=== PATIENT | female | born 1955 | race Caucasian/White ===

== ENCOUNTER → 2019-08-02 | Outpatient (CLI) | payer MEDICARE, OTHER, SELFPAY ==
[2019-08-02 10:13] LABS: Erythrocyte Sedimentation Rate 5 mm/hr (0-30)
[2019-08-02 10:16] LABS: Hematocrit 42.3 % (37-47); Hemoglobin 13.5 g/dL (12.0-15.0); Mean Corp Hgb Conc 31.9 g/dL (32-36); Mean Corpuscular Hgb 30.1 pg (27.0-32.0); Mean Corpuscular Volume 94.2 fL (81-99); Mean Platelet Vol. 11.2 fl (6.2-12.0); Platelet Count 217 K/mm3 (150-450); RBC Distribution Width CV 13.3 % (11.6-14.6); RBC Distribution Width SD 46.5 fl (35.1-43.9); Red Blood Count 4.49 M/mm3 (4.2-5.4); White Blood Count 5.9 K/mm3 (4.4-11.0)
[2019-08-02 10:47] LABS: Thyroid Stim Hormone (TSH) 1.23 uIU/mL (0.358-3.74)
== END | disposition home or self-care (01) ==
LOC: MFPLAB 08:20
PROVIDERS: Family Provider Family Medicine; PCP Family Medicine; Referring Provider Family Medicine; Visit Provider Family Medicine
DX: M79.7 Fibromyalgia (principal)
CPT/HCPCS: 36415; 82306; 84443; 85027; 85652

== ENCOUNTER → 2019-10-11 06:16 | Outpatient (CLI) | payer MEDICARE, OTHER, SELFPAY ==
[2019-08-18 13:36] VITALS: BMI 22.8
--- NOTE | 2019-10-11 15:14 | STRESSREP ---
Stress Test Report Date: 10-11-2019 Procedure: Exercise tolerance test/imaging study Indications: Chest pain Consent: Per the patient Procedure: The patient exercised on a Zeeshan protocol for 9 minutes completing Stage III achieving a peak heart rate of 148 bpm (95 % predicted maximal heart rate) with a peak blood pressure 160/50 mmHg and a peak MET capacity of 10 METs. The baseline ECG demonstrated sinus bradycardia. The peak exercise ECG demonstrated findings compatible with an acceleration-dependent left bundle branch block pattern with the recovery ECG demonstrating return to the QRS duration towards baseline with residual ST and T wave abnormality in leads II, III, aVF, and V4 through V6. There was an occasional PVC pretest. The functional capacity was considered good. There was no complaint of chest discomfort during exercise or recovery. The examination was discontinued secondary to dyspnea. Impression: 1. Technically adequate (percent predicted maximal heart rate greater than 85%) exercise tolerance test 2. Peak exercise ECG with an acceleration-dependent left bundle branch block pattern with the recovery ECG demonstrating return to the QRS duration towards baseline with residual ST/T wave abnormality in leads II, III, aVF, and V4 through V6 3. There was an occasional PVC pretest 4. Nuclear images pending Myocardial perfusion imaging study: Technique: The patient was injected with 11.5 mCi of technetium 99m Cardiolite and subsequently rest SPECT Cardiolite nuclear imaging was obtained in the horizontal long, vertical long, and short axis views. The patient exercised on a Zeeshan protocol for 9 minutes completing Stage III achieving a peak heart rate of 148 bpm (95 % predicted maximal heart rate) with a peak blood pressure 160/50 mmHg and a peak MET capacity of 10 METs. The patient was injected with 31.6 mCi of technetium 99m Cardiolite and subsequently stress SPECT Cardiolite nuclear imaging was obtained in the horizontal long, vertical long, and short axis views. A gated Cardiolite study at peak stress was obtained. Interpretation: Rest and stress SPECT Cardiolite nuclear imaging status post realignment, normalization, and attenuation correction, demonstrates the appearance of relative uniform tracer uptake and myocardial perfusion appearing within normal limits. There is end systolic thickening and brightening. The gated Cardiolite study demonstrates myocardial thickening and inward wall motion. The reported LVEF is 68 %. Impression: 1. Rest and stress SPECT Cardiolite nuclear imaging demonstrate relative uniform tracer uptake and myocardial perfusion appearing within normal limits. 2. The gated Cardiolite study reports an LVEF of 68 %. This note was generated with [employer] software. It may contain incorrect words, spelling, and punctuation that were not noted in checking the note before signing.
== END ==
PROVIDERS: Family Provider Family Medicine; PCP Family Medicine; Referring Provider Internal Medicine Cardiovascular Disease; Visit Provider Internal Medicine Cardiovascular Disease
DX: R07.89 Other chest pain (principal); I25.10 Atherosclerotic heart disease of native coronary artery without angina pectoris; Q24.5 Malformation of coronary vessels; I10 Essential (primary) hypertension
CPT/HCPCS: 78452; 93017; A9500; A4216

== ENCOUNTER 2019-12-06 12:30 | Outpatient (RCR) | payer MEDICARE, OTHER, SELFPAY ==
[2019-08-18 13:36] VITALS: BMI 22.8
--- NOTE | 2019-11-08 13:29 | HP.PTEVAL_ITS ---
Patient's Visit Information SHYANNE ZEPEDA is a 64 year old F referred to Physical Therapy by Ian Benito MD with a diagnosis of LUMBAR DDD,LEFT PIRIFORMIS. Date of Evaluation: 11/08/19 Physical Therapist: Abdi Mccrary PT, Cert MDT, OCS - Visit Plan Frequency: 2x /Week Duration: 4 Weeks Plan: H/O LUMBAR FUSION 2 YEARS AGO SYMPTOMS NEVER WENT AWAY TOTALLY. PT INTERVENTIONS DLS ,POSTURAL EX'S ,LE STRENGTHENING ,MODALITIES NEEDED - Subjective Findings: This 64 y/o female presents to physical therapy with low bacK and with radicular symptoms left leg. Patient has h/o Lumbar fusion L3-5 2 years.Patient noticed symptoms after surgery left leg only thigt and planter heel. Occassional parathesia in toes. Aggraveting walking extended 2 miles ,standing,bending,lifting. Symptoms better sitting ,rest. Patient taking celebrex. Patient return to [facility] ,recommended celebrex and pain management.X-rays in [facility] showed stenosis.Patient bowel/bladder-.Coughing/sneezing-.Patient had PT in past. Patient symptoms affects ADl's,housework tasks . Patient symptoms affects QOL. SOCAIL: . VOCATION: retired - Objective POSTURE: mild foward posture. GAIT: reciprocal pattern. NEURO:c/o parathesia foot ,reflexes L3-4,L4-5,L5-S1 1/3. FLEXABLITY: hams /pririformis WFL. MMT: quads/hams 4/5,hip 4-/5,ankle 4/5. LUMBAR ROM: flexion min/mod loss,extension min/mod loss,side glides min loss - Special Tests L/S Slump test left side: Negative L/S Slump test right side: Negative L/S Left Straight Leg Raise: Negative L/S Right Straight Leg Raise: Negative Lumbar Standing: Flexion - Mechanical Response: No effect Lumbar Standing: Flexion - Symptoms During Testing: Produces Lumbar Standing: Flexion - Symptoms After Testing: No effect Lumbar Standing: Extension - Mechanical Response: No effect Lumbar Standing: Extension - Symptoms During Testing: No effect Lumbar Standing: Extension - Symptoms After Testing: No effect Lumbar Standing: Right Side Glides - Mechanical Response: No effect Lumbar Standing: Right Side [place] - Symptoms During Testing: No effect Lumbar Standing: Right Side [place] - Symptoms After Testing: No effect Lumbar Standing: Left Side [place] - Mechanical Response: No effect Lumbar Standing: Left Side [place] - Symptoms During Testing: No effect Lumbar Standing: Left Side [place] - Symptoms After Testing: No effect - Goals Goal 1:: Patient to be I with HEP Goal Time Frame: 4-6 Weeks Goal 2:: Patient to improve posture for ADLS'S Goal Time Frame: 4-6 Weeks Goal 3:: Patient to decrease low back pain and radicular symptoms left leg by 50% or> to improve function. Goal Time Frame: 4-6 Weeks Goal 4:: Patient to improve lumbar ROM for function of recovery Goal Time Frame: 4-6 Weeks Goal 5:: Patient to improve back owestry score by 5 points or> to improve QOL. Goal Time Frame: 4-6 Weeks - Rehabilitation Potential Physical Therapy Diagnosis: Patient has left lumbar pain with radicular left leg with h/o lumbar fusion L3-5 2 years ago . Patient has deficits with pain worse with walking/standing impairs funtion with ADL'S Rehabilitation Potential: Good - Anticipated Interventions Patient/Client Instruction: Educate patient on: Condition, Plan of Care For the Purpose of:: To decrease pain, To increase ROM, To improve muscle performance and motor function, To improve ability to perform ADL's, To increase tolerance to activity/condition/position, To improve ability of physical actions for home/community/work/leisure, To improve health of tissue, To decrease soft tissue restriction, To increase flexibility/ROM, To improve ability to perform tasks related to life management Therapeutic Exercise to Include: Strength training, Body mechanics, Postural training, Flexibilty training, Dynamic Lumbar Stabilization For the Purpose of:: To decrease pain, To increase ROM, To improve muscle performance and motor function, To improve ability to perform ADL's, To increase tolerance to activity/condition/position, To improve performance and independence with ADL's, To improve gait and locomotor functions, To reduce risk of recurrence, To improve ability to perform tasks related to life management TENS: Yes IF ES: Yes Cryotherapy (ice pack, ice massage): Yes Thermo therapy (hot pack): Yes Ultrasound (thermal/non thermal): Yes For the Purpose of:: To decrease pain, To increase ROM, To improve nutrient delivery to tissue, To increase oxygenation perfusion, To improve health of tissue, To decrease soft tissue restriction Thank you for the opportunity to evaluate your patient. For Medicare and Medicare HMO plans, please review the plan of care and approve it. It will need to be FAXED BACK to us at [phone] for Medicare purposes. For Medicare only, by signing this I certify the plan of care. Please let me know if there are questions or concerns regarding this plan of care. Physician Signature: Date:
--- NOTE | 2019-12-06 13:14 | HP.PTDCSUM ---
HP - PT D/C Summary It has been my pleasure to treat SHYANNE ZEPEDA referred by Ian Benito MD, with the diagnosis of LUMBAR DDD,LEFT PIRIFORMIS for a total of 9 visit(s). Discharge Date: 12/06/19 Please see the following information for a summary of their discharge status. - Subjective Subjective: Symptoms about same with intermitaant parathesia/tingling. Occassional back pain, But enjoyed ex's - Pain Back Pain Intensity (Out of 10): 3 - Overall Improvement % Improvement: 40 - Objective Objective/Function: POSTURE: mild foward posture. GAIT: RECEPROCAL PATTERN. NEURO: c/o parathesia/tingling intermittant,reflexes L3-4,L4-5,L5-S1 2/3. MMT: quads/hams 4/5,hip 4/5 ankle 4/5 - Goals Goal 1:: Patient to be I with HEP Goal Progress: Goal Met Goal 2:: Patient to improve posture for ADLS'S Goal Progress: Goal Met Goal 3:: Patient to decrease low back pain and radicular symptoms left leg by 50% or> to improve function. Goal Progress: Progressing Goal 4:: Patient to improve lumbar ROM for function of recovery Goal Progress: Progressing Goal 5:: Patient to improve back owestry score by 5 points or> to improve QOL. Goal Progress: Goal Met - Plan Plan: D/C TO HEP ..RECOMMEND MRI - D/C Information Discharge Comments: HEP RECOMMEND MRI If there are questions or concerns regarding this patient's physical therapy, please feel free to call me at [phone]. Thank you for the referral of this patient. Sincerely, Abdi Mccrary, PT, Cert MDT, OCS
== END 2019-12-06 19:00 | disposition home or self-care (01) ==
LOC: PT 12:30
PROVIDERS: PCP Family Medicine; Referring Provider Family Medicine; Visit Provider Family Medicine
DX: G57.02 Lesion of sciatic nerve, left lower limb (principal); M51.36 Other intervertebral disc degeneration, lumbar region; Z98.1 Arthrodesis status
CPT/HCPCS: 97110; 97162; 97530

== ENCOUNTER 2020-03-07 08:30 | Outpatient (RCR) | payer MEDICARE, OTHER, SELFPAY ==
[2019-08-18 13:36] VITALS: BMI 22.8
--- NOTE | 2020-02-08 10:36 | HP.PTEVAL_ITS ---
Patient's Visit Information SHYANNE ZEPEDA is a 64 year old F referred to Physical Therapy by Dr. Ian Benito MD with a diagnosis of LUMBAR DISC AND PRESISTENT BACK PAIN AFTER SUGERY. Date of Evaluation: 02/08/20 Physical Therapist: Abdi Mccrary, PT, Cert MDT, OCS - Visit Plan Frequency: 2x /Week Duration: 4 Weeks Plan: PT INTERVENTIONS POSTURE EX'S ,DLS ,LE FLEXABLITY ,GRADED DEB EX'S AND MODALTIES - Subjective This 64 y/o female presents to physical therapy with Lumbar DDD and peristant back pain after surgery.Patient has h/o lumbar fusion L3-5 2 years ago. Patient had prior PT in November 2018 . Then had MRI showed mild buldging discs/stenosis. Patient has noticed symptoms since surgery which never went away.Patient left thigh at night but during day parathesia/tingling foot toes left side. Paient symptom better during day. Seen [facility] recommended PT. Patient conts with celeebrex and muscle relaxer. Patient last seen 12months after surgery and followed up [facility] did recommend nerve coduction.Patient affects sleeping. Aggraveting worse with walking 2miles,bending.lifting. Coughing/sneezing-. Bowel/bladder -. Patient symptoms affects ADL'S ,housework tasks and function. Patient condition affects QOL. SOCIAL; . VOCATION: retired - Pain Left Pain Intensity (Out of 10): 2 Pain Intensity Range: 10 - Objective POSTURE: mild foward posture. GAIT: reciprocal pattern. NEURO: c/o parathesia/tingling right foot.,reflexes L3-4,L4-5,L5-S1 2/3. MMT: quads/hams 4/5,hip flexion 4-/5,ankle 4/5. SYMMTRIES: align. PALAPTION: tender L-S. LUMBAR ROM: flexion min loss,extension min loss,side glides min/mod loss. FLEXABLITY: hams mild tight - Special Tests L/S Slump test left side: Negative L/S Slump test right side: Negative L/S Left Straight Leg Raise: Negative L/S Right Straight Leg Raise: Negative Lumbar Standing: Flexion - Mechanical Response: No effect Lumbar Standing: Flexion - Symptoms During Testing: No effect Lumbar Standing: Flexion - Symptoms After Testing: No effect Lumbar Standing: Extension - Mechanical Response: No effect Lumbar Standing: Extension - Symptoms During Testing: Increases Lumbar Standing: Extension - Symptoms After Testing: No worse Comments:: hams string Lumbar Standing: Right Side Glides - Mechanical Response: No effect Lumbar Standing: Right Side [place] - Symptoms During Testing: No effect Lumbar Standing: Right Side [place] - Symptoms After Testing: No effect Lumbar Standing: Left Side [place] - Mechanical Response: No effect Lumbar Standing: Left Side [place] - Symptoms During Testing: No effect Lumbar Standing: Left Side [place] - Symptoms After Testing: No effect - Goals Goal 1:: Indeoendant with HEP Goal Time Frame: 4-6 Weeks Goal 2:: Improve posture/body mechanics Goal Time Frame: 4-6 Weeks Goal 3:: Decrease lumbar pain and radicular symptoms at night and housework tasks by 60% or > to improve function Goal Time Frame: 4-6 Weeks Goal 4:: Patient improve lumbar ROM for function of recovery Goal Time Frame: 4-6 Weeks Goal 5:: Patient improve back owestry score by 5 points or> to improve QOL. Goal Time Frame: 4-6 Weeks - Rehabilitation Potential Physical Therapy Diagnosis: This patient has lumbar pain with radicular symptoms with h/o of lumbar fusion 2 years ago. with symptoms affecting pain at night and mild symptoms in foot thus benifit from skilled PT Rehabilitation Potential: Good - Anticipated Interventions Patient/Client Instruction: Educate patient on: Condition, Plan of Care For the Purpose of:: To decrease pain, To increase ROM, To improve muscle performance and motor function, To improve ability to perform ADL's, To increase tolerance to activity/condition/position, To improve performance and indep endence with ADL's, To improve ability of physical actions for home/community/work/leisure, To improve health of tissue, To decrease soft tissue restriction, To increase flexibility/ROM, To improve ability to perform tasks related to life management Therapeutic Exercise to Include: Strength training, Postural training, Flexibilty training, Dynamic Lumbar Stabilization, Deb Exercises For the Purpose of:: To decrease pain, To increase ROM, To improve muscle performance and motor function, To improve ability to perform ADL's, To increase tolerance to activity/condition/position, To improve performance and independence with ADL's, To improve ability of physical actions for home/community/work/leisure, To increase flexibility/ROM, To assume or resume ADL's, To improve ability to perform tasks related to life management Thank you for the opportunity to evaluate your patient. For Medicare and Medicare HMO plans, please review the plan of care and approve it. It will need to be FAXED BACK to us at [phone] for Medicare purposes. For Medicare only, by signing this I certify the plan of care. Please let me know if there are questions or concerns regarding this plan of care. Physician Signature: Date:
--- NOTE | 2020-03-07 09:22 | HP.PTDCSUM ---
It has been my pleasure to treat SHYANNE ZEPEDA referred by Dr. Ian Benito MD, with the diagnosis of LUMBAR DISC AND PRESISTENT BACK PAIN AFTER SUGERY for a total of 9 visit(s). Discharge Date: 03/07/20 Please see the following information for a summary of their discharge status. Subjective: Seen DR Benito.Plan new meds at night. May consider pain injection. Will cont on own ex's. Doing ex's more consistent,. Conts to intermittant pain mainly at night pinching. less parathesia foot. Left Pain Intensity (Out of 10): 2 % Improvement: 30 Objective/Function: POSTURE:mild foward posture. GAIT: reciprocal pattern. PALAPTION: unremarkable. MMT: GROSSLY 4/5. LUMBAR ROM: flexion min loss,ext min loss,side glides min loss. FLEXABLITY: HAMS MIN LOSS Goal 1:: Indeoendant with HEP Goal Progress: Goal Met Goal 2:: Improve posture/body mechanics Goal Progress: Goal Met Goal 3:: Decrease lumbar pain and radicular symptoms at night and housework tasks by 60% or > to improve function Goal Progress: Goal Met Goal 4:: Patient improve lumbar ROM for function of recovery Goal 5:: Patient improve back owestry score by 5 points or> to improve QOL. Goal Progress: Goal Met Plan: D/C TO HEP Discharge Comments: HEP ,COULD BENIFIT FROM PAIN MANAGEMENT If there are questions or concerns regarding this patient's physical therapy, please feel free to call me at [phone]. Thank you for the referral of this patient. Sincerely, Abdi Mccrary, PT, Cert MDT, OCS
== END 2020-03-07 19:00 ==
LOC: PT 08:30
PROVIDERS: PCP Family Medicine; Referring Provider Family Medicine; Visit Provider Family Medicine
DX: M51.36 Other intervertebral disc degeneration, lumbar region (principal); G89.18 Other acute postprocedural pain
CPT/HCPCS: 97110; 97162

== ENCOUNTER 2020-07-20 10:30 | Outpatient (RCR) | payer MEDICARE, OTHER, SELFPAY ==
[2019-08-18 13:36] VITALS: BMI 22.8
--- NOTE | 2020-06-13 15:16 | HP.PTEVAL_ITS ---
Patient's Visit Information SHYANNE ZEPEDA is a 65 year old F referred to Physical Therapy by LATONIA Mendieta with a diagnosis of PAIN IN LEFT HIP,LUMBOSCARAL RADICULOPATHY,DDD,SPONDYLOSIS,. Date of Evaluation: 06/13/20 Physical Therapist: Abdi Mccrary, PT, Cert MDT, OCS - Visit Plan Frequency: 2x /Week Duration: 4 Weeks Plan: PT INTERVENTIONS AQUATIC THERAPY FOR DLS,POSTURAL EX'S,LE STRENGTHENING AND PATIENT EDUCATION - Subjective This 65 y/o female presents to physical therapy lumbar pain. Patient has had h/o lumbar fusion L3-01 Jul 2017. Patient pain never got better after surgery . Patient had PT in past thus helped ,but patient last session symptoms of PT became worse with lateral thigh with symptoms worse at night. Patient seen DR Benito after PT . Patient then seen pain management with caudal injection. Patient had x-rays - of hip showed cam joint . Patient then had femoral joint block. Patient then seen DR Pace reviewed x-rays didnt think major concern. Then developed LS left side . Patient had epidural injection in lumbar .Patient only helped symptoms 2-3 nights. Patient pain continues 2-3x /night . But plans to continue with femoral block . Patient stopped ex's prior to given HEP.Thus DR wants try to Aquatic Therapy. Aggraveting factors walking,sleeping,bending and lifting. Patient stopped celebrex. Patient takes aleve at night. Patient bowel/bladder -. Coughing/sneezing-.Patient has pain metatarsels and parathesia/tingling toes. Patient has pain anterior/lateral thigh thigh at night mainly only occassioanl pinch and LS left side. Patient pain is some better with injections.Patient pain affects ADLS' ,housework tasks. Patient symptoms affects QOL. 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 GAIT: reciprocal pattern. NEURO: c/o parathesia /tingling at night,reflexes L3-4,L4-5,L5-S1 1/3. MMT:quads/hams 4/5,hip flexion ,hip abd 4-/5 ,ankle 4/5. LUMBAR ROM: flexion min/mod loss,extension mod loss,side glides mod loss. HIP AROM: 105 degrees flexion ,IR 45 degrees abduction 40 degrees. FLEXABLITY: hams mild - Special Tests L/S Slump test left side: Negative L/S Slump test right side: Negative L/S Left Straight Leg Raise: Negative L/S Right Straight Leg Raise: Negative - Goals Goal 1:: Independant with Aquatic Therapy Goal Time Frame: 4-6 Weeks Goal 2:: Patient to improve lumbar ROM for function of recovery Goal Time Frame: 4-6 Weeks Goal 3:: Patient to decrease lumbar pain and radicaular symptoms by 50 % or > to improve function. Goal Time Frame: 4-6 Weeks Goal 4:: Patient to improve posture for ADL's Goal Time Frame: 4-6 Weeks Goal 5:: Patient to improve back owestry score by 5 points or> to improve function. Goal Time Frame: 4-6 Weeks - Rehabilitation Potential Physical Therapy Diagnosis: This patient has had prior lumbar fusion 2017 L3-5 symptoms never got totally better ,symptoms affected mainly at night and extended walking,standing and any activities can flare symptoms thus benifit from skilled PT. Rehabilitation Potential: Good - Anticipated Interventions Patient/Client Instruction: Educate patient on: Condition, Plan of Care For the Purpose of:: To decrease pain, To increase ROM, To improve muscle performance and motor function, To improve ability to perform ADL's, To increase tolerance to activity/condition/position, To improve performance and independence with ADL's, To improve ability of physical actions for home/community/work/leisure, To improve health of tissue, To decrease soft tissue restriction, To increase flexibility/ROM, To improve ability to perform tasks related to life management Therapeutic Exercise to Include: Strength training, Body mechanics, Postural training, Flexibilty training, In an aquatic setting, Dynamic Lumbar Stabilization For the Purpose of:: To decrease pain, To increase ROM, To improve muscle performance and motor function, To improve ability to perform ADL's, To increase tolerance to activity/condition/position, To improve performance and independenc e with ADL's, To improve ability of physical actions for home/community/work/leisure, To improve health of tissue, To decrease soft tissue restriction, To increase flexibility/ROM, To reduce risk of recurrence, To improve ability to perform tasks related to life management Thank you for the opportunity to evaluate your patient. For Medicare and Medicare HMO plans, please review the plan of care and approve it. It will need to be FAXED BACK to us at [phone] for Medicare purposes. For Medicare only, by signing this I certify the plan of care. Please let me know if there are questions or concerns regarding this plan of care. Physician Signature: Date:
--- NOTE | 2020-07-20 10:52 | HP.PTDCSUM_ITS ---
It has been my pleasure to treat SHYANNE ZEPEDA referred by Fifi Bess NP-C, with the diagnosis of PAIN IN LEFT HIP,LUMBOSCARAL RADICULOPATHY,DDD,SPONDYLOSIS, for a total of 9 visit(s). Discharge Date: 07/20/20 Please see the following information for a summary of their discharge status. Subjective: Patient had femoral nerve blocked helped for 2 weeks . Water ex's helped . Will cont with PT at [facility]. and posture. Plan to see DR Womack for follow ups Left Back Pain Intensity (Out of 10): 1 Left Lower Extremity Pain Intensity (Out of 10): 0 Left Foot Pain Intensity (Out of 10): 0 % Improvement: 50 Objective/Function: Pt deferred noodle stomp today. Reviewed AT program. Attempted to have pt follow AT program sheet, but pt did not have glasses and unable to read without them. Handout provided. Goal 1:: Independant with Aquatic Therapy Goal Progress: Goal Met Goal 2:: Patient to improve lumbar ROM for function of recovery Goal Progress: Progressing Goal 3:: Patient to decrease lumbar pain and radicaular symptoms by 50 % or > to improve function. Goal Progress: Goal Met Goal 4:: Patient to improve posture for ADL's Goal Progress: Goal Met Goal 5:: Patient to improve back owestry score by 5 points or> to improve function. Goal Progress: Goal Met Plan: D/C TO HEP Discharge Comments: HEP AND AQUATICS If there are questions or concerns regarding this patient's physical therapy, please feel free to call me at [phone]. Thank you for the referral of this patient. Sincerely, Abdi Mccrary, PT, Cert MDT, OCS
== END 2020-07-20 19:00 | disposition home or self-care (01) ==
LOC: PT 10:30
PROVIDERS: PCP Family Medicine; Referring Provider Nurse Practitioner Family; Visit Provider Nurse Practitioner Family
DX: M25.552 Pain in left hip (principal); M47.27 Other spondylosis with radiculopathy, lumbosacral region; M51.17 Intervertebral disc disorders with radiculopathy, lumbosacral region; M51.26 Other intervertebral disc displacement, lumbar region; M46.96 Unspecified inflammatory spondylopathy, lumbar region; M47.816 Spondylosis without myelopathy or radiculopathy, lumbar region
CPT/HCPCS: 97113; 97162; 97530

== ENCOUNTER → 2020-10-04 07:46 | Outpatient (CLI) | payer MEDICARE, OTHER, SELFPAY ==
[2020-08-15 14:33] VITALS: BMI 22.4
[2020-10-04 08:17] LABS: Hematocrit 42.7 % (37-47); Hemoglobin 13.6 g/dL (12.0-15.0); Mean Corp Hgb Conc 31.9 g/dL (32-36); Mean Corpuscular Hgb 30.1 pg (27.0-32.0); Mean Corpuscular Volume 94.5 fL (81-99); Mean Platelet Vol. 10.6 fl (6.2-12.0); Platelet Count 250 K/mm3 (150-450); RBC Distribution Width CV 13.4 % (11.6-14.6); RBC Distribution Width SD 46.5 fl (35.1-43.9); Red Blood Count 4.52 M/mm3 (4.2-5.4); White Blood Count 4.9 K/mm3 (4.4-11.0)
[2020-10-04 08:24] LABS: Erythrocyte Sedimentation Rate 4 mm/hr (0-30)
[2020-10-04 08:53] LABS: AST(SGOT) 24 U/L (15-37); Alanine Aminotransfer ALT/SGPT 26 U/L (13-56); Albumin, Serum 3.7 g/dL (3.2-5.0); Alkaline Phosphatase 47 U/L (45-117); Bilirubin, Direct 0.18 mg/dL (0.00-0.30); Cholesterol 145 mg/dL (200); Globulin 3.3 g/dL (2.2-4.2); High Density Lipoprotein 78 mg/dL; Triglycerides 53 mg/dL; Very Low Density Lipoprotein 11 mg/dL (5-40)
[2020-10-04 09:00] LABS: Vitamin B12 733 pg/mL (211-911); Vitamin D,25 Hydroxy 118.6 ng/mL
[2020-10-04 09:02] LABS: ALB/GLOB Ratio 1.1 RATIO (0.9-2.4); AST(SGOT) 21 U/L (15-37); Alanine Aminotransfer ALT/SGPT 26 U/L (13-56); Albumin, Serum 3.8 g/dL (3.2-5.0); Alkaline Phosphatase 50 U/L (45-117); Anion Gap 2 (5-15); BUN 18 mg/dL (7-18); BUN/Creat Ratio 22.5 RATIO (10-20); Chloride 108 mmol/L (98-107); EST Glomerular Filtration Rate 76 mL/min (>60); Est Glom Filt Rate - Afr Amer 92 mL/min (>60); Globulin 3.4 g/dL (2.2-4.2); Glucose 84 mg/dL (74-106); Iron 106 ug/dL (50-170); Protein, Total 7.2 g/dL (6.4-8.2); Sodium Level 141 mmol/L (136-145); Thyroid Stim Hormone (TSH) 1.39 uIU/mL (0.358-3.74)
== END ==
PROVIDERS: PCP Family Medicine; Referring Provider Internal Medicine Cardiovascular Disease; Visit Provider Internal Medicine Cardiovascular Disease
DX: E78.5 Hyperlipidemia, unspecified (principal); R53.83 Other fatigue; E78.00 Pure hypercholesterolemia, unspecified
CPT/HCPCS: 36415; 80053; 80061; 80076; 82306; 82533; 82607; 83540; 84443; 85027; 85652

== ENCOUNTER → 2021-07-10 | Outpatient (CLI) | payer MEDICARE, OTHER, SELFPAY ==
[2021-07-10 10:26] LABS: Bacteria 0 SEEN /hpf (None Seen); Mucous, Urine 0 SEEN /hpf (<or=2+); Red Blood Cells-Urine 0 SEEN /hpf (0-5); White Blood Cells 0 SEEN /hpf (0-5)
[2021-07-10 11:37] LABS: Color, Urine Yellow (Yellow); Glucose, Dipstick Normal (Normal); Ketone-Dipstick Negative (Negative); Leukocyte Esterase-Dipstick Negative /ul (Negative); Nitrite-Dipstick Negative (Negative); Occult Blood-Urine Negative /ul (Negative); Protein-Dipstick Negative (Negative); Urine Bilirubin Dipstick Negative (Negative); Urine Clarity Sl. Cloudy (Clear); Urine Urobilinogen Normal (Normal)
[2021-07-10 11:45] LABS: Squamous Epithelial Cells - UA 0-5 SEEN /hpf (5-10)
== END | disposition home or self-care (01) ==
LOC: LABSPEC 10:10
PROVIDERS: PCP Family Medicine; Visit Provider Family Medicine
DX: R35.0 Frequency of micturition (principal)
CPT/HCPCS: 81001; 87086; 87088

== ENCOUNTER → 2021-09-25 07:57 | Outpatient (CLI) | payer MEDICARE, OTHER, SELFPAY ==
[2021-09-25 09:13] LABS: Vitamin D,25 Hydroxy 118.8 ng/mL
[2021-09-25 09:18] LABS: ALB/GLOB Ratio 0.9 RATIO (0.9-2.4); AST(SGOT) 23 U/L (15-37); Alanine Aminotransfer ALT/SGPT 27 U/L (13-56); Albumin, Serum 3.5 g/dL (3.2-5.0); Alkaline Phosphatase 57 U/L (45-117); Anion Gap 6 (5-15); BUN 24 mg/dL (7-18); BUN/Creat Ratio 28.3 RATIO (10-20); Calcium,Total 9.2 mg/dL (8.5-10.1); Chloride 106 mmol/L (98-107); Cholesterol 139 mg/dL (200); Creatinine, Serum 0.85 mg/dL (0.55-1.02); EST Glomerular Filtration Rate 71 mL/min (>60); Est Glom Filt Rate - Afr Amer 86 mL/min (>60); Globulin 3.7 g/dL (2.2-4.2); Glucose 82 mg/dL (74-106); High Density Lipoprotein 79 mg/dL; Protein, Total 7.2 g/dL (6.4-8.2); Sodium Level 141 mmol/L (136-145); Thyroid Stim Hormone (TSH) 1.23 uIU/mL (0.358-3.74); Triglycerides 42 mg/dL; Very Low Density Lipoprotein 8 mg/dL (5-40)
== END ==
PROVIDERS: PCP Family Medicine; Referring Provider Family Medicine; Visit Provider Family Medicine
DX: M85.80 Other specified disorders of bone density and structure, unspecified site (principal); E78.5 Hyperlipidemia, unspecified
CPT/HCPCS: 36415; 80053; 80061; 82306; 84443

== ENCOUNTER 2021-10-21 14:30 | Outpatient (CLI) | payer MEDICARE, OTHER, SELFPAY ==
[2021-10-21 14:42] VITALS: BP 154/66; PULSE 77; RESP 16; TEMP 36.5; O2SAT 99; BMI 20.7
[2021-10-21] MEDS: 0.9% Saline Lock 10 ML Syringe IV (14:46)
[2021-10-21 15:18] VITALS: BP 142/61; PULSE 65; RESP 16; TEMP 36.8; O2SAT 100
[2021-10-21 16:06] VITALS: BP 136/71; PULSE 67; RESP 16; TEMP 36.8; O2SAT 100
== END 2021-10-21 23:59 | disposition home or self-care (01) ==
LOC: MS3OUT 14:31 → MS3 14:31
PROVIDERS: PCP Family Medicine; Referring Provider Nurse Practitioner Adult Health; Visit Provider Nurse Practitioner Adult Health
DX: Z23 Encounter for immunization (principal); U07.1 COVID-19
CPT/HCPCS: J7050; M0245; Q0245; A4216

== ENCOUNTER → 2022-06-09 | Outpatient (CLI) | payer MEDICARE, OTHER, SELFPAY ==
--- NOTE | 2022-06-09 12:48 | MRI_ITS ---
EXAM: MR LEFT LOWER EXTREMITY WITHOUT INTRAVENOUS CONTRAST, FOOT CLINICAL INDICATION: LEFT FOOT ST MASS,PLANTAR FIBROMA TECHNIQUE: Multiplanar and multisequence MR images of the left foot without intravenous contrast. This report was created using [employer] report [employer]out technology. COMPARISON: None. FINDINGS: LIGAMENTS: MEDIAL COLLATERAL: Unremarkable. Intact. LATERAL COLLATERAL: Unremarkable. Intact. LISFRANC: Unremarkable. Intact. TENDONS: FLEXOR: Extensor and flexor tendons are intact. EXTENSOR: Unremarkable. Intact. PERONEAL: Unremarkable. Intact. TIBIALIS ANTERIOR: Unremarkable. Intact. TIBIALIS POSTERIOR: Unremarkable. Intact. MUSCLES: Unremarkable. No edema or myositis. FLUID: Small anterior tibiotalar joint effusion. No other masses or fluid collections. PLANTAR FASCIA: Unremarkable. Intact. BONES/JOINTS: Plantar fibroma involving the central cord located at the level of the tarsometatarsal articulation with a proximal to distal length of 2.5 cm in anterior to posterior thickness of 0.55 cm. This has a medial to lateral dimension of 1.6 cm. No surrounding fluid or inflammation. No concerning marrow signal alterations. No more than mild arthritic changes for a patient this age. Normal forefoot alignment. No fracture. No joint effusion. OTHER SOFT TISSUES: Unremarkable. 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 Electronically Signed: Tomer Espinoza MD at 16:15 EDT Reading Location ID and State: [facility] / [place] Tel , Service support ,
== END | disposition home or self-care (01) ==
LOC: MRI 12:36
PROVIDERS: PCP Family Medicine; Referring Provider Podiatrist; Visit Provider Podiatrist
DX: D21.22 Benign neoplasm of connective and other soft tissue of left lower limb, including hip (principal); M25.475 Effusion, left foot
CPT/HCPCS: 73718

== ENCOUNTER → 2022-12-24 | Outpatient (CLI) | payer MEDICARE, OTHER, SELFPAY ==
[2022-12-24 09:38] LABS: AST(SGOT) 23 U/L (15-37); Alanine Aminotransfer ALT/SGPT 22 U/L (13-56); Albumin, Serum 3.6 g/dL (3.2-5.0); Alkaline Phosphatase 40 U/L (45-117); Bilirubin, Direct 0.19 mg/dL (0.00-0.30); Cholesterol 141 mg/dL (200); Globulin 3.4 g/dL (2.2-4.2); High Density Lipoprotein 73 mg/dL; Triglycerides 45 mg/dL; Very Low Density Lipoprotein 9 mg/dL (5-40)
== END | disposition home or self-care (01) ==
LOC: LAB 08:13
PROVIDERS: PCP Family Medicine; Visit Provider Internal Medicine Cardiovascular Disease
DX: E78.00 Pure hypercholesterolemia, unspecified (principal)
CPT/HCPCS: 36415; 80061; 80076

== ENCOUNTER → 2023-12-29 | Outpatient (CLI) | payer MEDICARE, SELFPAY ==
[2023-12-29 08:49] LABS: ALB/GLOB Ratio 1.1 RATIO (0.9-2.4); AST(SGOT) 27 U/L (15-37); Alanine Aminotransfer ALT/SGPT 36 U/L (13-56); Albumin, Serum 3.6 g/dL (3.2-5.0); Alkaline Phosphatase 48 U/L (45-117); Anion Gap 5 (5-15); BUN 16 mg/dL (7-18); BUN/Creat Ratio 19.2 RATIO (10-20); Chloride 107 mmol/L (98-107); Cholesterol 150 mg/dL (200); Creatinine, Serum 0.83 mg/dL (0.55-1.02); EST Glomerular Filtration Rate 72 mL/min (>60); Est Glom Filt Rate - Afr Amer 87 mL/min (>60); Globulin 3.4 g/dL (2.2-4.2); Glucose 89 mg/dL (74-106); High Density Lipoprotein 77 mg/dL; Potassium 3.9 mmol/L (3.5-5.1); Sodium Level 141 mmol/L (136-145); Thyroid Stim Hormone (TSH) 1.51 uIU/mL (0.358-3.74); Triglycerides 44 mg/dL; Very Low Density Lipoprotein 9 mg/dL (5-40)
[2023-12-29 09:16] LABS: Vitamin D,25 Hydroxy 89.8 ng/mL
== END | disposition home or self-care (01) ==
LOC: LAB 07:16
PROVIDERS: PCP Family Medicine; Referring Provider Family Medicine; Visit Provider Family Medicine
DX: T45.2X1A Poisoning by vitamins, accidental (unintentional), initial encounter (principal); I10 Essential (primary) hypertension
CPT/HCPCS: 36415; 80053; 80061; 82306; 84443

== ENCOUNTER → 2024-03-21 | Outpatient (CLI) | payer MEDICARE, SELFPAY ==
--- NOTE | 2024-03-21 15:30 | MRI_ITS ---
STUDY: MRI LEFT MIDFOOT REASON FOR EXAM: Female, 68 years old. PAIN, SOFT TISSUE DISORDER TECHNIQUE: Standardized fat and water weighted pulse sequences were obtained in all 3 orthogonal planes. COMPARISON: None. FINDINGS: Skin markers were placed along the plantar aspect of the midfoot at the site of clinical concern. Adjacent to the skin markers, there are 2 adjacent lobulated plantar fibromas, one measuring 1.7 cm AP, 1.2 cm transverse, and 0.7 cm craniocaudad, and the other measuring 1.6 cm AP, 1.0 cm transverse, and 0.4 cm craniocaudad. Normal talonavicular articulation. Normal calcaneocuboid articulation. Normal navicular-cuneiform articulations. Normal intercuneiform articulations. Normal first tarsometatarsal articulation. Normal Lisfranc ligament. Normal second and third tarsometatarsal articulations. Normal cuboid fourth and cuboid fifth tarsometatarsal articulation. There is a small focus of subchondral marrow edema in the inferior aspect of the first metatarsal head. Intact first through fifth metatarsi. There is no demonstrated fracture of the metatarsal bones. Normal tibialis anterior tendon. Normal extensor hallucis longus tendon. Normal extensor digitorum longus tendons. Normal peroneus longus tendon and distal insertion. Normal peroneus brevis tendon and distal insertion. Normal intrinsic muscles of the mid and forefoot region. Normal extensor digitorum brevis muscle. Normal subcutis adipose space. 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 Small focus of subchondral marrow edema in the inferior aspect of the first metatarsal head. Electronically Signed: Fabio Mayo MD at 8:46 EDT ,
== END | disposition home or self-care (01) ==
PROVIDERS: PCP Family Medicine; Referring Provider Podiatrist; Visit Provider Podiatrist
DX: M72.2 Plantar fascial fibromatosis (principal); M79.672 Pain in left foot
CPT/HCPCS: 73718

== ENCOUNTER → 2024-05-31 | Outpatient (CLI) | payer MEDICARE, SELFPAY ==
--- NOTE | 2024-05-31 14:16 | RAD_ITS ---
STUDY: X-RAY - LUMBAR SPINE REASON FOR EXAM: Female, 69 years old. Radiculopathy. TECHNIQUE: 2 view(s) of the lumbar spine were obtained. COMPARISON: None FINDINGS: Osteopenia. Normal lumbar lordosis. No scoliosis. Normal vertebral alignment. Posterior fusion from L3 to L5 with apparent bone grafting and with no complicating features identified. Intervertebral disc space narrowing at L3-4 and L4-5. Normal soft tissues. RAD/Lumbar Spine 2 or 3 Views IMPRESSION: Postsurgical changes from L3 to L5 with mild intervertebral disc space narrowing from L3 to L5. No acute finding. Electronically Signed: Jona Burnham MD at 15:58 EDT ,
[2024-05-31 18:05] LABS: Erythrocyte Sedimentation Rate 5 mm/hr (0-30)
[2024-05-31 18:07] LABS: Absolute Lymphocyte Count 1.95 X10^3/uL (0.83-4.51); Absolute Neutrophil Count 5.1 X10^3/uL (2.0-7.7); Basophil# 0.07 X10^3/uL; Basophil% 0.9 % (0-1); Eosinophil# 0.11 X10^3/uL; Eosinophils% 1.4 % (0-5); Hematocrit 40.7 % (37-47); Hemoglobin 12.9 g/dL (12.0-15.0); Lymphocyte # 1.95 X10^3/ul (0.83-4.51); Mean Corp Hgb Conc 31.7 g/dL (32-36); Mean Corpuscular Hgb 30.4 pg (27.0-32.0); Mean Platelet Vol. 11.7 fl (6.2-12.0); Monocyte# 0.58 X10^3/uL; Monocyte% 7.4 % (0-10); NRBC Flagged by Analyzer 0 % (0-5); Neutrophil # 5.06 X10^3/uL (2.7-7.7); Platelet Count 235 K/mm3 (150-450); RBC Distribution Width CV 13.7 % (11.6-14.6); RBC Distribution Width SD 48.4 fl (35.1-43.9); Red Blood Count 4.24 M/mm3 (4.2-5.4); White Blood Count 7.8 K/mm3 (4.4-11.0)
[2024-05-31 18:29] LABS: Vitamin B12 501 pg/mL (211-911); Vitamin D,25 Hydroxy 73.3 ng/mL
[2024-05-31 18:32] LABS: Anion Gap 5 (5-15); BUN 17 mg/dL (7-18); BUN/Creat Ratio 21.1 RATIO (10-20); Calcium,Total 9.4 mg/dL (8.5-10.1); Chloride 105 mmol/L (98-107); EST Glomerular Filtration Rate 75 mL/min (>60); Est Glom Filt Rate - Afr Amer 91 mL/min (>60); Ferritin 36 ng/mL (8-252); Glucose 75 mg/dL (74-106); Iron 51 ug/dL (50-170); Potassium 3.6 mmol/L (3.5-5.1); Sodium Level 140 mmol/L (136-145); Thyroid Stim Hormone (TSH) 0.981 uIU/mL (0.358-3.740)
[2024-06-02 14:10] LABS: ANTINUCLEAR ANTIBODIES DIRECT Negative (Negative)
== END | disposition home or self-care (01) ==
LOC: MTLAB 14:12
PROVIDERS: PCP Family Medicine; Referring Provider Family Medicine; Visit Provider Family Medicine
DX: R20.2 Paresthesia of skin (principal); M54.16 Radiculopathy, lumbar region
CPT/HCPCS: 36415; 72100; 80048; 82306; 82607; 82728; 83540; 84443; 85025; 85652; 86038

== ENCOUNTER → 2024-09-06 | Outpatient (CLI) | payer MEDICARE, SELFPAY ==
--- NOTE | 2024-09-06 09:07 | BD_ITS ---
STUDY: DUAL ENERGY X-RAY ABSORPTIOMETRY / DXA REASON FOR EXAM: Female, 69 years old. [id number] TECHNIQUE: Bone Mineral Density (BMD) measurements of lumbar spine and bilateral hips were obtained. COMPARISON: None. FINDINGS: Lumbar Spine (L1-L4): g/cm2 (0.872) / T-score (-1.0) / Z-score (1.0) Findings are suggestive of osteopenia with a low fracture risk. Left Femur Total: g/cm2 (0.882) / T-score (-0.5) / Z-score (1.0) Left Femoral Neck: g/cm2 (0.654) / T-score (-1.8) / Z-score (0.0) Right Femur Total: g/cm2 (0.913) / T-score (-0.2) / Z-score (1.3) Right Femoral Neck: g/cm2 (0.660) / T-score (-1.7) / Z-score (0.1) BD/Dexa Bone Density Study IMPRESSION: The patient is considered osteopenic as outlined below according to World [employer] Organization (WHO) criteria with a moderate fracture risk. Reference Information: The T-score is the number of standard deviations above or below the standard which is normal for young adults at their peak bone mineral density. The World Health Organization (WHO) interprets the T-scores as follows: Above -1 Normal bone density Between -1 and -2.5 Osteopenia Equal to / or below -2.5 Osteoporosis As a practical clinical guideline, osteopenia may be graded as follows: Mild -1 through -1.5 Moderate -1.6 through -2.0 Severe -2.1 through -2.4 The Z-score is the number of standard deviations above or below age-matched controls. A Z-score of less than -1.5 would be considered abnormal. References: 1. NIH Osteoporosis and Related Bone Diseases www osteo.org 2. International Society for Clinical Densitometry www iscd.org 3. National Osteoporosis Foundation www nof.org Electronically Signed: Jeffrey Woodward MD at 15:29 EST ,
== END | disposition home or self-care (01) ==
LOC: OPBD 09:04
PROVIDERS: PCP Family Medicine; Referring Provider Family Medicine; Visit Provider Family Medicine
DX: Z00.00 Encounter for general adult medical examination without abnormal findings (principal); Z78.0 Asymptomatic menopausal state
CPT/HCPCS: 77080

== ENCOUNTER 2025-04-03 15:00 | Outpatient (RCR) | payer MEDICARE, SELFPAY ==
--- NOTE | 2025-03-13 16:02 | HP.PTEVAL ---
Patient's Visit Information Visit Information Visit Information: SHYANNE ZEPEDA is a 69 year old F referred to Physical Therapy by Dr. Geoffrey Benito MD with a diagnosis of Lumbar DDD, L hip flexor tightness, Pain in L SI. Date of Evaluation: 03/13/25 Physical Therapist: JAVIER Burrell Visit Plan Frequency: 1x/Week Duration: 2 Months Plan: 1X/ week for HEP for stretching of L hip flexor, L Quad and Hamstring stretching, neutral spine core stability, MT to the L hip and LB with HEP HEP: stretching of HS with green strap in supine and prone Quad strap stretching Subjective Subjective: Pt has some LBP that has been there for 4-5 months and it gets worse over time. She has a trip planned this fall and wants to get better. Her sx are pain L SI area and it will radiate to hip area. She gets a sharp pain in the SI area when she is changing positions. She can lay on her L side but she can only be on there for a short time. She had back surgery since 2017 but that has been common since then. She had some PT after her surgery. She has had some pain in the Quad yesterday. Stairs does not bother her. [place] would probably bother her. She has horrible ER of the hip ROM and when she does that she gets pain in her SI area. 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 She loves to walk but walking will cause it to ache more and a stationary bike does not cause her to be irritated. Pain L SI pain: Pain Intensity (Out of 10): 0 Objective Objective: Gait: Walks with normal gait pattern with decreased hip extension Pt is able to walk on heels and toes Pt has decrease muscle length of B Hamstrings, hip flexor, Quads and Hip ER Tested for leg length discrepancy and she did not have one Trunk AROM: Flexion 50%, Ext 50%, Sb B 75%, Rot B 50% LE MMT: B hip flex 4/5, B knee ext 4/5, B knee flex 4/5, No pain with isometric hip abd/add Some tenderness to the L SI to palpation In standing R hip was higher than the L. Balance/Special Test Scores Oswestry Low Back Score: 7 Goals Goal 1:: I HEP Goal Time Frame: 8-12 Weeks Goal 2:: Be able to change positions without having L SI pain Goal Time Frame: 8-12 Weeks Goal 3:: Increase flexibility of HS/hip flexor and Quads Goal Time Frame: 8-12 Weeks Rehabilitation Potential Rehabilitation Potential: Good Anticipated Interventions Patient/Client Instruction: Educate patient on: Condition and Plan of Care For the Purpose of:: To decrease pain, To increase ROM, To improve nutrient delivery to tissue, To improve muscle performance and motor function, To improve ability to perform ADL's, To increase tolerance to activity/condition/position, To improve performance and independence with ADL's, To improve ability of physical actions for home/community/work/leisure, To improve gait and locomotor functions, To improve health of tissue, To decrease soft tissue restriction and To increase flexibility/ROM Therapeutic Exercise to Include: Strength training, Agility training, Body mechanics, Postural training, Flexibilty training, Gait and locomotor training, Neuromotor development, Passive ROM, Active ROM and Dynamic Lumbar Stabilization For the Purpose of:: To decrease pain, To increase ROM, To improve nutrient delivery to tissue, To improve muscle performance and motor function, To improve ability to perform ADL's, To increase tolerance to activity/condition/position, To improve performance and independence with ADL's, To decrease level of supervision to perform tasks, To improve gait and locomotor functions, To improve health of tissue, To decrease soft tissue restriction and To increase flexibility/ROM Functional Training to Include: Gait training For the Purpose of:: To improve gait and locomotor functions Manual Therapy Techniques to Include: Passive ROM and Soft tissue mobilization For the Purpose of:: To decrease pain, To increase ROM, To improve muscle performance and motor function and To improve health of tissue Text: Thank you for the opportunity to evaluate your patient. For Medicare and Medicare HMO plans, please review the plan of care and approve it. It will need to be FAXED BACK to us at [phone] for Medicare purposes. For Medicare only, by signing this I certify the plan of care. Please let me know if there are questions or concerns regarding this plan of care. Physician Signature: Date:
--- NOTE | 2025-04-03 15:36 | HP.PTDCSUM ---
Discharge Summary D/C summary: It has been my pleasure to treat SHYANNE ZEPEDA referred by Dr. Geoffrey Benito MD, with the diagnosis of Lumbar DDD, L hip flexor tightness, Pain in L SI for a total of 4 visit(s). Discharge Date: 04/03/25 Please see the following information for a summary of their discharge status. Subjective Subjective: Did not do exercises Thursday and Thursday and had a lot of pain on Thursday night and pain in her leg could not sleep through the night through the night. She had the same pain like through the night the pain was 5/10 and could not sleep. She was also wearing new shoes this weekend and not sure if that was an issue. Pain L SI pain: Pain Intensity (Out of 10): 5 Overall Improvement % Improvement: 0 Objective Objective/Function: Press up with sag increases pain L Quad improved in muscle length but still painful and less than the R Pt is indep with HEP Add ball bridge with HS curl today Goals Goal 1:: I HEP Goal Progress: Goal Met Goal 2:: Be able to change positions without having L SI pain Goal Progress: Not Progressing Goal 3:: Increase flexibility of HS/hip flexor and Quads Goal Progress: Progressing Plan Plan: DC PT back to Dr with indep HEP Probable additional imaging as this pain has been going on for 8 months. D/C Information Discharge Comments: DC PT d/c sentence: If there are questions or concerns regarding this patient's physical therapy, please feel free to call me at [phone]. Thank you for the referral of this patient. Sincerely, Ni Schafer, MPT Balance/Gait/Functional tests Balance/Special Test Scores Oswestry Low Back Score: 10 Improvement % Improvement: 0
== END 2025-04-03 15:58 | disposition home or self-care (01) ==
LOC: PT 15:00
PROVIDERS: PCP Family Medicine; Referring Provider Family Medicine; Visit Provider Family Medicine
DX: M51.369 Other intervertebral disc degeneration, lumbar region without mention of lumbar back pain or lower extremity pain (principal); M62.89 Other specified disorders of muscle; M53.3 Sacrococcygeal disorders, not elsewhere classified
CPT/HCPCS: 97110; 97161; 97530

== ENCOUNTER → 2025-04-21 | Outpatient (CLI) | payer MEDICARE, SELFPAY ==
--- NOTE | 2025-04-21 06:44 | ECHOD_ITS ---
Reason For Study Reason For Study: LBBB HX Procedure This was a 2D Doppler, Color Flow transthoracic echocardiogram. Exam performed in department. Left Ventricle Normal LV size. The left ventricular ejection fraction is 60 %. Septal motion consistent with bundle branch block. Stage 1 diastolic dysfunction. Right Ventricle Normal RV size. Normal systolic function. Atria Normal left atrium. Normal right atrium. Mitral Valve Normal mitral valve. Tricuspid Valve Normal tricuspid valve. Aortic Valve Trisinus/trileaflet aortic valve. Pulmonic Valve Normal pulmonic valve. Great Vessels Normal aortic root. The pulmonary artery is normal size. Inferior vena cava collapse with respiration. Pericardium/Pleural No pericardial effusion. MMode/2D Measurements & Calculations LVIDd: 4.2 cm IVSd: 0.97 cm LVOT diam: 2.0 cm LVIDs: 3.4 cm LVPWd: 1.1 cm LVOT area: 3.0 cm2 RVDd: 2.6 cm FS: 19.3 % LAV(MOD-bp): 43.0 ml LVAd ap4: 24.7 cm2 SV(MOD-sp4): 44.0 ml LAV(MOD-bp) Indexed: 26.9 ml/m2 LVLd ap4: 7.4 cm SI(MOD-sp4): 27.5 ml/m2 LAV(MOD-sp2): 36.0 ml EDV(MOD-sp4): 70.7 ml LAV(MOD-sp4): 50.6 ml EDV(sp4-el): 69.7 ml LVAs ap4: 13.6 cm2 LVLs ap4: 5.9 cm ESV(MOD-sp4): 26.7 ml ESV(sp4-el): 26.6 ml EF(MOD-sp4): 62.2 % EF(sp4-el): 61.8 % SV(sp4-el): 43.1 ml LA A4 area: 16.9 cm2 LA dimension(2D): 2.9 cm RA A4 area: 11.0 cm2 Time Measurements MV dec time: 0.10 sec Doppler Measurements & Calculations MV E max everette: 66.2 cm/sec Lat Peak E' [place]: 7.5 cm/sec Med Peak E' [place]: 5.6 cm/sec MV A max everette: 88.0 cm/sec E/E' lat: 8.8 E/E' med: 11.8 MV E/A: 0.75 MV V2 max: 94.3 cm/sec Ao V2 max: 96.2 cm/sec MV max P.6 mmHg MV dec slope: 655.0 cm/sec2 Ao max P.7 mmHg MV V2 mean: 52.1 cm/sec Ao V2 mean: 70.4 cm/sec MV mean P.3 mmHg Ao mean P.2 mmHg MV V2 VTI: 25.7 cm Ao V2 VTI: 25.7 cm AV (velocity ratio): 0.84 MVA(VTI): 2.6 cm2 BRENT(I,D): 2.5 cm2 BRENT(V,D): 2.6 cm2 LV V1 max: 82.9 cm/sec SV(LVOT): 65.6 ml PA V2 max: 105.1 cm/sec LV V1 max P.8 mmHg PA V2 mean: 76.9 cm/sec LV V1 mean P.6 mmHg LV V1 mean: 59.9 cm/sec LV V1 VTI: 21.6 cm ECHO/Echo Complete Interpretation Summary The left ventricular ejection fraction is 60 %. Normal LV size. Stage 1 diastolic dysfunction. Structurally normal valves. Ordering Physician: Rogers Glass Referring Physician: Rogers Glass Performed By: Nancy Zee and Student
--- OUTSIDE RECORDS SUMMARY | 2025-04-21 06:47 | XMS RPT_ITS | CCD ---
Author Organization [facility] Care Team Providers Care Carbon Plant Grinder Name Role Phone GINO RUBI Unavailable Unavailable Naumoff, Karmen Unavailable Unavailable Naumoff, Karmen Unavailable Unavailable GINO RUBI Unavailable Unavailable Naumoff, Karmen Unavailable Unavailable Naumoff, Karmen Unavailable Unavailable DAVE AVINA Unavailable Unavailabl e NAUMOFF, KARMEN Estrada Unavailable Unavailable MEMO DUNLAP Unavailable Unavailable NAUMOFF, KARMEN Estrada Unavailable Unavailable NAUMOFF, KARMEN Estrada Unavailable Unavailable NAUMOFF, KARMEN Estrada Unavailable Unavailable Bunny Benito MD Primary Care Provider Bunny Benito MD Primary Care Provider Dr. Bunny Benito Primary Care Provider Dr. Bunny Benito Referring Provider LATONIA Mcmullen Attending Provider Dr. Samuel Rios Attending Provider Bunny Benito MD Primary Care Provider SEBASTIAN GALVEZ Referring Unavailable BUNNY BENITO Primary Care UnavailSEBASTIAN Casey Attending Unavailable BUNNY BENITO Primary Care UnavailDr. Bunny Mistry MD Primary Care Provider Dr. Bunny Benito MD Referring Provider [phone] Rogers Spears Attending Provider Dr. Bunny Benito MD Attending Provider Dr. Bunny Benito MD Attending Provider [phone] Bunny Benito Primary Care Unavailable Bunny Benito Attending Unavailable Bunny Benito Referring Unavailable Jonh Benitoer Primary Care Unavailable Bunny Benito Attending Unavailable Thong, Jonher Referring Unavailable Bunny Benito Attending Unavailable Ranney, Christjobyer Referring Unavailable Ranney, Christjobyer Primary Care Unavailable Roof ASSESSMENT MANAGER, Rogers Segovia Attending Unavailable Roof ASSESSMENT MANAGER, Rogers H Referring Unavailable Ranluis fernando, Jonahopher Primary Care Unavailable Roof ASSESSMENT MANAGER, Rogers H Attending Unavailable Ranluis fernando, Jonher Referring Unavailable Ranluis fernando, Christopher Primary Care Un[facility]available Samuel Rios Attending Unavailable Roof ASSESSMENT MANAGER, Rogers Segovia Attending Unavailable Thong, Bunny Referring Unavailable RanJonh goulder Primary Care Unavailable Allergies Allergy Classification Reported Allergen(s) Allergy Type Date of Onset Reaction(s) Facility (3 sources) environmental [Other] Propensity to adverse reactions 6 [facility] Work Phone: (1 source) OTHER; Translations: [OTHER] Propensity to adverse reactions (disorder) 6 [facility] Medications Current Medications Medication Drug Class(es) Dates Sig (Normalized) Sig (Original) 8 hr acetaminophen 650 mg extended release oral tablet (10 sources) Start: 08-15-2020 End: 08-26-2021 Acetaminophen (Tylenol Arthritis Pain) 650 mg tablet extended release Active 1300 mg PO AT BEDTIME as needed for pain August 26, 2021 10:49am ascorbic acid 500 mg oral tablet (10 sources) Vitamin C Start: 08-15-2020 take 1 tablet by mouth once daily Ascorbic Acid (Vitamin C) 500 mg tablet Active 500 mg PO DAILY August 15, 2020 1:00am take 1 tablet by mouth once patricio y ascorbic acid (VITAMIN C ORAL) Take 1 tablet by mouth once daily. Active take 1 tablet by mouth once patricio y ascorbic acid (VITAMIN C ORAL) Take 1 tablet by mouth once daily. 0 Active Comment on above: Take 1 tablet by michelle th once daily. ASHWAGANDHA ROOT EXTRACT ORAL (5 sources) take 1 tablet by mouth once daily ASHWAGANDHA ROOT EXTRACT ORAL Take 1 tablet by mouth once daily. Active take 1 tablet by mouth once patricio y ASHWAGANDHA ROOT EXTRACT ORAL Take 1 tablet by mouth once daily. 0 Active Comment on above: Take 1 tablet by michelle th once daily. aspirin 81 mg delayed release oral tablet (12 sources) Platelet Aggregation Inhibitor, Nonsteroidal Anti-inflammatory Drug Start: 01-05-2025 Aspirin (Adult Low Dose Aspirin) 81 mg tablet,delayed release (DR/EC) Active 81 mg PO every other day January 05, 2025 9:33am Start: 08-16-2019 End: 01-05-2025 Aspirin (Adult Low Dose Aspi rin) 81 mg tablet,delayed release (DR/EC) Discontinued 81 mg PO DAILY August 16, 2019 1:00am January 05, 2025 9:36am Comment on above: Take 81 mg by mouth once daily. azelastine hydrochloride 0.137 mg/actuat metered dose nasal spray (5 sources) Histamine-1 Receptor Antagonist Start: take 0.1 spray(s) nasal route once daily azelastine (ASTELIN) 0.1% nasal spray Use 0.1 Sprays in each nostril once daily. 07/16/2021 Active Comment on above: Use 0.1 Sprays in ea ch nostril once daily. Ca-D3-mag gn-mwiw-uiu-bernadette-bor 600 mg calcium- 20 mcg-50 mg tab (5 sources) Start: 7 Ca-D3-mag ga-zcpb-pgh-bernadette-davian r 600 mg calcium- 20 mcg-50 mg tab Take 600 mg by mouth twice daily. 04/07/2017 Active Start: 04-07-2017 Ca-D3-mag ox-z xsl-ldr-vkkm-bor 600 mg calcium- 20 mcg-50 mg tab Take 600 mg by mouth twice daily. 0 04/07/2017 Active Comment on above: Take 600 mg by mouth twice daily. calcium carbonate 1500 mg / cholecalciferol 500 unt oral capsule (5 sources) Vitamin D Start: 08-16-2019 Calcium Carbonate-Vitamin D3 (Calcium 600 With Vitamin D3) 600 mg(1,500mg) -500 unit capsule Active 1 NMA PO TWICE A DAY 0 August 16, 2019 1:00am Start: 08-16-2019 take 1 capsule by [facility] twice daily Calcium Carbonate-Vitamin D3 (Calcium 600 With Vitamin D3) 600 mg(1,500mg) -500 unit capsule Active 1 CAP PO TWICE A DAY August 16, 2019 1:00am cholecalciferol 0.025 mg oral capsule (5 sources) Vitamin D Start: 08-16-2019 take 1 capsule by mouth once daily Cholecalciferol (Vitamin D3) 1,000 unit capsule Active 1000 U PO DAILY August 16, 2019 1:00am cholecalciferol, vitamin D3, (VITAMIN D3 ORAL) (5 sources) take 70107 [IU] by mouth once daily cholecalciferol, vitamin D3, (VITAMIN D3 ORAL) Take 10,000 Units by mouth once daily. Active take 14250 [IU] by mouth once da brian cholecalciferol, vitamin D3, (VITAMIN D3 ORAL) Take 10,000 Units by mouth once daily. 0 Active Comment on above: Take 10,000 Units by mouth once daily. DHEA vaginal suppository 13 mg (CPD) (5 sources) Start: 06-14-2021 DHEA vaginal suppository 13 mg (CPD) Unwrap and insert 1 suppository vaginally at bedtime. 90 Suppository 3 06/14/2021 Active Comment on above: Unwrap and insert 1 suppository vaginally at bedtime. 90 day estradiol 0.524217 mg/hr vaginal system (10 sources) Estrogen Start: 11-16-2020 estradiol (ESTRING) 2 mg (7.5 mcg /24 hour) vaginal ring Indications: Vaginal atrophy Use 2 mg vaginally every 3 months. INSERT 1 RING DIRECTED 1 Each 3 11/16/2020 Active Start: 08-16-2019 End: 08-18-2019 Estradiol (Estrace) 0.01 % ( 0.1 mg/gram) cream Discontinued 1 g VAGINAL TWICE A WEEK August 16, 2019 1:00am August 18, 2019 2:38pm Comment on above: Use 2 mg vaginally e very 3 months. INSERT 1 RING DIRECTED fluticasone propionate 0.05 mg/actuat metered dose nasal spray (2 sources) Corticosteroid Start: 01-06-20 25 take 50 ug nasal route once daily in the evening Fluticasone Propionate (Flonase Allergy Relief) 50 mcg/actuation spray,suspension Active 1 NMA INTRANASAL EVERY EVENING January 05, 2025 12:00am administer into each nostril FOLIC ACID/MULTIVITS-MIN/L UT (CENTRUM SILVER ORAL) (5 sources) take 1 tablet by mouth once daily FOLIC ACID/MULTIVITS-MIN/ LUT (CENTRUM SILVER ORAL) Take 1 tablet by mouth once daily. Active take 1 tablet by mouth once patricio y FOLIC ACID/MULTIVITS-MIN/LUT (CENTRUM SILVER ORAL) Take 1 tablet by mouth once daily. 0 Active Comment on above: Take 1 tablet by michelle once daily. hydrocortisone 25 mg/ml topical cream (5 sources) Corticosteroid Start: 08-02-2021 hydrocortisone 2.5 % cream Apply to affected area once daily. Apply 0.5g to affected area daily for two weeks, then every other day for two weeks and then twice weekly for two weeks 28 g 1 08/02/2021 Active Comment on above: Apply to affected ar ea once daily. Apply 0.5g to affected area daily for two weeks, then every other day for two weeks and then twice weekly for two weeks ipratropium bromide 0.042 mg/actuat metered dose nasal spray (9 sources) Anticholinergic Start: 08-25-2022 Ipratropium Cement 42 mcg (0.06 %) spray,non-aerosol Active 2 NMA INTRANASAL DAILY August 25, 2022 1:00am administer into each nostril Start: 08-25-2022 take 1 spray(s) nasa l route once daily Ipratropium Cement Active 2 SPRAY INTRANASAL DAILY August 25, 2022 1:00am administer into each nostril Ipratropium Brom kaitlin (ATROVENT) 21 mcg (0.03 %) nasal spray Use 2 Sprays in the nose every 12 hours. Active Comment on above: Use 2 Sprays in the nose every 12 hours. lisinopril 10 mg oral tablet (14 sources) Angiotensin Converting Enzyme Inhibitor Start: take 2 tablets by mouth once daily Lisinopril 10 mg tablet Active 20 mg PO daily March 14, 2025 9:08am Start: 03-14-2025 End: 03-14-2025 take 1 tablet by mouth once daily Lisinopril 10 mg tablet Discontinued 10 mg PO daily March 14, 2025 12:00am March 14, 2025 9:08am Start: 08-16-2019 End: 03-14-2025 take 1 tablet by mouth once daily Lisinopril 5 mg tablet Discontinued 5 mg PO DAILY August 16, 2019 1:00am March 14, 2025 8:42am Comment on above: Take 5 mg by mouth o nce daily. loratadine 10 mg oral tablet (12 sources) Start: 01-05-2025 take 1 tablet by mouth once daily Loratadine (Claritin) 10 mg tablet Active 10 mg PO daily January 05, 2025 12:00am Start: 08-16-2019 End: 11-24-2023 take 1 tablet by mouth once daily Loratadine (Claritin) 10 mg tablet Discontinued 10 mg PO DAILY August 16, 2019 1:00am November 24, 2023 3:30pm Comment on above: Take 10 mg by mouth once daily. MEDICATION, NON-DATABASE (10 sources) take 1 capsule by mouth once daily at bedtime MEDICATION, NON-DATABASE Take 1 capsule by mouth daily at bedtime. CBD Active take 1 tablet by michelle th once daily at bedtime MEDICATION, NON-DATABASE Take 1 tablet b y mouth daily at bedtime. Sleep Well Active take 1 capsule by mo uth once daily at bedtime MEDICATION, NON-DATABASE Take 1 capsule by mouth daily at bedtime. CBD 0 Active take 1 tablet by michelle th once daily at bedtime MEDICATION, NON-DATABASE Take 1 tablet b y mouth daily at bedtime. Sleep Well 0 Active Comment on above: Take 1 capsule by mo uth daily at bedtime. CBD Take 1 tablet by michelle th daily at bedtime. Sleep Well Pynwocsq-Uhb-Gt-Lycope n-Lutein (Centrum Silver) 0.4-300-250 mg-mcg-mcg tablet (5 sources) Start: 08-16-2019 Rlhfkves-Vjt-Hb-Lycopen -Lutein (Centrum Silver) 0.4-300-250 mg-mcg-mcg tablet Active 1 {tbl} PO DAILY August 16, 2019 1:00am Start: 08-16-2019 take 1 tablet by michelle th once daily Caiqnxqq-Cov-Eh-Lycopen-Lutein (Centrum Silver) 0.4-300-250 mg-mcg-mcg tablet Active 1 TABLET PO DAILY August 16, 2019 1:00am naproxen sodium 220 mg oral tablet (15 sources) Nonsteroidal Anti-inflammatory Drug Start: 08-16-2019 End: 08-26-2021 take 1 tablet by mouth once daily as needed for pain Naproxen Sodium (Aleve) 220 mg tablet Active 220 mg PO DAILY as needed for pain August 26, 2021 10:50am naproxen sodium 220 mg cap Take 1 capsule by mouth as needed. Active Comment on above: Take [address] [facility] as needed. polyethylene glycol 3350 08858 mg powder for oral solution (5 sources) Osmotic Laxative Start: 1 take 4-8 [oz_av] by mouth once daily polyethylene glycol 3350 (MIRALAX) 17 gram/dose powder Take 17 g by mouth once daily. Dissolve in 4-8 oz of liquid and drink. 238 g 05/07/2021 Active Comment on above: Take 17 g by mouth o nce daily. Dissolve in 4-8 oz of liquid and drink. polyethylene glycol 3350 256531 mg / potassium chloride 2970 mg / sodium bicarbonate 6740 mg / sodium chloride 5860 mg / sodium sulfate 41984 mg powder for oral solution (1 source) Osmotic Laxative Start: 2 End: 2 peg 3350-Electrolytes (GOLYTELY) 236-22.74-6.74 -5.86 gram suspension Indications: Colon cancer screening Take 4,000 mL by mouth one time only for 1 dose. Refer to printed prep instructions from your provider. 4000 mL 0 08/28/2022 08/28/2022 Active Comment on above: [facility] for 1 dose. Refer to printed prep instructions from your provider. QUERCETIN DIHYDRATE, BULK, MISC (5 sources) take 800 mg by mouth once daily QUERCETIN DIHYDRATE, BULK, MISC Take 800 mg by mouth once daily. Active take 800 mg by mouth once daily QUERCETIN DIHYDRATE, BULK, MISC Take 800 mg by mouth once daily. 0 Active Comment on above: Take 800 mg by mouth once daily. traZODone hydrochloride 50 mg oral tablet (2 sources) Serotonin Reuptake Inhibitor Start: 5 take 1 tablet by mouth at bedtime Trazodone 50 mg tablet Active 50 mg PO AT BEDTIME March 14, 2025 12:00am ubidecarenone 75 mg oral capsule (7 sources) Start: 5 Coenzyme Q10 (Ultra Coq10) 75 mg capsule Active 75 mg PO daily January 05, 2025 12:00am Start: 08-16-2019 End: 08-15-2020 Coenzyme Q10 (Co Q-10) 100 m g capsule Discontinued 100 mg PO THREE TIMES A DAY August 16, 2019 1:00am August 15, 2020 3:35pm Completed/Discontinued Medications Medication Drug Class(es) Dates Sig (Normalized) Sig (Original) Ashwagandha Root Extract (3 sources) Start: 08-26-2021 End: 11-24-2023 take 300 mg by mouth once daily Ashwasoniadha Root Extract Discontinued 300 MG PO DAILY August 26, 2021 1:00am November 24, 2023 3:29pm Start: 08-26-2021 take 300 mg by mouth once patricio y Ashjona Root Extract Active 300 MG PO DAILY August 26, 2021 1:00am Ashwagandha Root Extract 300 mg capsule (2 sources) Start: 08-26-2021 End: 11-24-2023 take 1 capsule by mouth once daily Ashwasoniadha Root Extract 300 mg capsule Discontinued 300 mg PO DAILY August 26, 2021 1:00am November 24, 2023 3:29pm atorvastatin 20 mg oral tablet (20 sources) HMG-CoA Reductase Inhibitor Start: 12-07-2019 End: 08-15-2024 take 1 tablet by mouth once daily Atorvastatin 20 mg tablet Discontinued 0 .ROUTE .COMPLEX 90 4 April 06, 2024 12:34pm August 15, 2024 11:10am TAKE 1 TABLET BY MOUTH EVERY DAY Start: 08-18-2019 End: 12-07-2019 take 1 tablet by mouth every other day Atorvastatin 20 mg tablet Discontinued 20 mg PO .COMPLEX 45 3 October 17, 2019 5:50pm December 07, 2019 3:14pm 20 mg PO 1 tab every other day; Start: 08-16-2019 End: 08-18-2019 take 1 tablet by mouth once daily Atorvastatin 20 mg tablet Discontinued 20 mg PO DAILY August 16, 2019 1:00am August 18, 2019 2:38pm Comment on above: Take 20 mg by mouth daily at bedtime. azithromycin 250 mg oral tablet (5 sources) Macrolide Antimicrobial Start: 10-21-19 End: 08-25-20 take 1 capsule by mouth once daily Azithromycin (Zithromax Z-Harley) 250 mg Capsule Discontinued 250 mg PO DAILY October 21, 2021 1:00am August 25, 2022 12:12pm CBD (5 sources) Start: 08-26-20 End: 11-24-19 take 50 mg by mouth at bedtime CBD Discontinued 50 mg PO AT BEDTIME 0 August 26, 2021 1:00am November 24, 2023 3:30pm Start: 08-26-2021 End: 11-24-2023 take 50 mg by mouth at bedtime CBD Discontinued 50 mg PO AT BEDTIME August 26, 2021 1:00am November 24, 2023 3:30pm Start: 08-26-2021 End: 11-24-2023 take 50 mg by mouth at bedtime CBD Discontinued 50 MG PO AT BEDTIME August 26, 2021 1:00am November 24, 2023 3:30pm Start: 08-26-2021 take 50 mg by mouth at bedtime CBD Active 50 MG PO AT BEDTIME August 26, 2021 1:00am diphenhydrAMINE hydrochloride 25 mg oral capsule (3 sources) Histamine-1 Receptor Antagonist Start: 11-24-2023 End: 03-14-2025 take 1 capsule by mouth at bedtime Diphenhydramine Hcl (Benadryl) 25 mg capsule Discontinued 25 mg PO AT BEDTIME November 24, 2023 1:00am March 14, 2025 8:41am doxycycline hyclate 100 mg oral capsule (3 sources) Tetracycline-clas s Drug Start: 09-26-2023 End: 10-03-2023 take 1 capsule by mouth twice daily Doxycycline Hyclate 100 mg capsule Discontinued 100 mg PO TWICE A DAY 14 7 0 September 26, 2023 1:00am October 02, 2023 1:00am October 03, 2023 1:26am fexofenadine hydrochloride 60 mg oral tablet (3 sources) Histamine-1 Receptor Antagonist Start: 11-24-2023 End: 01-05-2025 take 1 tablet by mouth once daily Fexofenadine (Karen Allergy) 60 mg tablet Discontinued 60 mg PO DAILY November 24, 2023 1:00am January 05, 2025 9:34am gabapentin 100 mg oral capsule (5 sources) Anti-epileptic Agent Start: 08-15-2020 End: 08-26-2021 take 1 capsule by mouth at bedtime Gabapentin 100 mg capsule Discontinued 100 mg PO AT BEDTIME August 15, 2020 1:00am August 26, 2021 10:49am glucosamine sulfate 500 mg oral tablet (10 sources) Start: 08-16-2019 End: 03-14-2025 take 2 tablets by mouth once daily Glucosamine Sulfate (Glucosamine) 500 mg tablet Discontinued 1000 mg PO DAILY August 16, 2019 1:00am March 14, 2025 8:42am Comment on above: Take 1,000 mg by michelle th once daily. [place]-3 Fatty Acids (Fish Oil Concentrate) 1,000 mg capsule (5 sources) Start: 08-16-2019 End: 08-26-2021 take 1 capsule by mouth once daily [place]-3 Fatty Acids (Fish Oil Concentrate) 1,000 mg capsule Discontinued 1000 mg PO DAILY August 16, 2019 1:00am August 26, 2021 10:50am Start: 08-16-2019 End: 08-26-2021 take 1 capsule by mouth once daily [place]-3 Fatty Acids (Fish Oil Concentrate) 1,000 mg capsule Discontinued 1000 MG PO DAILY August 16, 2019 1:00am August 26, 2021 10:50am Quercetin (5 sources) Start: 08-26-2021 End: 01-05-2025 take 1 tablet by mouth once daily quercetin 400 mg tablet Discontinued 800 mg PO DAILY 0 August 26, 2021 1:00am January 05, 2025 9:35am Start: 08-26-2021 End: 01-05-2025 take 1 tablet by mouth once daily quercetin 400 mg tablet Discontinued 800 mg PO DAILY August 26, 2021 1:00am January 05, 2025 9:35am Start: 08-26-2021 take 800 mg by mouth once patricio y quercetin Active 800 MG PO DAILY August 26, 2021 1:00am Sleep Well (5 sources) Start: 08-26-2021 End: 11-24-2023 Sleep Well Discontinued 2 NM A PO AT BEDTIME 0 August 26, 2021 1:00am November 24, 2023 3:30pm Start: 08-26-2021 End: 11-24-2023 Sleep Well Discontinued 2 NM A PO AT BEDTIME August 26, 2021 1:00am November 24, 2023 3:30pm Start: 08-26-2021 End: 11-24-2023 take 2 capsules by mouth at bedtime Sleep Well Discontinued 2 CAP PO AT BEDTIME August 26, 2021 1:00am November 24, 2023 3:30pm Start: 08-26-2021 take 2 capsules by m outh at bedtime Sleep Well Active 2 CAP PO AT BEDTIME August 26, 2021 1:00am Zinc (10 sources) Start: 08-15-2020 End: 08-26-2021 take 1 tablet by mouth once daily Zinc 50 mg tablet Discontinued 50 mg PO DAILY August 15, 2020 1:00am August 26, 2021 10:50am Start: 08-15-2020 End: 08-26-2021 take 50 mg by mouth once daily Zinc Discontinued 50 MG PO DAILY August 15, 2020 1:00am August 26, 2021 10:50am take 50 mg by mouth once daily Z INC ORAL Take 50 mg by mouth once daily. Active take 50 mg by mouth once daily Z INC ORAL Take 50 mg by mouth once daily. 0 Active Comment on above: Take 50 mg by mouth once daily. 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; Translations: [Malformation of coronary vessels] 08-16-2019 Chronic Chronic obstructive pulmonary disease and bronchiectasis (4 sources) Bronchitis; Translations: [Bronchitis, not specified as acute or chronic] 09-26-2023 Episodic Conduction disorders (17 sources) Left bundle branch block; Translations: [Left bundle-branch block, unspecified] Onset: 03-14-2025 04-30-2021 Chronic Coronary atherosclerosis and other heart disease (19 sources) Atherosclerotic heart disease of [place] coronary artery without angina pectoris; Translations: [Coronary atherosclerosis] Onset: 08-11-2016 09-24-2021 Chronic Comment on above: Mild CAD on remote c 2015. Disorders of lipid metabolism (18 sources) Hyperlipidemia, unspecified; Translations: [Mixed hyperlipidemia] Onset: 07-20-2017 04-29-2021 Chronic Essential hypertension (20 sources) Essential (primary) hypertension; Translations: [Essential hypertension] Onset: 07-20-2017 04-29-2021 Chronic Menopausal disorders (10 sources) Atrophic vaginitis; Translations: [Postmenopausal atrophic vaginitis] Onset: 02-20-2012 02-20-2012 Chronic Nonspecific chest pain (6 sources) Chest pain; Translations: [Chest pain, unspecified] Onset: 03-14-2025 03-14-2025 Episodic Osteoarthritis (2 sources) Unspecified osteoarthritis, unspecified site; Translations: [Unspecified osteoarthritis, unspecified site] Onset: 07-20-2017 Chronic Other acquired deformities (2 sources) Scoliosis, unspecified; Translations: [Scoliosis, unspecified] Onset: 07-20-2017 Chronic Other female genital disorders (5 sources) Dyspareunia; Translations: [Dyspareunia] Onset: 02-20-2012 02-20-2012 Chronic Other screening for suspected conditions (not mental disorders or infectious disease) (6 sources) Patient encounter status; Translations: [Encounter for screening mammogram for malignant neoplasm of breast] Onset: 11-01-2024 Episodic Prolapse of female genital organs (12 sources) Midline cystocele; Translations: [Cystocele, midline] Onset: 02-20-2012 Resolved: 02-20-2012 02-20-2012 Chronic Spondylosis; intervertebral disc disorders; other back problems (5 sources) Chronic back pain ; Translations: [Dorsalgia, unspecified] 04-29-2021 Episodic Unclassified (2 sources) Spinal stenosis, lumbar region without neurogenic claudication; Translations: [Spinal stenosis, lumbar region without neurogenic pierce] Onset: 07-20-2017 Unclassified (1 source) Other intervertebral disc degeneration, lumbar region without mention of lumbar back pain or lower extremity pain; Translations: [Other intervertebral disc degeneration, lumbar region without mention of lumbar back pain or lower extremity pain] Onset: 04-14-2025 Viral infection (5 sources) Disease caused by 2019-nCoV; Translations: [COVID-19] 10-18-2021 Episodic Past or Other Problems Problem Classification Problem Date Documented Da te Episodic/Chronic Abdominal pain (2 sources) Indigestion; Translations: [Epigastric pain] Onset: 05-09-2011 Resolved: 04-29-2021 04-29-2021 Episodic Other acquired deformities (2 sources) Spondylolisthesis, lumbar region; Translations: [Spondylolisthesis , lumbar region] Onset: 07-20-2017 Episodic Other bone disease and musculoskeletal deformities (5 sources) Osteopenia; Translations: [Other specified disorders of bone density and structure, unspecified site] Onset: 07-27-2013 07-27-2013 Episodic Other nervous system disorders (1 source) Paresthesia of skin; Translations: [Paresthesia of skin] Onset: 06-20-2024 Episodic Results Test Name Value Interpretation Reference Range Facility PT D/C Summary (1)on 025 PT D/C Summary (1) [facility] [address] [place] [address] / REHABILITATION SERVICES DISCHARGE SUMMARY MR#: [id number] Acct: [id number] Name: ANGELA CELIS Rep #: [id number] : 1955 69 From: Ni HERRERA Referring Dr.: Dr. Bunny Benito MD Status: REG RCR Insurance: [employer] SELF PAY INSURANCE Discharge Summary D/C summary: It has been my pleasure to treat ANGELA CELIS referred by Dr. Bunny Benito MD, with the diagnosis of Lumbar DDD, L hip flexor tightness, Pain in L SI for a total of 4 visit(s). Discharge Date: 04/03/25 Please see the following information for a summary of their discharge status. Subjective Subjective: Did not do exercises Thursday and Thursday and had a lot of pain on Thursday night and pain in her leg could not sleep through the night through the night. She had the same pain like through the night the pain was 5/10 and could not sleep. She was also wearing new shoes this weekend and not sure if that was an issue. Pain L SI pain: Pain Intensity (Out of 10): 5 Overall Improvement % Improvement: 0 Objective Objective/Function: Press up with sag increases pain L Quad improved in muscle length but still painful and less than the R Pt is indep with HEP Add ball bridge with HS curl today Goals Goal 1:: I HEP Goal Progress: Goal Met Goal 2:: Be able to change positions without having L SI pain Goal Progress: Not Progressing Goal 3:: Increase flexibility of HS/hip flexor and Quads Goal Progress: Progressing Plan Plan: DC PT back to Dr with indep HEP Probable additional imaging as this pain has been going on for 8 months. D/C Information Discharge Comments: DC PT d/c sentence: If there are questions or concerns regarding this patient's physical therapy, please feel free to call me at [phone]. Thank you for the referral of this patient. Sincerely, JAVIER Burrell Balance/Gait/Function al tests Balance/Special Test Scores Oswestry Low Back Score: 10 Improvement % Improvement: 0 04/03/25 1536 CC: Dr. Bunny Benito MD Signed Normal [facility] Cardiology Visit Reporton Cardiology Visit Report [facility] [address] [place] [address] OFFICE VISIT Date of Service: 03/14/25 MR#: [id number] Acct: [id number] Name: ANGELA CELIS Rep #: [id number] : 1955 Provider: LATONIA hall Age/Sex: 69/F Location: [facility] Status: Signed HPI HPI History of Present Illness Details: This is a 69-year-old white female who presents today for outpatient cardiovascular follow up of a history of underlying CAD/intramyocardial bridge superimposed upon hyperlipidemia and hypertension. She has a chronic LBBB and we printed a copy of her ECG for her to carry with her. She acknowledges mid sternal and right sided chest pain. She considers this to be rare and occur randomly. She describes this as dull and brief. She denies palpitations, bilateral lower extremity edema, or claudication. She acknowledges shortness of breath with activity along with shortness of breath at rest. She denies orthopnea, cough, or PND. She denies lightheadedness, dizziness, near- syncope, or syncope. She denies fatigue. Intake Vital Signs 01/05/25 09:32 03/14/25 08:10 Height 5 ft 4 in 5 ft 4 in Weight: 129 lb 124 lb BMI 22.1 21.2 BP 156/80 H 163/73 H Blood Pressure Location Lt brachial Lt brachial Position Sitting Sitting Respiration 16 16 Pulse 73 66 Pulse Source Monitor NIBP Pulse Oximetry (%) 96 Oxygen Delivery Method room air Intake Visit Reasons: REQUESTED FU DUE TO RX Associate Dean Required: No Is patient in pain?: No Allergies No Known Allergies Allergy (Verified 03/14/25 08:40) Medications ???Medication ???Instructions ???Recorded ???Confirmed ???Type calcium 600 mg (as 1 cap PO BID 08/16/19 03/14/25 His tory carbonate)-vitamin D3 12.5 mcg (500 unit) capsule (Calcium with Vit D3) cholecalciferol (vitamin D3) 25 1,000 unit PO DAILY 08/16/1903/14 History mcg (1,000 unit) capsule ivxztxip-vrd-ttfxc acid 0.4 1 tab PO DAILY 08/16/19 03/14/25 H istory mg-lycopene 300 mcg-lutein 250 mcg tablet (Centrum Silver) ascorbic acid (vitamin C) 500 mg 500 mg PO DAILY 08/15/20 03/14/25 History tablet acetaminophen 650 mg 1,300 mg PO QHS PRN pain 08/26/21 03/14/25 History tablet,extended release (Tylenol Arthritis Pain) naproxen sodium 220 mg tablet 220 mg PO DAILY PRN pain 08/26/21 03/14/25 History (Aleve) ipratropium bromide 42 mcg (0.06 2 spray intranasal DAILY 08/25/22 03/14/25 History %) nasal spray atorvastatin 20 mg tablet See Rx Instructions .Route 4 03/14/25 Rx .COMPLEX #90 tabs aspirin 81 mg tablet,delayed 81 mg PO Q OTHER DAY 01/05/2502/26 History release (Adult Low Dose Aspirin) coenzyme Q10 75 mg capsule (Ultra 75 mg PO QDAY 01/05/25 03/14/25 H istory CoQ10) fluticasone propionate 50 1 spray intranasal QPM 01/05/25 History mcg/actuation nasal spray,suspension (Flonase Allergy Relief) loratadine 10 mg tablet (Claritin) 10 mg PO QDAY 01/05/25 03/14/25 History lisinopril 10 mg tablet 20 mg PO QDAY 03/14/25 03/14/25 Hi story trazodone 50 mg tablet 50 mg PO QHS 03/14/25 03/14/25 His tory Ejection fraction %: 55 Have you fallen in the past year?: No [facility] Medical History LBBB (left bundle branch block) Bladder prolapse History of left heart catheterization (LHC) ( 06/25/16) IBS (irritable bowel syndrome) Anxiety Coronary-myocardial bridge Atherosclerotic heart disease of [place] coronary artery without angina pectoris Mixed hyperlipidemia Essential hypertension Surgical History History of hysterectomy History of dilatation and curettage History of back surgery History of tonsillectomy Family History Father CAD (coronary artery disease) Mother CAD (coronary artery disease) Sister Carotid artery disease Brother Heart disease Social History Smoking Status: Never smoker alcohol intake: current details: rare substance use type: does not use caffeine: Yes Type: coffee Number of servings: 2 ROS Const Const: Negative for fatigue or weakness Eyes Eyes: Negative for change in vision ENT ENT: Negative for dizziness or balance problems Cardio Chest Pain: Yes Frequency: other (Rarely) Character: dull Onset: other (Randomly) Location: mid sternal and right chest Duration: brief Palpitations: No Edema: None Muscle aches with walking: None Resp Respiratory: Positive for SOB with activity (SOB vs tightness) and SOB at rest (SOB vs tightness); Negative for SOB orthopnea SOB lying down GI GI: Negative nausea or heartburn : Negative for hematuria or (more content not included)... Normal [facility] Inital Evaluation (1) - PTon 03-13-2025 Inital Evaluation (1) - PT [facility] Physical Therapy [facility] [address] [place] [address] [address] [place] [id number] / REHABILITATION SERVICES INITIAL EVALUATION MR#: [id number] Acct: [id number] Name: ANGELA CELIS Rep #: [id number] : 1955 69 From: Ni HERRERA Referring Dr.: Dr. Bunny Benito MD Status: REG R Insurance: [facility] [employer] SELF PAY INSURANCE Patient's Visit Information Visit Information Visit Information: ANGELA CELIS is a 69 year old F referred to Physical Therapy by Dr. Bunny Benito MD with a diagnosis of Lumbar DDD, L hip flexor tightness, Pain in L SI. Date of Evaluation: 03/13/25 Physical Therapist: JAVIER Burrell Visit Plan Frequency: 1x/Week Duration: 2 Months Plan: 1X/ week for HEP for stretching of L hip flexor, L Quad and Hamstring stretching, neutral spine core stability, MT to the L hip and LB with HEP HEP: stretching of HS with green strap in supine and prone Quad strap stretching Subjective Subjective: Pt has some LBP that has been there for 4-5 months and it gets worse over time. She has a trip planned this fall and wants to get better. Her sx are pain L SI area and it will radiate to hip area. She gets a sharp pain in the SI area when she is changing positions. She can lay on her L side but she can only be on there for a short time. She had back surgery since 2017 but that has been common since then. She had some PT after her surgery. She has had some pain in the Quad yesterday. Stairs does not bother her. [place] would probably bother her. She has horrible ER of the hip ROM and when she does that she gets pain in her SI area. 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 She loves to walk but walking will cause it to ache more and a stationary bike does not cause her to be irritated. Pain L SI pain: Pain Intensity (Out of 10): 0 Objective Objective: Gait: Walks with normal gait pattern with decreased hip extension Pt is able to walk on heels and toes Pt has decrease muscle length of B Hamstrings, hip flexor, Quads and Hip ER Tested for leg length discrepancy and she did not have one Trunk AROM: Flexion 50%, Ext 50%, Sb B 75%, Rot B 50% LE MMT: B hip flex 4/5, B knee ext 4/5, B knee flex 4/5, No pain with isometric hip abd/add Some tenderness to the L SI to palpation In standing R hip was higher than the L. Balance/Special Test Scores Oswestry Low Back Score: 7 Goals Goal 1:: I HEP Goal Time Frame: 8-12 Weeks Goal 2:: Be able to change positions without having L SI pain Goal Time Frame: 8-12 Weeks Goal 3:: Increase flexibility of HS/hip flexor and Quads Goal Time Frame: 8-12 Weeks Rehabilitation Potential Rehabilitation Potential: Good Anticipated Interventions Patient/Client Instruction: Educate patient on: Condition and Plan of Care For the Purpose of:: To decrease pain, To increase ROM, To improve nutrient delivery to tissue, To improve muscle performance and motor function, To improve ability to perform ADL's, To increase tolerance to activity/condition/po sition, To improve performance and independence with ADL's, To improve ability of physical actions for home/community/work/l eisure, To improve gait and locomotor functions, To improve health of tissue, To decrease soft tissue restriction and To increase flexibility/ROM Therapeutic Exercise to Include: Strength training, Agility training, Body mechanics, Postural training, Flexibilty training, Gait and locomotor training, Neuromotor development, Passive ROM, Active ROM and Dynamic Lumbar Stabilization For the Purpose of:: To decrease pain, To increase ROM, To improve nutrient delivery to tissue, To improve muscle performance and motor function, To improve ability to perform ADL's, To increase tolerance to activity/condition/po sition, To improve performance and independence with ADL's, To decrease level of supervision to perform tasks, To improve gait and locomotor functions, To improve health of tissue, To decrease soft tissue restriction and To increase flexibility/ROM Functional Training to Include: Gait training For the Purpose of:: To improve gait and locomotor functions Manual Therapy Techniques to Include: Passive ROM and Soft tissue mobilization For the Purpose of:: To decrease pain, To increase ROM, To improve muscle performance and motor function and To improve health of tissue Text: Thank you for the opportunity to evaluate your patient. For Medicare and Medicare HMO plans, please review the plan of care and approve it. It will need to be FAXED BACK to us at [phone] for Medicare purposes. For Medicare only, by signing this I certify the plan of care. Please let me know if there are questions or concerns regarding this plan of care. Physician Signature: Date : 03/13/25 1602 (more content not included)... Normal [facility] Cardiology Visit Reporton Cardiology Visit Report [facility] [address] [place] [address] OFFICE VISIT Date of Service: 01/05/25 MR#: [id number] Acct: [id number] Name: ANGELA CELIS Rep #: [id number] : 1955 Provider: LATONIA hall Age/Sex: 69/F Location: [facility] Status: Signed HPI HPI History of Present Illness Details: This is a 69-year-old white female who presents today for outpatient cardiovascular follow up of a history of underlying CAD/intramyocardial bridge superimposed upon hyperlipidemia and hypertension. She has a chronic LBBB and we printed a copy of her ECG for her to carry with her. She denies chest, arm, jaw, or neck discomfort. She states rare palpitations. She denies bilateral lower extremity edema. She denies claudication. She denies shortness of breath with activity, shortness of breath at rest, orthopnea, or PND. She denies chronic cough. She denies significant, sudden weight gain. She denies lightheadedness, dizziness, near-syncope, or syncope. She denies blood in urine, blood in stool, or epistaxis. He denies fever with chills. She denies myalgia. She denies fatigue. Her exercise level has remained stable. Intake Vital Signs 11/24/23 14:28 01/05/25 09:32 Height 5 ft 4 in 5 ft 4 in Weight: 129 lb BMI 22.1 BP 156/80 H Blood Pressure Location Lt brachial Position Sitting Respiration 16 Pulse 73 Pulse Source Monitor Pulse Oximetry (%) 96 Oxygen Delivery Method room air Intake Visit Reasons: 1 Y FU Associate Dean Required: No Accompanied by: Self Is patient in pain?: No Allergies No Known Allergies Allergy (Verified 01/05/25 09:32) Medications ???Medication ???Instructions ???Recorded ???Confirmed ???Type calcium 600 mg (as 1 cap PO BID 08/16/19 01/05/25 His tory carbonate)-vitamin D3 12.5 mcg (500 unit) capsule (Calcium with Vit D3) cholecalciferol (vitamin D3) 25 1,000 unit PO DAILY 08/16/1901/05 History mcg (1,000 unit) capsule glucosamine sulfate 500 mg tablet 1,000 mg PO DAILY 08/16/19 History (Glucosamine) lisinopril 5 mg tablet 5 mg PO DAILY 08/16/19 01/05/25 Hi story hclvqbgj-dxc-jckdt acid 0.4 1 tab PO DAILY 08/16/19 01/05/25 H istory mg-lycopene 300 mcg-lutein 250 mcg tablet (Centrum Silver) ascorbic acid (vitamin C) 500 mg 500 mg PO DAILY 08/15/20 01/05/25 History tablet acetaminophen 650 mg 1,300 mg PO QHS PRN pain 08/26/21 01/05/25 History tablet,extended release (Tylenol Arthritis Pain) naproxen sodium 220 mg tablet 220 mg PO DAILY PRN pain 08/26/21 01/05/25 History (Aleve) ipratropium bromide 42 mcg (0.06 2 spray intranasal DAILY 08/25/22 01/05/25 History %) nasal spray diphenhydramine HCl 25 mg capsule 25 mg PO QHS 11/24/23 01/05/25 Hi story (Benadryl) atorvastatin 20 mg tablet See Rx Instructions .Route 4 01/05/25 Rx .COMPLEX #90 tabs aspirin 81 mg tablet,delayed 81 mg PO Q OTHER DAY 01/05/2512/27 History release (Adult Low Dose Aspirin) coenzyme Q10 75 mg capsule (Ultra 75 mg PO QDAY 01/05/25 01/05/25 H istory CoQ10) fluticasone propionate 50 1 spray intranasal QPM 01/05/25 History mcg/actuation nasal spray,suspension (Flonase Allergy Relief) loratadine 10 mg tablet (Claritin) 10 mg PO QDAY 01/05/25 01/05/25 History Have you fallen in the past year?: No PF[facility] Medical History LBBB (left bundle branch block) Bladder prolapse History of left heart catheterization (LHC) ( 06/25/16) IBS (irritable bowel syndrome) Anxiety Coronary-myocardial bridge Atherosclerotic heart disease of [place] coronary artery without angina pectoris Mixed hyperlipidemia Essential hypertension Surgical History History of hysterectomy History of dilatation and curettage History of back surgery History of tonsillectomy Family History Father CAD (coronary artery disease) Mother CAD (coronary artery disease) Sister Carotid artery disease Brother Heart disease Social History Smoking Status: Never smoker alcohol intake: current details: rare substance use type: does not use caffeine: Yes Type: coffee Number of servings: 2 ROS Const Const: Negative for fatigue or weakness ENT ENT: Negative for dizziness or balance problems Cardio Chest Pain: No Palpitations: Yes (very rare per patient) Edema: None Muscle aches with walking: None Resp Respiratory: Negative for SOB with activity, SOB at rest or SOB orthopnea SOB lying down GI GI: Negative nausea, vomiting or heartburn : Negative f (more content not included)... Normal [facility] IRENA SCREENING W TOMOon 11-01 IRENA SCREENING W HÉCTOR * * *Final Report* * * DATE OF EXAM: Nov 01 2024 1:25PM [facility] [id number] - IRENA SCREENING W HÉCTOR / PROCEDURE REASON: Encounter for screening mammogram for breast cancer * * * * Physician Interpretation * * * * RESULT: [place] [address] [place] [address] #[id number] - IRENA SCREENING W HÉCTOR HISTORY: 69 year-old patient seen for screening and is asymptomatic in both breasts. Patient states no personal history of breast cancer. Patient states no personal history of other cancers. COMPARISON STUDIES: The present examination has been compared to prior imaging studies dated 09/03/2018 (mammogram), 09/05/2019 (mammogram), 11/13/2020 (mammogram), 11/26/2021 (mammogram) and 12/24/2022 (mammogram). MAMMOGRAM TECHNIQUE: The study was acquired using full field digital technology and interpreted from soft copy. Digital Breast Tomosynthesis (DBT) images were obtained and used to assist in the interpretation of this examination. MAMMOGRAM FINDINGS: There are scattered areas of fibroglandular density. No suspicious masses, calcifications or other abnormalities are seen in either breast. There are no significant interval changes. IMPRESSION: There is no mammographic evidence of malignancy in either breast. Routine screening mammogram is recommended. Annual mammogram will be due in 1 year. BI-RADS Category 1: Negative RISK: Based on the Tyrer-Cuzick (TC) risk assessment model, this patient has a 2.4% lifetime risk of developing breast cancer, meaning they are at average risk for developing breast cancer. However, this is only an estimate based on available history provided on the patient's questionnaire. We encourage all patients to talk with their providers about these results, further recommendations for managing breast health, and appropriate supplemental screening options if the patient has dense breast tissue. Interpreting Radiologist: Lillie Sylvester M.D. Electronically signed on: 11/02/2024 Product Inspection Coordinator: TERESA Transcribe Date/Time: Nov 01 2024 1:09P Dictated by: LILLIE SYLVESTER MD This examination was interpreted and the report reviewed and electronically signed by: LILLIE SYLVESTER MD on Nov 02 2024 6:14AM EST [id number] Normal [facility] CNOVon 09-08-2024 CNOV Office Visit (OBGYWM ) ANGELA CELIS ([id number]) 1955 F Date Time Provider Department 09/08/24 1:40 PM SEBASTIAN GALVEZ OBGYWM During your visit today, we recorded the following information about you: Blood pressure Weight Height 110/70 58.8 kg 1.651 m Sebastian Galvez MD 09/08/2024 2:15 PM Signed Time Study Engineer offered: Disha Miller is a 69 year old who presents for an annual gynecologic exam without complaints. Postmenopausal: Yes, no PMB HRT use: No. Last Pap: 09/08/2017 normal HPV: 09/02/2017 negative History of abnormal pap: No Last mammogram: 2022 normal History of abnormal mammogram: No Sexually active: Yes OB History T4 L4 SAB1 IAB0 Ectopic0 Multiple0 Live Births0 [employer] History LMP: 04/02/2005, Hysterectomy Age at Menarche: Age at First : Age at Menopause: [employer] History Comments: Sexual Activity: Yes; Male; hysterectomy Contraception: Surgical PAST MEDICAL HISTORY Diagnosis Date Chronic back pain Cystocele, midline Heart disease 06/2016 Lactose intolerance LBBB (left bundle branch block) Mixed hyperlipidemia 04/29/2021 Osteopenia 09/2019 PMH - PAST MEDICAL HISTORY OF FIBROMYALGIA PMH - PAST MEDICAL HISTORY OF CHRONIC BACK AND KNEE PAIN PMH - PAST MEDICAL HISTORY OF IRRITABLE BLADDER Primary hypertension 07/30/2018 Symptomatic menopausal or female climacteric states Uterovaginal prolapse, incomplete PAST SURGICAL HISTORY Procedure Laterality Date BACK SURGERY HX 06/2017 spinal fusion with decompression L 3-5 at [facility] COLONOSCOPY FLX DX W/COLLJ SPEC WHEN PFRMD 07/15/2011; 2014 Dr Banks DILATION AND CURETTAGE DXAND/THER NONOBSTETRIC PAST SURGICAL HISTORY OF 04/2019 sacro pro flexy TONSILLECTOMY PRIMARY/SECONDARY TOTAL ABDOM HYSTERECTOMY 2020 with Cystocele repair FAMILY HISTORY Problem Relation Age of Onset Alzheimer's Disease Mother also,coronary artery disease Coronary Artery Disease Father other (Chrons Disease) Son Breast Cancer Maternal Aunt Breast Cancer Other maternal neice SOCIAL HISTORY Social History Tobacco Use Smoking status: Never Smokeless tobacco: Never Vaping Use Vaping status: Never Used Substance Use Topics Alcohol use: Yes Comment: Not weekly Drug use: No REVIEW OF SYSTEMS Abdomen: No abdominal pain, nausea, vomiting, diarrhea, or constipation. No bloating, early satiety, indigestion, or increased flatulence. Bladder: No dysuria, gross hematuria, urinary frequency, urinary urgency, or incontinence Breast: No breast lumps, nipple d/c, overlying skin changes, redness or skin retraction Allergies and current medication updated:Yes SENSITIVE EXAM: The sensitive examination was discussed with the Patient or Patient's Authorized Pipe Organ Builder. As applicable, any other physician, advance practice provider, medical student, or other health professional student that will be observing or involved in the sensitive examination for educational or training purposes was discussed with the Patient or Authorized Pipe Organ Builder. The Patient or Authorized Pipe Organ Builder has agreed to proceed with the sensitive examination. (Sensitive examination includes inspection and/or palpation of the breasts, pelvis, prostate and anorectal regions). EXAM: BP 110/70 Ht 5' 5" (1.65m) Wt 129 lb 9.6 oz (58.8kg) LMP 04/02/2005 BMI 21.57 kg/(m2). GENERAL: pleasant, female in no apparent distress HEENT: Normocephalic and atraumatic NECK: full range of motion DERMATOLOGY: Normal, without lesions, non-icteric, and non-hirsute BREAST: soft, non-tender, symmetric, no dominant mass, normal nipple-areolar complex, no lymphadenopathy, and no nipple discharge CHEST: Normal inspiratory effort ABDOMEN: soft, non-tender, and no masses PELVIC: external genitalia atrophic, normal Bartholin's glands, urethra, [place]'s glands, no vulvar lesions, no cervical lesions, good vaginal support, physiologic discharge present, normal appearing perineal body and perianal region, vaginal atrophy noted BIMANUAL: no adnexal masses and non-tender RECTOVAGINAL: deferred. NEURO: exam grossly non-focal EXTREMITIES: normal ASSESSMENT/PLAN: 1) Health maintenance: Pap/HPV screening no longer needed Mammogram ordered Nutrition, exercise and routine health maintenance exams reviewed. Colon cancer screening: up to date with screening TSH/lipids/glucose: followed by PCP Vitamin D: followed by PCP BMD: followed by PCP 2) Follow up one year or sooner as needed Sebastian Galvez DO Referring Provider: SELF [200] Allergies As of Date: 09/08/2024 (No Active Allergies) Date Reviewed: 08/28/2022 Reviewed by: Alecia Schmitz MA - Fully Assessed Reason for Visit: Well Woman [[id number]] Primary Visit Diagnosis:Encounter for gynecological examination (general) (routine) without ab (more content not included)... Normal [facility] Dexa Bone Density Studyon Dexa Bone Density Study [facility] Imaging Services [address] [place] [address] Dexa Bone Density Study MR#: [id number] Acct: [id number] Name: ANGELA CELIS Rep #: [id number] : 1955 F 69 From: Jeffrey wolff MD PCP: Dr. Bunny Benito MD Status: REG CLI Study: Dexa Bone Density Study Date of Exam: 09/06/24 Exam# [id number] Ordering Dr: Bunny Benito [id number] STUDY: DUAL ENERGY X-RAY ABSORPTIOMETRY / DXA REASON FOR EXAM: Female, 69 years old. Z780 TECHNIQUE: Bone Mineral Density (BMD) measurements of lumbar spine and bilateral hips were obtained. COMPARISON: None. FINDINGS: Lumbar Spine (L1-L4): g/cm2 (0.872) / T-score (-1.0) / Z-score (1.0) Findings are suggestive of osteopenia with a low fracture risk. Left Femur Total: g/cm2 (0.882) / T-score (-0.5) / Z-score (1.0) Left Femoral Neck: g/cm2 (0.654) / T-score (-1.8) / Z-score (0.0) Right Femur Total: g/cm2 (0.913) / T-score (-0.2) / Z-score (1.3) Right Femoral Neck: g/cm2 (0.660) / T-score (-1.7) / Z-score (0.1) BD/Dexa Bone Density Study IMPRESSION: The patient is considered osteopenic as outlined below according to World [place] Organization (WHO) criteria with a moderate fracture risk. Reference Information: The T-score is the number of standard deviations above or below the standard which is normal for young adults at their peak bone mineral density. The World Health Organization (WHO) interprets the T-scores as follows: Above -1 Normal bone density Between -1 and -2.5 Osteopenia Equal to / or below -2.5 Osteoporosis As a practical clinical guideline, osteopenia may be graded as follows: Mild -1 through -1.5 Moderate -1.6 through -2.0 Severe -2.1 through -2.4 The Z-score is the number of standard deviations above or below age-matched controls. A Z-score of less than -1.5 would be considered abnormal. References: 1. NIH Osteoporosis and Related Bone Diseases www osteo.org 2. International Society for Clinical Densitometry www iscd.org 3. National Osteoporosis Foundation www nof.org Electronically Signed: Jeffrey Woodward MD at 15:29 EST Reading Location ID and State: [facility] / [place] , Service support , CC: Dr. Bunny Benito MD Product Inspection Coordinator: Signed Normal [facility] ANTINUCLEAR ANTIBODIES DIREC Ton 06-02-2024 ROSENDO,DIRECT Negative Normal Negative [facility] Comment on above: Order Comment: Order Date: 05/31/24Order Info: [id number] - ROSENDO Result Comment: Perf ormed at: CB - [facility] [address] [id number] Senior Information Systems Architect: Liban Perez PhD, Phone: [phone] Performed By: #### L 501.9520, L101.9900, L503.6150, L100.0100, L506.1000, L503.0105, L500.2500, L3100.5475, L503.6550 ####[facility] [id number] [place], [place], [id number] Basic Metabolic Profile (BMP )on 05-31-2024 BUN/CRE 21.1 RATIO High 10-20 [facility] Comment on above: Order Comment: Order Date: 05/31/24 Order Info: 0667-1 - BMP Order Info: 3016-3 - TSH Order Info: 2498-4 - FE Order Info: 2276-4 - FABRICIO Performed By: #### L 501.9520, L101.9900, L503.6150, L100.0100, L506.1000, L503.0105, L500.2500, L3100.5475, L503.6550 #### [facility] [address] [place], [place], [phone] CA,Total 9.4 mg/dL Normal 8.5-10.1 [facility] Comment on above: Order Comment: Order Date: 05/31/24 Order Info: 666-09 - BMP Order Info: 3 - TSH Order Info: 2497-12 - FE Order Info: 4 - FABRICIO Performed By: #### L 501.9520, L101.9900, L503.6150, L100.0100, L506.1000, L503.0105, L500.2500, L3100.5475, L503.6550 #### [facility] [address] [place], [place], [phone] (648) Chloride [Moles/Vol] 105 mmol/L Normal 98-107 [facility] Comment on above: Order Comment: Order Date: 05/31/24 Order Info: 666-09 - BMP Order Info: 3 - TSH Order Info: 2497-12 - FE Order Info: 2275-12 - FABRICIO Performed By: #### L 501.9520, L101.9900, L503.6150, L100.0100, L506.1000, L503.0105, L500.2500, L3100.5475, L503.6550 #### [facility] [address] [place], [place], [phone] (730) CO2 [Moles/Vol] 30.0 mmol/L Normal 21.0-32.0 [facility] Comment on above: Order Comment: Order Date: 05/31/24 Order Info: 666-09 - BMP Order Info: 3 - TSH Order Info: 2497-12 - FE Order Info: 4 - FABRICIO Performed By: #### L 501.9520, L101.9900, L503.6150, L100.0100, L506.1000, L503.0105, L500.2500, L3100.5475, L503.6550 #### [facility] [address] [place], [place], [id number] Creatinine [Mass/Vol] 0.80 mg/dL Normal 0.55-1.02 [facility] Comment on above: Order Comment: Order Date: 05/31/24 Order Info: 06 - BMP Order Info: 3015-11 - TSH Order Info: 2497-12 Order Info: 2275-12 - FABRICIO Result Comment: The validity of the calculated GFR GFRAA in patients over 70 years has not been determined. Clinical correlation is essential. Performed By: #### L 501.9520, L101.9900, L503.6150, L100.0100, L506.1000, L503.0105, L500.2500, L3100.5475, L503.6550 #### [facility] [address] [place], [place], [id number] EST GFR - AA 91 mL/min Normal >60 [facility] Comment on above: Order Comment: Order Date: 05/31/24 Order Info: 666-09 - BMP Order Info: 3015-11 Order Info: 2497-12 Order Info: 2275-12 - FABRICIO Result Comment: Afri can [place] GFR Calc Performed By: #### L 501.9520, L101.9900, L503.6150, L100.0100, L506.1000, L503.0105, L500.2500, L3100.5475, L503.6550 #### [facility] [address] [place], [place], [address] GAP 5 Normal 5-15 [facility] Comment on above: Order Comment: Order Date: 05/31/24 Order Info: 666-09 - Order Info: 3015-11 Order Info: 2497-12 Order Info: 2275-12 - FABRICIO Performed By: #### L 501.9520, L101.9900, L503.6150, L100.0100, L506.1000, L503.0105, L500.2500, L3100.5475, L503.6550 #### [facility] [address] [place], [place], [id number] GFR/1.73 sq M.predicted among non-blacks MDRD (S/P/Bld) [Vol rate/Area] 75 mL/min/{1.73_m2} Normal >60 [facility] Comment on above: Order Comment: Order Date: 05/31/24 Order Info: 666-09 - Order Info: 3015-11 - TSH Order Info: 2497-12 Order Info: 2275-12 - FABRICIO Result Comment: Non- GFR Calc Performed By: #### L 501.9520, L101.9900, L503.6150, L100.0100, L506.1000, L503.0105, L500.2500, L3100.5475, L503.6550 #### [facility] [address] [place], [place], [id number] Glucose [Mass/Vol] 75 mg/dL Normal 74-106 [facility] Comment on above: Order Comment: Order Date: 05/31/24 Order Info: 666-09 Order Info: 3015-11 Order Info: 2497-12 Order Info: 2275-12 - FABRICIO Performed By: #### L 501.9520, L101.9900, L503.6150, L100.0100, L506.1000, L503.0105, L500.2500, L3100.5475, L503.6550 #### [facility] [address] [place], [place], [phone] Potassium [Moles/Vol] 3.6 mmol/L Normal 3.5-5.1 [facility] Comment on above: Order Comment: Order Date: 05/31/24 Order Info: 666-09 Order Info: 3015-11 - TSH Order Info: 2497-12 Order Info: 2275-12 - FABRICIO Performed By: #### L 501.9520, L101.9900, L503.6150, L100.0100, L506.1000, L503.0105, L500.2500, L3100.5475, L503.6550 #### [facility] [address] [place], [place], [id number] Sodium [Moles/Vol] 140 mmol/L Normal 136-145 [facility] Comment on above: Order Comment: Order Date: 05/31/24 Order Info: 06 - BMP Order Info: 3 - TSH Order Info: 2497-12 Order Info: 2275-12 - FABRICIO Performed By: #### L 501.9520, L101.9900, L503.6150, L100.0100, L506.1000, L503.0105, L500.2500, L3100.5475, L503.6550 #### [facility] [address] [place], [place], [phone] Urea nitrogen [Mass/Vol] 17 mg/dL Normal 7-18 [facility] Comment on above: Order Comment: Order Date: 05/31/24 Order Info: 06 - BMP Order Info: 3015-11 - TSH Order Info: 2497-12 Order Info: 2275-12 - FABRICIO Performed By: #### L 501.9520, L101.9900, L503.6150, L100.0100, L506.1000, L503.0105, L500.2500, L3100.5475, L503.6550 #### [facility] [address] [place], [place], [id number] CBC W/Diff, Automatedon Absolute Lymph 1.95 X10 3/uL Normal 0.83-4.51 [facility] Comment on above: Order Comment: Order Date: 05/31/24 Order Info: 0184-1 - CBCD Order Info: 34468-4 - SED Performed By: #### L 501.9520, L101.9900, L503.6150, L100.0100, L506.1000, L503.0105, L500.2500, L3100.5475, L503.6550 #### [facility] [address] [place], [address] Absolute Neut 5.1 X10 3/uL Normal 2.0-7.7 [facility] Comment on above: Order Comment: Order Date: 05/31/24 Order Info: 0184- - CBCD Order Info: 08678-8 - SED Performed By: #### L 501.9520, L101.9900, L503.6150, L100.0100, L506.1000, L503.0105, L500.2500, L3100.5475, L503.6550 #### [facility] [address] [place], [address] Basophils/100 WBC (Bld) 0.9 % Normal 0-1 [facility] Comment on above: Order Comment: Order Date: 05/31/24 Order Info: 0184- - CBCD Order Info: 09376-7 - SED Performed By: #### L 501.9520, L101.9900, L503.6150, L100.0100, L506.1000, L503.0105, L500.2500, L3100.5475, L503.6550 #### [facility] [address] [place], [address] Eosinophils/100 WBC (Bld) 1.4 % Normal 0-5 [facility] Comment on above: Order Comment: Order Date: 05/31/24 Order Info: 0184- - CBCD Order Info: 77351-6 - SED Performed By: #### L 501.9520, L101.9900, L503.6150, L100.0100, L506.1000, L503.0105, L500.2500, L3100.5475, L503.6550 #### [facility] [address] [place], [address] Erythrocyte distribution width (RBC) [Ratio] 13.7 % Normal 11.6-14.6 [facility] Comment on above: Order Comment: Order Date: 05/31/24 Order Info: 183-09 - CBCD Order Info: - SED Performed By: #### L 501.9520, L101.9900, L503.6150, L100.0100, L506.1000, L503.0105, L500.2500, L3100.5475, L503.6550 #### [facility] [address] [place], [place], [phone] (604) Hematocrit (Bld) [Volume fraction] 40.7 % Normal 37-47 [facility] Comment on above: Order Comment: Order Date: 05/31/24 Order Info: 183-09 - CBCD Order Info: - SED Performed By: #### L 501.9520, L101.9900, L503.6150, L100.0100, L506.1000, L503.0105, L500.2500, L3100.5475, L503.6550 #### [facility] [address] [place], [place], [phone] (133) Hemoglobin (Bld) [Mass/Vol] 12.9 g/dL Normal 12.0-15.0 [facility] Comment on above: Order Comment: Order Date: 05/31/24 Order Info: 183-09 - CBCD Order Info: - SED Performed By: #### L 501.9520, L101.9900, L503.6150, L100.0100, L506.1000, L503.0105, L500.2500, L3100.5475, L503.6550 #### [facility] [address] [place], [place], [phone] IG% 0.300 Normal 0.0-0.9 [facility] Comment on above: Order Comment: Order Date: 05/31/24 Order Info: 183-09 - CBCD Order Info: 46845-7 - SED Result Comment: IG% - Immature Granulocytes (promyelocytes, myelocytes and metamyelocytes) > 1% indicates that a LEFT SHIFT is Present. Performed By: #### L 501.9520, L101.9900, L503.6150, L100.0100, L506.1000, L503.0105, L500.2500, L3100.5475, L503.6550 #### [facility] [address] [place], [address] Lymphocytes/100 WBC (Bld) 25.0 % Normal 19-41 [facility] Comment on above: Order Comment: Order Date: 05/31/24 Order Info: 018- - CBCD Order Info: 03747-3 - SED Performed By: #### L 501.9520, L101.9900, L503.6150, L100.0100, L506.1000, L503.0105, L500.2500, L3100.5475, L503.6550 #### [facility] [address] [place], [address] MCH (RBC) [Entitic mass] 30.4 pg Normal 27.0-32.0 [facility] Comment on above: Order Comment: Order Date: 05/31/24 Order Info: 01812-27 - CBCD Order Info: 99253-1 - SED Performed By: #### L 501.9520, L101.9900, L503.6150, L100.0100, L506.1000, L503.0105, L500.2500, L3100.5475, L503.6550 #### [facility] [address] [place], [place], [address] (326) MCHC (RBC) [Mass/Vol] 31.7 g/dL Low 32-36 [facility] Comment on above: Order Comment: Order Date: 05/31/24 Order Info: 01812-27 - CBCD Order Info: 49749-7 - SED Performed By: #### L 501.9520, L101.9900, L503.6150, L100.0100, L506.1000, L503.0105, L500.2500, L3100.5475, L503.6550 #### [facility] [address] [place], [address] MCV (RBC) [Entitic vol] 96.0 fL Normal 81-99 [facility] Comment on above: Order Comment: Order Date: 05/31/24 Order Info: 183- - CBCD Order Info: 64015-7 - SED Performed By: #### L 501.9520, L101.9900, L503.6150, L100.0100, L506.1000, L503.0105, L500.2500, L3100.5475, L503.6550 #### [facility] [address] [place], [address] Monocytes/100 WBC (Bld) 7.4 % Normal 0-10 [facility] Comment on above: Order Comment: Order Date: 05/31/24 Order Info: 183-09 - CBCD Order Info: 76799-8 - SED Performed By: #### L 501.9520, L101.9900, L503.6150, L100.0100, L506.1000, L503.0105, L500.2500, L3100.5475, L503.6550 #### [facility] [address] [place], [address] Neutrophils/100 WBC (Bld) 65.0 % Normal 47-70 [facility] Comment on above: Order Comment: Order Date: 05/31/24 Order Info: 018- - CBCD Order Info: 73290-7 - SED Performed By: #### L 501.9520, L101.9900, L503.6150, L100.0100, L506.1000, L503.0105, L500.2500, L3100.5475, L503.6550 #### [facility] [address] [place], [address] Nucleated RBC (Bld) [#/Vol] 0 10*3/uL Normal 0-5 [facility] Comment on above: Order Comment: Order Date: 05/31/24 Order Info: 018- - CBCD Order Info: 90734-4 - SED Performed By: #### L 501.9520, L101.9900, L503.6150, L100.0100, L506.1000, L503.0105, L500.2500, L3100.5475, L503.6550 #### [facility] [address] [place], [address] Platelet mean volume (Bld) [Entitic vol] 11.7 fL Normal 6.2-12.0 [facility] Comment on above: Order Comment: Order Date: 05/31/24 Order Info: 0184- - CBCD Order Info: 05380-4 - SED Performed By: #### L 501.9520, L101.9900, L503.6150, L100.0100, L506.1000, L503.0105, L500.2500, L3100.5475, L503.6550 #### [facility] [address] [place], [address] Platelets (Bld) [#/Vol] 235 10*3/uL Normal 150-450 [facility] Comment on above: Order Comment: Order Date: 05/31/24 Order Info: 0184- - CBCD Order Info: 35972-1 - SED Performed By: #### L 501.9520, L101.9900, L503.6150, L100.0100, L506.1000, L503.0105, L500.2500, L3100.5475, L503.6550 #### [facility] [address] [place], [address] RBC (Bld) [#/Vol] 4.24 10*6/uL Normal 4.2-5.4 [facility] Comment on above: Order Comment: Order Date: 05/31/24 Order Info: 0184-1 - CBCD Order Info: 24647-4 - SED Performed By: #### L 501.9520, L101.9900, L503.6150, L100.0100, L506.1000, L503.0105, L500.2500, L3100.5475, L503.6550 #### [facility] [address] [place], [place], [id number] [phone] RDW SD 48.4 fl High 35.1-43.9 [facility] Comment on above: Order Comment: Order Date: 05/31/24 Order Info: 0184- - CBCD Order Info: 48548-4 - SED Performed By: #### L 501.9520, L101.9900, L503.6150, L100.0100, L506.1000, L503.0105, L500.2500, L3100.5475, L503.6550 #### [facility] [address] [place], [place], [id number] WBC (Bld) [#/Vol] 7.8 10*3/uL Normal 4.4-11.0 [facility] Comment on above: Order Comment: Order Date: 05/31/24 Order Info: 01812-27 - CBCD Order Info: 36117-3 - SED Performed By: #### L 501.9520, L101.9900, L503.6150, L100.0100, L506.1000, L503.0105, L500.2500, L3100.5475, L503.6550 #### [facility] [address] [place], [place], [address] Erythrocyte Sed Rateon 05-31 SED RATE 5 mm/hr Normal 0-30 [facility] Comment on above: Order Comment: Order Date: 05/31/24 Order Info: 018- - CBCD Order Info: 92555-2 - SED Performed By: #### L 501.9520, L101.9900, L503.6150, L100.0100, L506.1000, L503.0105, L500.2500, L3100.5475, L503.6550 #### [facility] [address] [place], [place], [address] Ferritinon 05-31-2024 Ferritin [Mass/Vol] 36 ng/mL Normal 8-252 [facility] Comment on above: Order Comment: Order Date: 05/31/24Order Info: 67-1 - BMPOrder Info: 3015-3 - TSHOrder Info: 24905-01 - FEOrder Info: 2275-12 - FABRICIO Performed By: #### L 501.9520, L101.9900, L503.6150, L100.0100, L506.1000, L503.0105, L500.2500, L3100.5475, L503.6550 ####[facility] [address] [place], [address] Ironon 05-31-2024 Iron [Mass/Vol] 51 ug/dL Normal 50-170 [facility] Comment on above: Order Comment: Order Date: 05/31/24Order Info: 666- - BMPOrder Info: 3 - TSHOrder Info: 2497-12 - FEOrder Info: 2275-12 - FABRICIO Performed By: #### L 501.9520, L101.9900, L503.6150, L100.0100, L506.1000, L503.0105, L500.2500, L3100.5475, L503.6550 ####[facility] [address] [place], [address] Lumbar Spine 2 or 3 Viewson 05-31-2024 Lumbar Spine 2 or 3 Views [facility] [address] [place] [address] Lumbar Spine 2 or 3 Views MR#: [id number] Acct: [id number] Name: ANGELA CELIS Rep #: [id number] : 1955 F 69 From: Jona Burnham MD PCP: Dr. Bunny Benito MD Status: REG CLI Study: Lumbar Spine 2 or 3 Views Date of Exam: Exam# [id number] Ordering Dr: Bunny Benito [id number] STUDY: X-RAY - LUMBAR SPINE REASON FOR EXAM: Female, 69 years old. Radiculopathy. TECHNIQUE: 2 view(s) of the lumbar spine were obtained. COMPARISON: None FINDINGS: Osteopenia. Normal lumbar lordosis. No scoliosis. Normal vertebral alignment. Posterior fusion from L3 to L5 with apparent bone grafting and with no complicating features identified. Intervertebral disc space narrowing at L3-4 and L4-5. Normal soft tissues. RAD/Lumbar Spine 2 or 3 Views IMPRESSION: Postsurgical changes from L3 to L5 with mild intervertebral disc space narrowing from L3 to L5. No acute finding. Electronically Signed: Jona Burnham MD at 15:58 EDT Reading Location ID and State: [address] [place] [address] , Service support , CC: Dr. Bunny Benito MD Product Inspection Coordinator: Signed Normal [facility] Thyroid Stim Hormone (TSH)on 05-31-2024 TSH 0.981 uIU/mL Normal 0.358-3.740 [facility] Comment on above: Order Comment: Order Date: 05/31/24Order Info: 0667-1 - BMPOrder Info: 3016-3 - TSHOrder Info: 2498-4 - FEOrder Info: 2276-4 - FABRICIO Performed By: #### L 501.9520, L101.9900, L503.6150, L100.0100, L506.1000, L503.0105, L500.2500, L3100.5475, L503.6550 ####[facility] [address] [place], [address] Vitamin B12on 05-31-2024 Cobalamin (Vitamin B12) [Mass/Vol] 501 pg/mL Normal 211-911 [facility] Comment on above: Order Comment: Order Date: 05/31/24 Order Info: 2132-9 - B12 Order Info: 22455-9 - VITD25 Performed By: #### L 501.9520, L101.9900, L503.6150, L100.0100, L506.1000, L503.0105, L500.2500, L3100.5475, L503.6550 #### [facility] [address] [place], [place], [address] Vitamin D,25 Hydroxyon 05-31 Vitamin D 25-OH 73.3 ng/mL Normal [facility] Comment on above: Order Comment: Order Date: 05/31/24 Order Info: 2131-9 - B12 Order Info: 20861-0 - VITD25 Result Comment: Minal min D 25(OH) Status Range Deficiency <20 ng/mL (50nmol/L) Insufficiency 20 - 30 ng/mL (50 - 75 nmol/L) Sufficiency 30 - 100 ng/mL (75 - 250 nmol/L) Toxicity >100 ng/mL (>250 nmol/L) Performed By: #### L 501.9520, L101.9900, L503.6150, L100.0100, L506.1000, L503.0105, L500.2500, L3100.5475, L503.6550 #### [facility] [address] [place], [address] Basophil percentageOrdered B y: David Jung on 12-29-2023 Bilirubin [Mass/Vol] 0.50 mg/dL 0.20-1.00 [facility] Comment on above: For patients on eltr ombopag therapy, use of Dimension [place] TBIL is not recommended. Chloride [Moles/Vol] 107 mmol/L 98-107 [facility] Cholesterol [Mass/Vol] 150 mg/dL <200 [facility] Comment on above: <200 mg/dL Desirable 200-240 mg/dL Borderline >240 mg/dL High Risk Glucose [Mass/Vol] 89 mg/dL 74-106 [facility] Potassium [Moles/Vol] 3.9 mmol/L 3.5-5.1 [facility] Protein [Mass/Vol] 7.0 g/dL 6.4-8.2 [facility] Sodium [Moles/Vol] 141 mmol/L 136-145 [facility] Triglyceride [Mass/Vol] 44 mg/dL <199 [facility] Comment on above: The drugs N-Acetylcy steine and Metamizole may falsely depress this assay.Serum Triglycerides Reference Interval Normal <150 mg/dL Borderline high 150 - 199 mg/dL High 200 - 499 mg/dL Very High > or = 500 mg/dL Laboratory - Chemistry and C hemistry - challengeOrdered By: David Jung on 12-29-2023 Albumin/Globulin [Mass ratio] 1.1 {ratio} 0.9-2.4 [facility] ALP [Catalytic activity/Vol] 48 U/L 45-117 [facility] ALT [Catalytic activity/Vol] 36 U/L 13-56 [facility] Cholesterol in HDL [Mass/Vol] 77 mg/dL >40 [facility] Comment on above: The drugs N-Acetylcy steine and Metamizole may falsely depress this assay. Reference Range HDL <40 mg/dL Low HDL Cholesterol HDL >or= 60 mg/dL High HDL Cholesterol Cholesterol in LDL [Mass/Vol] 64 mg/dL 0-130 [facility] CO2 [Moles/Vol] 29.0 mmol/L 21.0-32.0 [facility] Globulin (S) [Mass/Vol] 3.4 g/dL 2.2-4.2 [facility] Urea nitrogen/Creatinine [Mass ratio] 19.2 mg/mg 10-20 [facility] No Panel InformationOrdered By: David Jung on 12-29-2023 Estimated GFR (MDRD) Amer 87 mL/min >60 [facility] Comment on above: GFR Calc Estimated GFR (MDRD) Non-Af Amer 72 mL/min >60 [facility] Comment on above: Non- GFR Calc Vitamin D 25-Hydroxy 89.8 ng/mL [facility] Comment on above: Vitamin D 25(OH) Sta tus Range Deficiency <20 ng/mL (50nmol/L) Insufficiency 20 - 30 ng/mL (50 - 75 nmol/L) Sufficiency 30 - 100 ng/mL (75 - 250 nmol/L) Toxicity >100 ng/mL (>250 nmol/L) VLDL Cholesterol 9 mg/dL 5-40 [facility] Serum or plasma calcium madina urement (mass/volume)Ordered By: David Jung on 12-29-2023 Calcium [Mass/Vol] 9.0 mg/dL 8.5-10.1 [facility] Serum or plasma creatinine m easurement (mass/volume)Ordered By: David Jung on 12-29-2023 Creatinine [Mass/Vol] 0.83 mg/dL 0.55-1.02 [facility] Comment on above: The validity of the calculated GFR & GFRAA in patients over 70 years has not been determined. Clinical correlation is essential. Serum or plasma thyroid stim ulating hormone (TSH) measurement (units/volume)Ordered By: [place]ellie Jung on 12-29-2023 TSH Qn 1.51 uIU/mL 0.358-3.74 [facility] Serum or plasma urea nitroge n measurement (mass/volume)Ordered By: David Jung on 12-29-2023 Urea nitrogen [Mass/Vol] 16 mg/dL 7-18 [facility] Thin prep Papanicolaou smear with manual screeningOrdered By: Centervilleellie Fabiana on 12-29-2023 Thin prep Papanicolaou smear with manual screening 3.6 g/dL 3.2-5.0 [facility] Thin prep Papanicolaou smear with manual screening 27 U/L 15-37 [facility] Thin prep Papanicolaou smear with manual screening 5 5-15 [facility] No Panel Informationon 09-26 Influenza Types A,B Rapid (Clinic) Negative [facility] POC SARS CoV-2 Antigen Negative [facility] Basophil percentageOrdered B y: Dr. Talbert on 12-24-2022 Bilirubin [Mass/Vol] 0.70 mg/dL 0.20-1.00 [facility] Comment on above: For patients on eltr ombopag therapy, use of Dimension [place] TBIL is not recommended. Cholesterol [Mass/Vol] 141 mg/dL <200 [facility] Comment on above: <200 mg/dL Desirable 200-240 mg/dL Borderline >240 mg/dL High Risk Protein [Mass/Vol] 7.0 g/dL 6.4-8.2 [facility] Triglyceride [Mass/Vol] 45 mg/dL <199 [facility] Comment on above: The drugs N-Acetylcy steine and Metamizole may falsely depress this assay.Serum Triglycerides Reference Interval Normal <150 mg/dL Borderline high 150 - 199 mg/dL High 200 - 499 mg/dL Very High > or = 500 mg/dL Direct bilirubinOrdered By: Dr. Talbert on 12-24-2022 Bilirubin.direct [Mass/Vol] 0.19 mg/dL 0.00-0.30 [facility] Laboratory - Chemistry and C hemistry - challengeOrdered By: Dr. Talbert on 12-24-2022 ALP [Catalytic activity/Vol] 40 U/L 45-117 [facility] ALT [Catalytic activity/Vol] 22 U/L 13-56 [facility] Globulin (S) [Mass/Vol] 3.4 g/dL 2.2-4.2 [facility] IRENA SCREENINGon 12-24-2022 [facility] Serum or plasma albumin madina urement (mass/volume)Ordered By: Dr. Talbert on 12-24-2022 Albumin [Mass/Vol] 3.6 g/dL 3.2-5.0 [facility] Serum or plasma cholesterol in HDL measurement (mass/volume)Ordered By: Dr. Talbert on 12-24-2022 Cholesterol in HDL [Mass/Vol] 73 mg/dL >40 [facility] Comment on above: The drugs N-Acetylcy steine and Metamizole may falsely depress this assay. Reference Range HDL <40 mg/dL Low HDL Cholesterol HDL >or= 60 mg/dL High HDL Cholesterol Serum or plasma cholesterol in VLDL measurement (mass/volume)Ordered By: Dr. Talbert on 12-24-2022 Cholesterol in VLDL [Mass/Vol] 9 mg/dL 5-40 [facility] Serum or plasma low density lipoprotein (LDL) cholesterol measurement (mass/volume)Ordered By: Dr. Talbert on 12-24-2022 Cholesterol in LDL [Mass/Vol] 59 mg/dL 0-130 [facility] Thin prep Papanicolaou smear with manual screeningOrdered By: Dr. Talbert on 12-24-2022 Thin prep Papanicolaou smear with manual screening 23 U/L 15-37 [facility] Ara 04-30-2021 SURAJ Telephone (PREANME) ANGELA CELIS ([id number]) 1955 F Date Time Provider Department 04/30/21 ARABELLA FRANK During your visit today, we recorded the following information about you: Arabella Frank APRN.CNP 04/30/2021 3:45 PM Signed Spoke with Angela regarding her EKG results - new LBBB on pre-op EKG, compared with EKG from Dr. Talbret on 2018 EKG (scanned into [employer]). Advised Angela she will need Echocardiogram prior to upcoming procedure on 05/07/21. Provided Angela with [facility] appointment line to schedule. Order placed. Patient verbalized understanding and has no further questions at this time. Patient also states UA/UC not collected yesterday, she will be bringing tomorrow, 05/01/21. Arabella Frank APRN.CNP 05/01/2021 2:29 PM Signed Spoke with Angela regarding echo results. No wall abnormalities, valvular heart disease or dyskinesia. Nothing further is needed prior to surgery. She verbalized understanding and has no further questions at this time. Perry Jones PA-C 05/03/2021 10:59 AM Signed Addended by: PERRY JONES I on: 05/03/2021 10:59 AM Modules accepted: Orders Allergies As of Date: 04/30/2021 Noted Allergy Reaction environmental [Other] 11/28/2005 Comments: nasal drainage Date Reviewed: 04/29/2021 Reviewed by: Arabella Frank APRN.CNP - Fully Assessed Reason for Visit: Pre-Op Update [997] Results [95] Primary Visit Diagnosis:Preoperativ e examination [Z01.818] Other Visit Diagnoses:LBBB (left bundle branch block) [I44.7] Cystocele, midline [N81.11] Urinary frequency [R35.0] Order(s):ECHO [692789] Order #: [id number]: 1 FUTURE perflutren lipid microspheres 1.3 mL in NaCl (PF) 0.9% 10 mL injection (DEFINITY)Disp: Rfl: sodium chloride 0.9 % (flush) 10 mL (BD POSIFLUSH)Disp: Rfl: URINALYSIS, WITH MICROSCOPIC [SQUAWMIC] Order #: [id number] FUTURE URINE CULTURE [SQURCUL] Order #: [id number] FUTURE Prescriptions as of 05/03/2021 - aspirin, enteric coated (ASPIRIN, ENTERIC COATED) 81 mg EC tablet Take 81 mg by mouth once daily. - Ca-D3-mag ub-snye-imu-bernadette-bor (CALCIUM 600-D3 PLUS, MAG-ZINC,) 600 mg calcium- 20 mcg-50 mg tab Take 600 mg by mouth twice daily. - cholecalciferol, vitamin D3, (VITAMIN D3 ORAL) Take 10,000 Units by mouth once daily. - ZINC ORAL Take 50 mg by mouth once daily. - ASHWAGANDHA ROOT EXTRACT ORAL Take 1 tablet by mouth once daily. - ascorbic acid (VITAMIN C ORAL) Take 1 tablet by mouth once daily. - QUERCETIN DIHYDRATE, BULK, MISC Take 800 mg by mouth once daily. - MEDICATION, NON-DATABASE Take 1 capsule by mouth daily at bedtime. CBD - MEDICATION, NON-DATABASE Take 1 tablet by mouth daily at bedtime. Sleep Well - estradiol (ESTRING) 2 mg (7.5 mcg /24 hour) vaginal ring Use 2 mg vaginally every 3 months. INSERT 1 RING DIRECTED - naproxen sodium (ALEVE) 220 mg cap Take 1 capsule by mouth as needed. - acetaminophen (TYLENOL ARTHRITIS ORAL) Take 2 tablets by mouth daily at bedtime. - loratadine (CLARITIN) 10 mg tablet Take 10 mg by mouth once daily. - atorvastatin (LIPITOR) 20 mg tablet Take 20 mg by mouth daily at bedtime. - lisinopril (PRINIVIL) 5 mg tablet Take 5 mg by mouth once daily. - FOLIC ACID/MULTIVITS-MIN/GARETT T (CENTRUM SILVER ORAL) Take 1 tablet by mouth once daily. - GLUCOSAMINE 500 MG TAB Take 1,000 mg by mouth once daily. Facility-Administered Medications as of 05/03/2021 - perflutren lipid microspheres 1.3 mL in NaCl (PF) 0.9% 10 mL injection (DEFINITY) - sodium chloride 0.9 % (flush) 10 mL (BD POSIFLUSH) Problem List As Of Date 04/30/2021 Noted Resolved Dyspepsia [R10.13] 05/09/2011 04/29/2021 Uterine prolapse without mention of vaginal wal*02/20/2012 02/20/2012 Dyspareunia [[id number]] 02/20/2012 Postmenopausal atrophic vaginitis [N95.2] 02/20/2012 Symptomatic menopausal or female climacteric st*02/20/2012 Cystocele, midline [N81.11] Uterovaginal prolapse, incomplete [N81.2] Osteopenia [M85.80] 07/27/2013 CAD (coronary artery disease) [I25.10] 08/11/2016 Mixed hyperlipidemia [E78.2] 04/29/2021 Primary hypertension [I10] 07/30/2018 Chronic back pain [M54.9, G89.29] LBBB (left bundle branch block) [I44.7] Prescriptions ordered this encounter Disp Refills Start End PERFLUTREN LIPID MICROSPHERES 1.1 MG* 04/30/2021 07/30/2022 Route: INTRAVENOUS SODIUM CHLORIDE 0.9 % (FLUSH) INJECT* 04/30/2021 07/30/2022 Route: INTRAVENOUS Encounter Status:Closed by ARABELLA FRANK on 04/30/21 [facility] HISTORY PHYSICALon HISTORY PHYSICAL HNO ID: [id number] Author: Arabella Frank APRN.CNP Service: ? Author Type: Nurse Practitioner Type: HANDP Filed: 05/01/2021 2:32 PM Note Text: HISTORY AND PHYSICAL EXAMINATION SERVICE DATE: 04/29/2021 SERVICE TIME: 2:35 PM PRIMARY CARE PHYSICIAN: Karmen Berrios MD REASON FOR VISIT: Angela Celis is a 65 year old female who is scheduled for Procedure(s): ROBOTIC LAPAPORSCOPIC SUPRACERVICAL HYSTERECTOMY REM TUBE(S) / OVARY(S) UTERUS=<250G (N/A) ROBOTIC LAPAROSCOPIC COLPOPEXY (N/A) ANTERIOR COLPORRHAPHY REPAIR CYSTOCELE WITH OR W/O REPAIR URETHROCELE INCLUDING CYSTOURETHROSCOPY WHEN PERFORMED (N/A) COLPORRHAPHY POSTERIOR (N/A) PERINEOPLASTY, NON-OBSTETRICAL (N/A) SLING SURGERY FOR STRESS INCONTINENCE W/ TENSION FREE VAG TAPE (N/A) CYSTOSCOPY (N/A) at the request of Dr. Cherelle Barrow for consultation. My final recommendation will be communicated back to the requesting physician by way of shared medical record or letter. Subjective The patient has the following: ACTIVE PROBLEM LIST Dyspareunia Postmenopausal Atrophic Vaginitis Symptomatic Menopausal Or Female Climacteric States Cystocele, Midline Uterovaginal Prolapse, Incomplete Osteopenia Cad (Coronary Artery Disease) Mixed Hyperlipidemia Primary Hypertension Chronic Back Pain Lbbb (Left Bundle Branch Block) CHIEF COMPLAINT: Pre-Op Exam HPI: 65 year old female presents with incomplete uterovaginal prolapse. Patient states the prolapse has been present for quite some time progressively worsening. She experiences pressure in the vaginal area but denies significant pain present. She notices a lot of stopping and starting when urinating. She sits on the toilet a long time to make sure she empties her bladder. She has very occasional leakage present. She goes frequently throughout the day, is up only once at night to void. She denies hematuria, dysuria, recent UTIs. REVIEW OF SYSTEMS: General: No weight loss, malaise or fevers. Neurological: Positive for: impaired sensorium (Present in L foot from past back issues). Negative for: headaches, multiple sclerosis, Parkinson's disease, seizures, TIA and strokes. Respiratory: No history of current cough or dyspnea, or pneumonia in the past 6 weeks. No history of respiratory/pulmonary symptoms or problems. Cardiovascular: Positive for: CAD (Dr. Talbert, 07/2020), hyperlipidemia (on Rx) and hypertension (on Rx) Negative for: arrhythmia, atrial fibrillation, chest pain, CHF, DVT/PE, recent MN and murmur/valvular heart disease. GI: No history of GI symptoms or problems. No history of esophageal varices, recent ascites, or ETOH greater than 2 drinks per day. : SEE HPI Negative for: nephrolithiasis and renal failure. [employer]ENTICE: Negative for abnormal vaginal bleeding, abnormal vaginal discharge. Endocrine: No history of diabetes. Has not taken steroids within the past 30 days. No history of endocrinological symptoms or problems. Hematology: Positive for: bruises/bleeds easily and chronic anti-coagulation/plat elet meds (ASA). Negative for: anemia, factor V Leiden, thrombocytopenia and von Willebrand disease. Oncology: No history of CA metastasis, chemo within 30 days, or radiotherapy within 90 days. No history of oncological symptoms or problems. Psych: No history of psychiatric symptoms or problems. Musculoskeletal: Positive for: back pain (Now occasional, s/p surgery, Sciatica ). Negative for: swelling. Skin: Negative for lesions, rash and itching. PAST MEDICAL HISTORY Diagnosis Date - Chronic back pain - Cystocele, midline - Heart disease 06/2016 - Lactose intolerance - LBBB (left bundle branch block) - Mixed hyperlipidemia 04/29/2021 - Osteopenia 09/2019 - PMH - PAST MEDICAL HISTORY OF FIBROMYALGIA - PMH - PAST MEDICAL HISTORY OF CHRONIC BACK AND KNEE PAIN - PMH - PAST MEDICAL HISTORY OF IRRITABLE BLADDER - Primary hypertension 07/30/2018 - Symptomatic menopausal or female climacteric states - Uterovaginal prolapse, incomplete PAST SURGICAL HISTORY Procedure Laterality Date - BACK SURGERY HX 06/2017 spinal fusion with decompression L 3-5 at [facility] - COLONOSCOP W/ OR W/O BRSH SPEC 07/15/2011; 2014 Dr Banks - TYRELLWY, DIAG AND/OR THERAPEUTIC - REMOVAL OF TONSILS,<12 Y/O FAMILY HISTORY Problem Relation Age of Onset - Alzheimer's Disease Mother also,coronary artery disease - Coronary Artery Disease Father - other (Chrons Disease) Son - Breast Cancer Maternal Aunt - Breast Cancer Other maternal neice Social History Tobacco Use - Smoking status: Never Smoker - Smokeless tobacco: Never Used Vaping Use - Vaping Use: Never used Substance Use Topics - Alcohol use: Yes Comment: Not weekly - Drug use: No Prior to Admission medications as of 04/29/21 1441 Medication Sig Last Dose Taking aspirin, enteric coated (ASPIRIN, ENTERIC COATED) 81 mg EC tablet Take 81 mg by mouth once patricio (more content not included)... [facility] CNOVon 02-12-2021 [facility] Office Visit (UROLAE ) ANGELA CELIS ([id number]) 1955 F Date Time Provider Department 02/12/21 2:30 PM PROC URODYNAMICS UROLAE During your visit today, we recorded the following information about you: Weight Height 55.3 kg 1.651 m Perla Freeman RN 02/12/2021 2:40 PM Signed POST PROCEDURE INSTRUCTIONS Angela Celis February 12, 2021 ? Increase your fluid intake. ? FOLLOW UP APPOINTMENT: 04/15/21 at 10:30am with hCerelle Barrow MD in the [address] [place] [address] office. ? WHEN TO CALL THE DOCTOR: ? If you develop fever (over 101 degrees) or chills. ? If you cannot urinate or empty your bladder. ? If you develop symptoms of a urinary tract infection such as burning or pain with urination, increased frequency of urination or foul smelling urine ? If you have any other questions or problems. Office phone number; [phone] Perla Freeman RN 02/12/2021 4:18 PM Addendum Angela Celis [id number] 1955 February 12, 2021 Diagnoses: Mixed Incontinence UA done: No Procedure Performed: Multichannel urodynamic testing including multichannel cystometrogram, uroflowmetry, pressure voiding study and EMG. Was a uroflow done at some point during the study: Yes Was a cystometrogram performed: Yes Was a UPP done: No Was an EMG done: Yes Was an intraabdominal pressure recorded: Yes Where were pressure catheters placed: Bladder and Vagina Procedure: The patient verified medications and allergies. The procedure was explained to the patient. Immediately prior to the test the patient was given Lidocaine 2% jelly 6 ml to urethra and Macrobid 100 mg #1 by mouth per order. UNIVERSAL PROTOCOL / SAFETY CHECKLIST Procedure to be performed: Urodynamics Sign in Communication: Completed Time Out: Team Confirms the Correct Patient, Correct Procedure, Correct Site and Site Marking, Correct Position (if applicable), Prep and Dry Time (if applicable). Time: 1430 Affirmation of Time Out: N/A Sign Out Discussion: Completed Urodynamic Findings: Uroflow : Patient arrived with a reynolds catheter- No. Patient voided 92 ml; Curve: Intermittent Post void residual 225 ml QMAX 8.1 ; QAVG 4.1 . Cystometrogram: The patient had a cystometrogram EMG: Yes First Sensation 321 ml First desire 380 ml Strong Desire 455 ml Capacity 610 ml The patient did leak with Valsalva. Her first leakage was at 577 ml with Valsalva no destrusor contractions Instability associated with urge: No Instability associated with leakage: No Stress Test: Leak with Valsalva Was patient assessed for VLPP: Yes Leak point pressure testing 205 and 194 cmH2O Baseline 59 Subtracted leak point pressure 146 and 135 cmH2O Reduced Stress Test: No leak with cough/valsalva while sitting and reduced. *Leak with Large cough and then medium cough while standing and reduced. The prolapse was reduced with a speculum Leak point pressure testing 111 and 109 cmH2O Baseline 52 Subtracted leak point pressure 59 and 57 cmH20. Pressure-Flow Voiding Study: EMG: Yes Void 619 ml; Curve: Normal Post void residual: 50 ml Maximum detrusor pressure 31.7 Cm H20 Maximum flow rate: 34.1 ml/sec Average flow rate: 15.7 ml/sec Pressure at peak flow: 22.9 UDS notes: N/A Plan: Will follow up with provider to discuss results and plan of care. Patient tolerated the procedure well. Home going instructions given. Patient able to repeat back understanding of instructions. NANCY Flores Dr., MD ADDENDUM ASSESSMENT: Filling and Storage: Bladder sensation is normal without bladder pain, without urgency and with normal detrusor function. Bladder capacity is normal. There is incompetent urethral closure and evidence of urodynamic stress incontinence. Voiding: Overall voiding function is normal. Urine flow is continuous with a smooth flow curve. Detrusor function during voiding is normal with a normal postvoid residual. Electromyography: Provocative maneuvers produced appropriate changes in waveforms. The EMG shows increased EMG activity with increased intraabdominal pressure. There was a decrease in the EMG activity during voiding consistent with normal function of the pelvic floor. PLAN: Follow-up for surgical planning Cherelle Barrow MD Referring Provider: CHERELLE BARROW [[id number]] Allergies As of Date: 02/12/2021 Noted Allergy Reaction environmental [Other] 11/28/2005 Comments: nasal drainage Date Reviewed: 02/12/2021 Reviewed by: Perla Freeman RN - Fully Assessed Reason for Visit: Incontinence (Mixed Incontinence) [1455] Primary Visit Diagnosis:Mixed incontinence urge and stress (male)(female) [N39.46] Prescriptions as of 02/12/2021 Sig: TYLENOL ARTHRITIS ORAL Take by mouth every 48 hours. LORATADINE 10 MG TABLET Take 10 mg by mouth once patricio* ATORVAS (more content not included)... Normal [facility] .Auto Diffon 07-30-2018 Ammonia mass conc (P) 0.40 10 3/mcL Normal 0.15-1.00 [facility] ([place]) Comment on above: Performed By: #### C KAVITHA ALY, ANEU ####[place] [address]#### GFR, LIPID, CMP ####[address] [address] Basophils Auto #/vol (Bld) 0.10 10 3/mcL Normal 0.00-0.19 [facility] ([place]) Comment on above: Performed By: #### KAVITHA HALL, ANEU ####[place] [address]#### GFR, LIPID, CMP ####[address] [address] Basophils/100 WBC Auto (Bld) 1.1 % Normal 0.0-2.5 [facility] ([place]) Comment on above: Performed By: #### C KAVITHA ALY, ANEU ####[place] [address]#### GFR, LIPID, CMP ####[address] [address] Eosinophils Auto #/vol (Bld) 0.10 10 3/mcL Normal 0.00-0.40 [facility] ([place]) Comment on above: Performed By: #### C BC, ADIFF, ANEU ####[address] [place], [place] [address]#### GFR, LIPID, CMP ####[address] [address] Eosinophils/100 WBC Auto (Bld) 2.4 % Normal 0.0-7.0 [facility] ([place]) Comment on above: Performed By: #### C BC, ADIFF, ANEU ####[address] [place] [address]#### GFR, LIPID, CMP ####[address] [address] Lymphocytes Auto #/vol (Bld) 1.20 10 3/mcL Normal 0.77-3.85 [facility] ([place]) Comment on above: Performed By: #### C BC, ADIFF, ANEU ####[place] [address]#### GFR, LIPID, CMP ####[address] [address] Lymphocytes/100 WBC Auto (Bld) 23.1 % Normal 10.0-50.0 [facility] ([place]) Comment on above: Performed By: #### C BC, ADIFF, ANEU ####[address] [place] [address]#### GFR, LIPID, CMP ####[address] [address] Monocytes/100 WBC Auto (Bld) 8.6 % Normal 1.7-13.0 [facility] ([place]) Comment on above: Performed By: #### C BC, ADIFF, ANEU ####[address] [place] [address]#### GFR, LIPID, CMP ####[address] [address] Neutrophils/100 WBC Auto (Bld) 64.8 % Normal 37.0-80.0 [facility] ([place]) Comment on above: Performed By: #### C BC, ADIFF, ANEU ####[address] [place] [address]#### GFR, LIPID, CMP ####[address] [address] .GFRon 07-30-2018 GFR Non- 67 ml/min/1.73sqm Normal [facility] ([place]) Comment on above: Result Comment: GFR Population mean for , Non- Americans Ages 20-29 = 116 mL/min/1.73 sq.m. Ages 30-39 = 107 mL/min/1.73 sq.m. Ages 40-49 = 99 mL/min/1.73 sq.m. Ages 50-59 = 93 mL/min/1.73 sq.m. Ages 60-69 = 85 mL/min/1.73 sq.m. Ages 70+ = 75 mL/min/1.73 sq.m.Chronic Kidney Disease: Less than 60 mL/min/1.73 square metersEnd Stage Renal Disease: Less than 15 mL/min/1.73 square meters Performed By: #### C KAVITHA ALY, ANEU ####[address] [place], [place] [address]#### GFR, LIPID, CMP ####[address] [address] GFR 82 ml/min/1.73sqm Normal [facility] ([place]) Comment on above: Result Comment: GFR Population mean for , Non- Americans Ages 20-29 = 116 mL/min/1.73 sq.m. Ages 30-39 = 107 mL/min/1.73 sq.m. Ages 40-49 = 99 mL/min/1.73 sq.m. Ages 50-59 = 93 mL/min/1.73 sq.m. Ages 60-69 = 85 mL/min/1.73 sq.m. Ages 70+ = 75 mL/min/1.73 sq.m.Chronic Kidney Disease: Less than 60 mL/min/1.73 square metersEnd Stage Renal Disease: Less than 15 mL/min/1.73 square meters Performed By: #### C BC, ADIFF, ANEU ####[address] [place], [place] [address]#### GFR, LIPID, CMP ####[place] [address] .NEUABSon 07-30-2018 Neutrophil, Absolute 3.40 10 3/mcL Normal 2.85-6.16 [facility] ([place]) Comment on above: Performed By: #### C BC, ADIFF, ANEU ####[place] [address]#### GFR, LIPID, CMP ####[place] [address] CBCon 07-30-2018 Erythrocyte distribution width Auto Ratio (RBC) 13.7 % Normal 11.5-14.5 [facility] ([place]) Comment on above: Performed By: #### C BC, ADIFF, ANEU ####[place] [address]#### GFR, LIPID, CMP ####[place] [address] Hematocrit Auto Volume Fraction (Bld) 40.8 % Normal 37.0-47.0 [facility] ([place]) Comment on above: Performed By: #### C BC, ADIFF, ANEU ####[place] [address]#### GFR, LIPID, CMP ####[place] [address] Hemoglobin mass conc (Bld) 13.4 G/dL Normal 12.0-16.0 [facility] ([place]) Comment on above: Performed By: #### C BC, ADIFF, ANEU ####[place] [address]#### GFR, LIPID, CMP ####[place] [address] MCH Auto Entitic mass (RBC) 29.9 pg Normal 27.0-31.2 [facility] ([place]) Comment on above: Performed By: #### C BC, ADIFF, ANEU ####[address] [place] [address]#### GFR, LIPID, CMP ####[place] [address] MCHC Auto mass conc (RBC) 32.7 G/dL Low 33.0-37.0 [facility] ([place]) Comment on above: Performed By: #### C BC, ADIFF, ANEU ####[place] [place] [address]#### GFR, LIPID, CMP ####[place] [address] MCV Auto Entitic volume (RBC) 91.2 fL Normal 80.0-94.0 [facility] ([place]) Comment on above: Performed By: #### C BC, ADIFF, ANEU ####[place] [address] [address]#### GFR, LIPID, CMP ####[place] [address] Platelet mean volume Auto Entitic volume (Bld) 9.9 fL Normal 7.4-10.4 [facility] ([place]) Comment on above: Performed By: #### C BC, ADIFF, ANEU ####[place] [address]#### GFR, LIPID, CMP ####[place] [address] Platelets Auto #/vol (Bld) 213 10 3/mcL Normal 130-400 [facility] ([place]) Comment on above: Performed By: #### C BC, ADIFF, ANEU ####[place] [address]#### GFR, LIPID, CMP ####[place] [address] RBC Auto #/vol (Bld) 4.47 10 6/mcL Normal 4.20-5.40 [facility] ([place]) Comment on above: Performed By: #### C BC, ADIFF, ANEU ####[address] [place] [address]#### GFR, LIPID, CMP ####[place] [address] WBC Auto #/vol (Bld) 5.20 10 3/mcL Normal 4.60-10.80 [facility] ([place]) Comment on above: Performed By: #### C NIRAV ALYIFF, ANEU ####[place] [place] [address]#### GFR, LIPID, CMP ####[place] [address] CMPon 07-30-2018 Albumin/Globulin mass ratio 1.3 {ratio} Normal 1.1-2.5 [facility] ([place]) Comment on above: Performed By: #### C BC ADIFF, ANEU ####[place] [place] [address]#### GFR, LIPID, CMP ####[place] [address] AST enzyme act/vol 24 U/L Normal 10-40 [facility] ([place]) Comment on above: Performed By: #### KAVITHA HALL, ANEU ####[place] [address]#### GFR, LIPID, CMP ####[place] [address] Globulin Calculated mass conc (S) 3.0 G/dL Normal [facility] ([place]) Comment on above: Performed By: #### NIRAV HALLIFF, ANEU ####[address] [place] [place] [address]#### GFR, LIPID, CMP ####[place] [address] Protein mass conc 7.0 G/dL Normal 6.4-8.2 [facility] ([place]) Comment on above: Performed By: #### C NIRAV ALYIFF, ANEU ####[address] [place] [address]#### GFR, LIPID, CMP ####[place] [address] Albumin mass conc 4.0 G/dL Normal 3.4-4.8 [facility] ([place]) Comment on above: Performed By: #### C BC ADIFF, ANEU ####[place] [address] [place], [place] [address]#### GFR, LIPID, CMP ####[address] [address] ALP enzyme act/vol 55 U/L Normal 40-135 [facility] ([place]) Comment on above: Performed By: #### C BC, ADIFF, ANEU ####[facility] [place] [id number]#### GFR, LIPID, CMP ####[address] [address] ALT enzyme act/vol 29 U/L Normal 10-35 [facility] ([place]) Comment on above: Performed By: #### C BC, ADIFF, ANEU ####[place] [address]#### GFR, LIPID, CMP ####[place] [address] Bili Total 0.5 mg/dL Normal 0.2-1.0 [facility] ([place]) Comment on above: Performed By: #### C BC, ADIFF, ANEU ####[place] [address]#### GFR, LIPID, CMP ####[place] [address] Calcium mass conc 9.6 mg/dL Normal 8.4-10.2 [facility] ([place]) Comment on above: Performed By: #### C BC, ADIFF, ANEU ####[facility] [place] [address]#### GFR, LIPID, CMP ####[address] [address] Chloride molar conc 103 mmol/L Normal 98-107 [facility] ([place] Comment on above: Performed By: #### C BC, ADIFF, ANEU ####[facility] [place] [id number]#### GFR, LIPID, CMP ####[place] [address] CO2 molar conc 30 mmol/L Normal 23-31 [facility] ([place]) Comment on above: Performed By: #### C BC, ADIFF, ANEU ####[address] [place], [place] [address]#### GFR, LIPID, CMP ####[address] [address] Creatinine mass conc 0.85 mg/dL Normal 0.55-1.02 [facility] ([place]) Comment on above: Performed By: #### C BC, ADIFF, ANEU ####[place] [address] [place] [address]#### GFR, LIPID, CMP ####[place] [address] Electrolyte Balance 8.0 mEq/L Normal [facility] ([place] Comment on above: Performed By: #### C BC, ADIFF, ANEU ####[address] [place] [address]#### GFR, LIPID, CMP ####[place] [address] Glucose mass conc 68 mg/dL Low 80-115 [facility] ([place]) Comment on above: Performed By: #### C BC, ADIFF, ANEU ####[place] [place] [address]#### GFR, LIPID, CMP ####[place] [address] Potassium molar conc 4.6 mmol/L Normal 3.5-5.1 [facility] ([place]) Comment on above: Performed By: #### C BC, ADIFF, ANEU ####[address] [place] [address]#### GFR, LIPID, CMP ####[place] [address] Sodium molar conc 141 mmol/L Normal 136-145 [facility] ([place]) Comment on above: Performed By: #### C BC, ADIFF, ANEU ####[address] [address] [place] [address]#### GFR, LIPID, CMP ####[facility] [place] [address] Urea nitrogen mass conc 17 mg/dL Normal 7-18 [facility] ([place]) Comment on above: Performed By: #### C BC, ADIFF, ANEU ####[address] [place], [place] [address]#### GFR, LIPID, CMP ####[facility] [place] [address] Urea nitrogen/Creatinine mass ratio 20 ratio Normal 7-27 [facility] ([place]) Comment on above: Performed By: #### C BC, ADIFF, ANEU ####[address] [place], [place] [address]#### GFR, LIPID, CMP ####[address] [address] LIPIDon 07-30-2018 Cholesterol in HDL mass conc 64 mg/dL High 40-60 [facility] ([place]) Comment on above: Performed By: #### C BC, ADIFF, ANEU ####[facility] [place], [place] [address]#### GFR, LIPID, CMP ####[address] [address] Cholesterol in LDL mass conc 81 mg/dL Normal 0-130 [facility] ([place]) Comment on above: Performed By: #### C BC, ADIFF, ANEU ####[address] [place] [id number]#### GFR, LIPID, CMP ####[facility] [place] [address] Cholesterol mass conc 154 mg/dL Normal 0-200 [facility] ([place]) Comment on above: Result Comment: Chol esterol Reference Interval:Less than 200 [id number] Borderline high [id number] and above High risk Performed By: #### C BC, ADIFF, ANEU ####[address] [place] [id number]#### GFR, LIPID, CMP ####[facility] [place] [address] Triglyceride mass conc 46 mg/dL Normal 0-150 [facility] ([place]) Comment on above: Result Comment: Trig lyceride Reference Interval:Less than 150 [id number] Borderline high [id number] High [id number] or higher Very high risk Performed By: #### C BC, ADIFF, ANEU ####[address] [place], [place] [address]#### GFR, LIPID, CMP ####Zeke [address] [address] .GFRon 11-30-2017 GFR 87 ml/min/1.73sqm Normal [facility] ([place]) Comment on above: Result Comment: GFR Population mean for , Non- Americans Ages 20-29 = 116 mL/min/1.73 sq.m. Ages 30-39 = 107 mL/min/1.73 sq.m. Ages 40-49 = 99 mL/min/1.73 sq.m. Ages 50-59 = 93 mL/min/1.73 sq.m. Ages 60-69 = 85 mL/min/1.73 sq.m. Ages 70+ = 75 mL/min/1.73 sq.m.Chronic Kidney Disease: Less than 60 mL/min/1.73 square metersEnd Stage Renal Disease: Less than 15 mL/min/1.73 square meters Performed By: #### C RE, GFR ####[address] [place], [place] [address] GFR Non- >60 Normal [facility] ([place]) Comment on above: Result Comment: GFR Population mean for , Non- Americans Ages 20-29 = 116 mL/min/1.73 sq.m. Ages 30-39 = 107 mL/min/1.73 sq.m. Ages 40-49 = 99 mL/min/1.73 sq.m. Ages 50-59 = 93 mL/min/1.73 sq.m. Ages 60-69 = 85 mL/min/1.73 sq.m. Ages 70+ = 75 mL/min/1.73 sq.m.Chronic Kidney Disease: Less than 60 mL/min/1.73 square metersEnd Stage Renal Disease: Less than 15 mL/min/1.73 square meters Performed By: #### C RE, GFR ####[address] [place], [place] [address] CREon 11-30-2017 Creatinine mass conc 0.8 mg/dL Normal 0.6-1.2 [facility] ([place]) Comment on above: Performed By: #### C RE, GFR ####[address] [place], [place] [address] Hemogramon 07-21-2017 Erythrocyte distribution width Auto Ratio (RBC) 14.6 % High 11.5-14.5 [facility] Comment on above: Performed By: #### H EMOG ####[address] [address] Erythrocytes (RBC) 3.92 10*6/uL Normal 3.80-5.20 [facility] Comment on above: Performed By: #### H EMOG ####[address] [place] [address] Hematocrit (HCT) 36.6 % Normal 35.0-47.0 [facility] Comment on above: Performed By: #### H EMOG ####[address] [place] [address] Hemoglobin mass conc (Bld) 11.8 g/dL Normal 11.7-16.0 [facility] Comment on above: Performed By: #### H EMOG ####[address] [address] MCH 30.0 pg Normal 26.0-34.0 [facility] Comment on above: Performed By: #### H EMOG ####[address] [place] [address] MCHC mass conc (RBC) 32.1 % Normal 32.0-36.0 [facility] Comment on above: Performed By: #### H EMOG ####[address] [place] [address] MCV 93.4 fL Normal 79.0-98.0 [facility] Comment on above: Performed By: #### H EMOG ####[address] [place] [address] Platelet mean volume (PMV) 9.5 fL Normal 7.4-10.4 [facility] Comment on above: Performed By: #### H EMOG ####[address] [place] [address] Platelets 201 10*3/uL Normal 140-440 [facility] Comment on above: Performed By: #### H EMOG ####[address] [place] [address] WBC (Leukocytes) 12.2 10*3/uL High 3.6-10.7 [facility] Comment on above: Performed By: #### H EMOG ####[address] [place] [address] Basic Metabolic Panelon 10-2 Anion gap 5 mmol/L Normal [facility] Comment on above: Performed By: #### H GHCT, BMP3 ####[address] [address] Creatinine 0.87 mg/dL Normal 0.55-1.40 [facility] Comment on above: Performed By: #### H MAIACT, BMP3 ####[address] [address] eGFR (black) mL/min/{1.73_m2} Normal >60 [facility] Comment on above: Performed By: #### H FLAKITO, BMP3 ####[address] [address] eGFR (non-black) mL/min/{1.73_m2} Normal >60 [facility] Comment on above: Result Comment: Sour ce- MDRD equation with creatinine calibration to IDMS(NKDEP)eGFR not recommended for drug dose adjustment Performed By: #### H MAIACT, BMP3 ####[address] [address] Glucose mass conc 62 mg/dL Low 70-100 [facility] Comment on above: Performed By: #### H GHCT, BMP3 ####[address] [place] [address] Urea nitrogen 11 mg/dL Normal 7-25 [facility] Comment on above: Performed By: #### H GHCT, BMP3 ####[address] [place] [address] Calcium 9.2 mg/dL Normal 8.2-10.1 [facility] Comment on above: Performed By: #### H GHCT, BMP3 ####[address] [place] [address] CO2 30 mmol/L Normal 21-32 [facility] Comment on above: Performed By: #### H GHCT, BMP3 ####[address] [place] [address] Chloride 108 mmol/L Normal 98-109 [facility] Comment on above: Performed By: #### H GHCT, BMP3 ####[address] [place] [address] Potassium molar conc 3.9 mmol/L Normal 3.5-5.1 [facility] Comment on above: Result Comment: Slig htly hemolysed, interpret with caution. Performed By: #### H GHCT, BMP3 ####[address] [place] [address] Sodium 143 mmol/L Normal 135-145 [facility] Comment on above: Performed By: #### H GHCT, BMP3 ####[address] [place] [address] Hemoglobinon 07-20-2017 Hematocrit (HCT) 41.7 % Normal 35.0-47.0 [facility] Comment on above: Performed By: #### H GHCT, BMP3 ####[address] [place] [address] Hemoglobin mass conc (Bld) 13.5 g/dL Normal 11.7-16.0 [facility] Comment on above: Performed By: #### H GHCT, BMP3 ####[address] [place] [address] TS GELon 07-20-2017 TS GEL PATIENT: DUANE Goerge LOC: SDS1I,1SD1,23BILL#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 urinary frequency, urinary urgency, or incontinence Breast: No breast lumps, nipple d/c, overlying skin changes, redness or skin retraction Allergies and current medication updated:Yes SENSITIVE EXAM: The sensitive examination was discussed with the Patient or Patient's Authorized Pipe Organ Builder. As applicable, any other physician, advance practice provider, medical student, or other health professional student that will be observing or involved in the sensitive examination for educational or training purposes was discussed with the Patient or Authorized Pipe Organ Builder. The Patient or Authorized Pipe Organ Builder has agreed to proceed with the sensitive examination. (Sensitive examination includes inspection and/or palpation of the breasts, pelvis, prostate and anorectal regions). EXAM: BP 110/70 Ht 5' 5" (1.65m) Wt 129 lb 9.6 oz (58.8kg) LMP 04/02/2005 BMI 21.57 kg/(m^2). GENERAL: pleasant, female in no apparent distress HEENT: Normocephalic and atraumatic NECK: full range of motion DERMATOLOGY: Normal, without lesions, non-icteric, and non-hirsute BREAST: soft, non-tender, symmetric, no dominant mass, normal nipple-areolar complex, no lymphadenopathy, and no nipple discharge CHEST: Normal inspiratory effort ABDOMEN: soft, non-tender, and no masses PELVIC: external genitalia atrophic, normal Bartholin's glands, urethra, [place]'s glands, no vulvar lesions, no cervical lesions, good vaginal support, physiologic discharge present, normal appearing perineal body and perianal region, vaginal atrophy noted BIMANUAL: no adnexal masses and non-tender RECTOVAGINAL: deferred. NEURO: exam grossly non-focal EXTREMITIES: normal ASSESSMENT/PLAN: 1) Health maintenance: Pap/HPV screening no longer needed Mammogram ordered Nutrition, exercise and routine health maintenance exams reviewed. Colon cancer screening: up to date with screening TSH/lipids/glucose: followed by PCP Vitamin D: followed by PCP BMD: followed by PCP 2) Follow up one year or sooner as needed Sebastian Galvez DO documented in this encounterThe [facility]03-29-2023 Miscellaneous Notes* Letter - Mammography Coordinator - 12/24/2022 4:22 PM EDT December 25, 2022 PID: [id number] Angela Celis [address] [place] [address] Dear Ms. Celis, We are pleased to inform you that the results of your recent breast imaging exam on 12/24/2022 are normal. Early detection of cancer is very important. We also understand recommendations regarding breast cancer screening are controversial. Please discuss with your primary care provider which strategy is best for you and whether a mammogram is right for you. Your imaging studies and report will be kept on file at [facility] as part of your permanent medical record and are available for your continuing care. Thank you for allowing us to help in meeting your health care needs. Sincerely, Dr. Cunningham Interpreting Radiologist (Normal over 40) documented in this encounterThe [facility]03-29-2023 History of Present illness Narrative* Mily Davila, RT(R) - 12/24/2022 8:50 AM EDT Radiology Service Progress Note PATIENT NAME: Angela Celis DATE OF SERVICE: December 24, 2022 TIME: 8:38 AM PATIENT IDENTITY VERIFICATION COMPLETED USING TWO (2) IDENTIFIERS: Name and Date of confirmedby patient verbally. FALL SCREENING: Has the patient had 2 falls in the last year or 1 fall with injury or currently using an Ambulatory Assistive Device (Walker, Cane, Wheelchair, Crutches, etc.)? No PATIENT GENDER DATA: Female. status: : No status: NO. PATIENT RELEVANT IMPLANT DATA REVIEWED: Not Applicable RADIOLOGY DEPARTMENT: Mammography PERIPHERAL IV DATA: Not applicable SIGNED BY: RT Irving(R) December 24, 2022 8:38 AM documented in this encounterThe [facility]12-01-2022 Instructions* Patient Instructions* Sebastian Galvez MD - 08/28/2022 10:37 AM EST Images from the original note were not included. Bowel Preparation Instructions for: Golytely, Nulytely, Trilyte or Colyte (polyethylene glycol 3350and electrolytes) IF YOU DO NOT FOLLOW THESE DIRECTIONS, YOUR COLONOSCOPY WILL BE CANCELLED. English Instructions: Your bowel must be empty so that your doctor can clearly view your colon. Follow all of the instructions in this handout EXACTLY as they are written. Do NOT eat any solid food the ENTIRE day before your colonoscopy. Drink only clear liquids. Buy your bowel preparation at least 5 days before your colonoscopy. TRANSPORTATION on the Day of Your Exam A responsible person MUST be present with you at Check In prior to your colonoscopy and REMAIN in the endoscopy area until you are discharged. You are NOT ALLOWED to drive, take a taxi or bus, or leave the Endoscopy Center ALONE. If you do not have a responsible moving van driver (family member or friend) with you to take you home, your exam cannot be done with sedation and will be cancelled. Please bring a list of all of your current medications, including any Over-the Counter medications with you. Medications If you take insulin, diabetic medications or blood thinners such as Coumadin (warfarin), Plavix (clopidogrel), Ticlid (ticlopidine hydrochloride), Agrylin (anagrelide), Xarelto (Rivaroxaban), Pradaxa(Dabigatran), Eliquis (Apixaban), and Effient (Prasugrel). You MUST call the doctors who orders those medicines for instructions on altering the dosage before your colonoscopy. All other medications should be taken the day of the exam with a sip of water including ASPIRIN. Five (5) Days Before Your Colonoscopy Do NOT take medicines that stop diarrhea - such as Imodium, Kaopectate, or Pepto Bismol. Do NOT take fiber supplements - such as Metamucil, Citrucel, or Perdiem. Do NOT take products that contain iron - such as multi-vitamins (the label lists what is in the products). Do NOT take Vitamin E. Buy the prescription bowel preparation solution at your local pharmacy [facility] 08/2019 Bowel Preparation Instructions for: Golytely, Nulytely, Trilyte or Colyte (polyethylene glycol 3350and electrolytes) Three (3) Days Before Your Colonoscopy Do NOT eat high-fiber foods - such as popcorn, beans, seeds (flax, sunflower, quinoa), multigrain bread, nuts, salad/vegetables, or fresh and dried fruit. One (1) Day Before Your Colonoscopy Only drink clear liquids the ENTIRE DAY before your colonoscopy. Do NOT eat any solid foods. Drink at least 8 ounces of clear liquids every hour after waking up. The clear liquids you can drink include: Clear Liquid (NO RED LIQUIDS) DO NOT DRINK Gatorade, Pedialyte or Powerade Clear broth or bouillon Coffee or tea (no milk or non-dairy creamer) Carbonated and non-carbonated soft drinks Cecil-Aid or other fruit flavored drinks Strained fruit juices (no pulp) Jell-O, popsicles, hard candy Water Alcohol Milk or non-dairy creamers Noodles or vegetables in soup Juice with pulp Liquid you cannot see through Do not use tobacco/vaping products The bowel preparation solution will be consumed in two parts. Mix the solution the evening before your colonoscopy and refrigerate before drinking. You may add the flavor pack that came with the bowel preparation. Do NOT add ice, sugar or any other flavorings to the solution. Part 1 At 6:00 PM - Evening before your colonoscopy Drink an 8-oz glass of bowel preparation every 10 minutes for a total of 8 glasses. You may continue to drink clear liquids until midnight. Part 2 On the day of your colonoscopy you may drink clear liquids up to (three) 3 hours before your procedure. 4 1/2 hours before your colonoscopy Drink an 8-oz glass of bowel preparation every 10 minutes for a total of 8 glasses. Fifteen (15) minutes later, drink an 8-oz glass of clear liquids every 15 minutes for a total of 2 glasses. You may continue to drink clear liquids up to (three) 3 hours before your exam. 2 08/2019 documented in this encounterThe [facility]12-01-2022 History of Present illness Narrative* Sebastian Galvez MD - 08/28/2022 10:05 AM EST Time Study Engineer offered: Patient declines. Angela is a 67 year old who presents for an annual gynecologic exam without complaints. H/o supracervical hysterectomy with uro eeg technologist. Postmenopausal: Yes HRT use: No. Last Pap: 09/08/2017 normal HPV: 09/02/2017 negative History of abnormal pap: No Last mammogram: 2021 normal Sexually active Uses vaginal lubricant and moisturizer Bone density scan 2019 Colonoscopy 2010 OB History T4 L4 SAB1 IAB0 Ectopic0 Multiple0 Live Births0 [employer] History LMP: 04/02/2005, Postmenopausal Age at Menarche: Age at First : Age at Menopause: [employer] History Comments: Sexual Activity: Yes; Male Contraception: No contraception data on record PAST MEDICAL HISTORY Diagnosis Date Chronic back pain Cystocele, midline Heart disease 06/2016 Lactose intolerance LBBB (left bundle branch block) Mixed hyperlipidemia 04/29/2021 Osteopenia 09/2019 PMH - PAST MEDICAL HISTORY OF FIBROMYALGIA PMH - PAST MEDICAL HISTORY OF CHRONIC BACK AND KNEE PAIN PMH - PAST MEDICAL HISTORY OF IRRITABLE BLADDER Primary hypertension 07/30/2018 Symptomatic menopausal or female climacteric states Uterovaginal prolapse, incomplete PAST SURGICAL HISTORY Procedure Laterality Date BACK SURGERY HX 06/2017 spinal fusion with decompression L 3-5 at [facility] COLONOSCOPY FLX DX W/COLLJ SPEC WHEN PFRMD 07/15/2011; 2014 Dr Banks DILATION & CURETTAGE DX&/THER NONOBSTETRIC PAST SURGICAL HISTORY OF 04/2019 [place] flex[place] TONSILLECTOMY PRIMARY/SECONDARY <AGE 11 FAMILY HISTORY Problem Relation Age of Onset Alzheimer's Disease Mother also,coronary artery disease Coronary Artery Disease Father other (Chrons Disease) Son Breast Cancer Maternal Aunt Breast Cancer Other maternal neice SOCIAL HISTORY Social History Tobacco Use Smoking status: Never Smokeless tobacco: Never Vaping Use Vaping Use: Never used Substance Use Topics Alcohol use: Yes Comment: Not weekly Drug use: No REVIEW OF SYSTEMS Abdomen: No abdominal pain, nausea, vomiting, diarrhea, or constipation. No bloating, early satiety, indigestion, or increased flatulence. Bladder: No dysuria, gross hematuria, urinary frequency, urinary urgency, or incontinence Breast: No breast lumps, nipple d/c, overlying skin changes, redness or skin retraction Allergies and current medication updated:Yes EXAM: BP 110/70 Ht 5' 4.5" (1.64m) Wt 129 lb 9.6 oz (58.8kg) LMP 04/02/2005 BMI 21.91 kg/(m^2). GENERAL: pleasant, female in no apparent distress HEENT: Normocephalic, atraumatic, mucus membranes moist, and no lesions NECK: Supple, full range of motion, no adenopathy, and thyroid normal DERMATOLOGY: Normal, without lesions, non-icteric, and non-hirsute BREAST: soft, non-tender, symmetric, no dominant mass, normal nipple-areolar complex, no lymphadenopathy, and no nipple discharge CHEST: Normal inspiratory effort ABDOMEN: soft, non-tender, and no masses PELVIC: external genitalia normal, normal Bartholin's glands, urethra, [place]'s glands, no vulvar lesions, no cervical lesions, good vaginal support, physiologic discharge present, normal appearing perineal body and perianal region BIMANUAL: uterus normal size, shape and consistency, no adnexal masses, and non-tender RECTOVAGINAL: deferred. NEURO: exam grossly non-focal EXTREMITIES: normal ASSESSMENT/PLAN: 1) Health maintenance: Pap/HPV up to date. Mammogram up to date Nutrition, exercise and routine health maintenance exams reviewed. Colon cancer screening: colonoscopy ordered BMD: up to date 2) Follow up one year or sooner as needed Sebastian Galvez DO documented in this encounterThe [facility]05-18-2021 NoteHNO ID: [id number] Author: Perla Freeman RN Service: ? Author Type: Registered Nurse Type: Progress Notes Filed: 02/13/2021 7:46 PM Note Text: Angela Celis [id number] 1955 February 12, 2021 Diagnoses: Mixed Incontinence UA done: No Procedure Performed: Multichannel urodynamic testing including multichannel cystometrogram, uroflowmetry, pressure voiding study and EMG. Was a uroflow done at some point during the study: Yes Was a cystometrogram performed: Yes Was a UPP done: No Was an EMG done: Yes Was an intraabdominal pressure recorded: Yes Where were pressure catheters placed: Bladder and Vagina Procedure: The patient verified medications and allergies. The procedure was explained to the patient. Immediately prior to the test the patient was given Lidocaine 2% jelly 6 ml to urethra and Macrobid 100 mg #1 by mouth per order. UNIVERSAL PROTOCOL / SAFETY CHECKLIST Procedure to be performed: Urodynamics Sign in Communication: Completed Time Out: Team Confirms the Correct Patient, Correct Procedure, Correct Site and Site Marking, Correct Position (if applicable), Prep and Dry Time (if applicable). Time: 1430 Affirmation of Time Out: N/A Sign Out Discussion: Completed Urodynamic Findings: Uroflow : Patient arrived with a reynolds catheter- No. Patient voided 92 ml; Curve: Intermittent Post void residual 225 ml QMAX 8.1 ; QAVG 4.1 . Cystometrogram: The patient had a cystometrogram EMG: Yes First Sensation 321 ml First desire 380 ml Strong Desire 455 ml Capacity 610 ml The patient did leak with Valsalva. Her first leakage was at 577 ml with Valsalva no destrusor contractions Instability associated with urge: No Instability associated with leakage: No Stress Test: Leak with Valsalva Was patient assessed for VLPP: Yes Leak point pressure testing 205 and 194 cmH2O Baseline 59 Subtracted leak point pressure 146 and 135 cmH2O Reduced Stress Test: No leak with cough/valsalva while sitting and reduced. *Leak with Large cough and then medium cough while standing and reduced. The prolapse was reduced with a speculum Leak point pressure testing 111 and 109 cmH2O Baseline 52 Subtracted leak point pressure 59 and 57 cmH20. Pressure-Flow Voiding Study: EMG: Yes Void 619 ml; Curve: Normal Post void residual: 50 ml Maximum detrusor pressure 31.7 Cm H20 Maximum flow rate: 34.1 ml/sec Average flow rate: 15.7 ml/sec Pressure at peak flow: 22.9 UDS notes: N/A Plan: Will follow up with provider to discuss results and plan of care. Patient tolerated the procedure well. Home going instructions given. Patient able to repeat back understanding of instructions. NANCY Flores Dr., MD ADDENDUM ASSESSMENT: Filling and Storage: Bladder sensation is normal without bladder pain, without urgency and with normal detrusor function. Bladder capacity is normal. There is incompetent urethral closure and evidence of urodynamic stress incontinence. Voiding: Overall voiding function is normal. Urine flow is continuous with a smooth flow curve. Detrusor function during voiding is normal with a normal postvoid residual. Electromyography: Provocative maneuvers produced appropriate changes in waveforms. The EMG shows increased EMG activity with increased intraabdominal pressure. There was a decrease in the EMG activity during voiding consistent with normal function of the pelvic floor. PLAN: Follow-up for surgical planning Cherelle B[facility]05-25-2012 History of Past illness Narrative* Problem Noted Date Resolved Date Uterine prolapse without mention of vaginal wall prolapse 02/20/2012 02/20/2012 Dyspepsia 05/09/2011 04/29/2021 documented as of this encounter (statuses as of 08/28/2022) [facility]05-25-2012 History of Past illness Narrative* Problem Noted Date Resolved Date Uterine prolapse without mention of vaginal wall prolapse 02/20/2012 02/20/2012 Dyspepsia 05/09/2011 04/29/2021 documented as of this encounter (statuses as of 12/26/2022) [facility]05-25-2012 History of Past illness Narrative* Problem Noted Date Diagnosed Date Resolved Date Uterine prolapse without men tion of vaginal wall prolapse 02/20/2012 02/20/2012 Dyspepsia 05/09/2011 04/29/2021 documented as of this encounter (statuses as of 08/02/2023) [facility] Ni Schafer [facility] Note Date/Time April 03, 2025 3:58p m [facility] Physical Therapy [facility] [address] [place] [address]. [address] [place] [address] / REHABILITATION SERVICES DISCHARGE SUMMARY MR#: [id number] Acct: [id number] Name: ANGELA CELIS Rep #: [id number] : 1955 69 From: Ni Schafer MP T Referring Dr.: Dr. Bunny Benito MD Stat us: REG RCR Insurance: [employer] SELF PAY INSURANCE Discharge Summary D/C summary: It has been my pleasure to treat ANGELA CELIS referred by Dr. Bunny Benito MD, with the diagnosis of Lumbar DDD, L hip flexor tightness, Pain in L SI for a total of 4 visit(s). Discharge Date: 04/03/25 Please see the following information for a summary of their discharge status. Subjective Subjective: Did not do exercises Thursday and Thursday and had a lot of pain on Thursday night and pain in her leg could not sleep through the night through the night. She had the same pain like through the night the pain was 5/10 and couldnot sleep. She was also wearing new shoes this weekend and not sure if that pipo issue. Pain L SI pain: Pain Intensity (Out of 10): 5 Overall Improvement % Improvement: 0 Objective Objective/Function: Press up with sag increases pain L Quad improved in muscle length but still painful and less than the R Pt is indep with HEP Add ball bridge with HS curl today Goals Goal 1:: I HEP Goal Progress: Goal Met Goal 2:: Be able to change positions without having L SI pain Goal Progress: Not Progressing Goal 3:: Increase flexibility of HS/hip flexor and Quads Goal Progress: Progressing Plan Plan: DC PT back to Dr with indep HEP Probable additional imaging as this pain has been going on for 8 months. D/C Information Discharge Comments: DC PT d/c sentence: If there are questions or concerns regarding this patient's physical therapy, please feel free to call me at [phone]. Thank you for the referral of thispatient. Sincerely, JAVIER Burrell Balance/Gait/Functional tests Balance/Special Test Scores Oswestry Low Back Score: 10 Improvement % Improvement: 0 <Electronically signed by Ni Schafer MPT> 04/03/25 1536 CC: Dr. Bunny Benito MD ~ Signed [facility] Work Phone: Evaluation noteNo assessment information available [facility] Work Phone: Evaluation note* Diagnosis Encounter for gynecological examination (general) (routine) without abnormal findings- Primary Encounter for screening mammogram for breast cancer Colon cancer screening Special screening for malignant neoplasms, colon documented in this encounter [facility] note* Diagnosis Encounter for screening mammogram for breast cancer documented in this encounter [facility] note* Diagnosis Onset Date Resolution Status Bronchitis acute LBBB (left bundle branch block) acute 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 chronic Essential hypertension chron ic Mixed hyperlipidemia [facility] Work Phone: Evaluation note* Diagnosis Preoperative examination- Primary Preoperative examination, unspecified Cystocele, midline Uterovaginal prolapse, incomplete Rectocele Mixed incontinence Mixed incontinence urge and stress (male)(female) Coronary artery disease involving chenega heart without angina pectoris, unspecified vessel or lesion type Mixed hyperlipidemia Primary hypertension Unspecified essential hypertension Chronic back pain, unspecified back location, unspecified back pain laterality LBBB (left bundle branch block) Other left bundle branch block Encounter for gynecological examination (general) (routine) without abnormal findings- Primary Encounter for screening mammogram for breast cancer documented in this encounter [facility] note* Diagnosis Preoperative examination- Primary Preoperative examination, unspecified Cystocele, midline Uterovaginal prolapse, incomplete Rectocele Mixed incontinence Mixed incontinence urge and stress (male)(female) Coronary artery disease involving chenega heart without angina pectoris, unspecified vessel or lesion type Mixed hyperlipidemia Primary hypertension Unspecified essential hypertension Chronic back pain, unspecified back location, unspecified back pain laterality LBBB (left bundle branch block) Other left bundle branch block Encounter for screening mammogram for breast cancer documented in this encounter [facility] for referral (narrative)* Outpatient Procedure (Routine) - Pending Review Specialty Diagnoses / Procedures Referred By Dinorah chairez Referred To Contact [facility] Diagnoses Colon cancer screening Procedures COLONOSCOPY SCREENING COLONOSCOPY FLX DX W/COLLJ SPEC WHEN Sebastian Sellers MD [address] [place] [address] [facility] [address] [place] [address] Referral ID Status Reason Start Date Expiration Date Visits Requested Visits Authorized [id number] Pending Review Auto-Generat ed Referral 08/28/2022 08/28/2023 1 1 * Diagnostic Procedure Only (Routine) - Authorized Specialty Diagnoses / Procedures Referred By Dinorah chairez Referred To Contact [facility] Diagnoses Encounter for screening mammogram for breast cancer Procedures IRENA SCREENING SCREENING MAMMOGRAPHY BI 2-VIEW BREAST INC Sebastian Moreno MD [address] [place] [address] [facility] [address] [id number] Referral ID Status Reason Start Date Expiration Date Visits Requested Visits Authorized [id number] Authorized Auto-Generat ed Referral 08/28/2022 09/27/2023 1 1 [facility] for referral (narrative)* Diagnostic Procedure Only (Routine) - Closed Specialty Diagnoses / Procedures Referred By Dinorah chairez Referred To Contact [facility] Diagnoses Encounter for screening mammogram for breast cancer Procedures IRENA SCREENING SCREENING MAMMOGRAPHY BI 2-VIEW BREAST INC Sebastian Moreno MD [address] [place] [address] [facility] [address] [place] [address] Referral ID Status Reason Start Date Expiration Date V isits Requested Visits Authorized [id number] Closed Auto-Generate d Referral 08/28/2022 09/27/2023 1 1 [facility] for referral (narrative)* Diagnostic Procedure Only (Routine) - Authorized Specialty Diagnoses / Procedures Referred By Dinorah chairez Referred To Contact [facility] Diagnoses Encounter for screening mammogram for breast cancer Procedures IRENA SCREENING W HÉCTOR SCREENING DIGITAL BREAST TOMOSYNTHESIS BI SCREENING MAMMOGRAPHY BI 2-VIEW BREAST INC Sebastian Moreno MD [address] [place] [address] [facility] [address] [place] [address] Referral ID Status Reason Start Date Expiration Date Visits Requested Visits Authorized [id number] Authorized Auto-Generat ed Referral 10/08/2025 1 1 [facility] for referral (narrative)No reason for referral information availableSt[facility] Work Phone: Reason for visit Narrative* Diagnostic Procedure Only (Routine) - Closed Specialty Diagnoses / Procedures Referred By Dinorah chairez Referred To Contact [facility] Diagnoses Encounter for screening mammogram for breast cancer Procedures IRENA SCREENING SCREENING MAMMOGRAPHY BI 2-VIEW BREAST INC Sebastian Moreno MD [address] [place] [address] [facility] [address] [address] Referral ID Status Reason Start Date Expiration Date V isits Requested Visits Authorized [id number] Closed Auto-Generate d Referral 08/28/2022 09/27/2023 1 1 [facility] for visit Narrative* Diagnostic Procedure Only (Routine) - Closed Specialty Diagnoses / Procedures Referred By Dinorah chairez Referred To Contact [facility] Diagnoses Encounter for screening mammogram for breast cancer Procedures IRENA SCREENING W HÉCTOR SCREENING DIGITAL BREAST TOMOSYNTHESIS BI SCREENING MAMMOGRAPHY BI 2-VIEW BREAST INC Sebastian Moreno MD [address] [place] [address] [facility] [address] [address] Referral ID Status Reason Start Date Expiration Date V isits Requested Visits Authorized [id number] Closed Auto-Generate d Referral 09/08/2024 10/08/2025 1 1 [facility] Summary Purpose Family History No Family History Records Found Relationship Condition Age at Onset Recorded Date/T ambrose father Coronary artery disease Unknown mother Coronary artery disease Unknown sister Carotid artery disease Unknown brother Cardiac disease Unknown Advance Directives No Advanced Directives Records FoundDocuments on File Type Date Recorded 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 Advance Directive(s) 05/07/2021 7:56 AM Documents on File Type Date Recorded 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 Advance Directive(s) 05/07/2021 7:56 AM Chief Complaint and Reason for Visit Chief Complaint SOFT TISSUE MASS LEF T FOOT Chief Complaint Cough 1 y fu PREV PFM PT INT LABS Reason for Visit Bronchitis LBBB (left bundle branch block) Atherosclerotic heart disease of chenega coronary artery without angina pectoris Essential hypertension Mixed hyperlipidemia Chief Complaint Admit Date 1 Y FU January 05, 2025 9:2 8am DDD RX HERE March 13, 2025 2:24 pm REQUESTED FU DUE TO RX March 14, 2025 8 :35am Reason for Visit Admit Date LBBB (left bundle branch block) January 052024 9:28am 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 January 05, 2025 9:28am Essential hypertension January 05, 2025 9:28am Mixed hyperlipidemia January 05, 2025 9: 28am Chest pain March 14, 2025 8:35 am LBBB (left bundle branch block) February 8:35am 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 March 14, 2025 8:35am Essential hypertension March 14, 2025 8 :35am Mixed hyperlipidemia March 14, 2025 8:3 5am Chief Complaint Admit Date 1 Y FU January 05, 2025 9:2 8am REQUESTED FU DUE TO RX March 14, 2025 8 :35am DDD RX HERE April 03, 2025 3:00p m Additional Source Comments INFORMATION SOURCE (unrecogn ized section and content) DATE CREATED AUTHOR 03/23/2018 [facility] DATE CREATED AUTHOR AUTHOR'S ORGANIZ ATION 09/05/2018 [facility] ([place]) DATE CREATED AUTHOR AUTHOR'S ORGANIZ ATION 02/19/2021 [facility] DATE CREATED AUTHOR AUTHOR'S ORGANIZ ATION 05/04/2021 [facility] DATE CREATED AUTHOR AUTHOR'S ORGANIZ ATION 11/03/2024 [facility] DATE CREATED AUTHOR AUTHOR'S ORGANIZ ATION 04/17/2025 [facility] Goals (unrecognized section and content) Goals may be documented in a n alternate sectionGoals may be documented in an alternate sectionGoals may be documented in an alternate sectionGoals may be documented in an alternate sectionGoals may be documented in an alternate section Source Comments (unrecognize d section and content) In the event this informatio n is protected by the Federal Confidentiality of Alcohol and Drug Abuse Patient Records regulations: The Federal rules restrict any use of the information to criminally investigate or prosecute any alcohol or drug abuse patient.[facility] the event this information is protected by the Federal Confidentiality of Alcohol and Drug Abuse Patient Records regulations: The Federal rules restrict any use of the information to criminally investigate or prosecute any alcohol or drug abuse patient.[facility] the event this information is protected by the Federal Confidentiality of Alcohol and Drug Abuse Patient Records regulations: The Federal rules restrict any use of the information to criminally investigate or prosecute any alcohol or drug abuse patient.[facility] the event this information is protected by the Federal Confidentiality of Alcohol and Drug Abuse Patient Records regulations: The Federal rules restrict any use of the information to criminally investigate or prosecute any alcohol or drug abuse patient.[facility] the event this information is protected by the Federal Confidentiality of Alcohol and Drug Abuse Patient Records regulations: The Federal rules restrict any use of the information to criminally investigate or prosecute any alcohol or drug abuse patient.[facility] Reason for Visit (unrecogniz ed section and content) Reason Comments Well Woman Reason Comments Well Woman Care Teams (unrecognized sec tion and content) 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 Ian Benito MD Family Provider Active Dr. Ian Benito MD Primary Care Provider Activ e Team Status: Inactive Member Role Status Dates Dr. Ian Benito MD Primary Care Provider Activ e Dr. 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 Bunny Benito MD Family Provider Active Dr. Bunny Benito MD Primary Care Provider Acti ve Team Status: Inactive Member Role Status Dates Dr. Bunny Benito MD Primary Care Provider, Ref erring Provider Active Dr. Samuel Rios MD Attending Provider Active Team Status: Inactive Member Role Status Dates Dr. Bunny Benito MD Primary Care Provider, Ref erring Provider Active LATONIA Jefferson Attending Provider Active Team Status: Inactive Member Role Status Dates Dr. Bunny Benito MD Primary Care Provider Acti ve David Jung MD Attending Provider, Referring Provide r Active Madisyn Almonte ASSESSMENT MANAGER, ASSESSMENT MANAGER-C Other Provider Active Carbon Plant Grinder Relationship Specialty Start Date End Date Bunny Benito MD [address] [facility] [address] PCP - [facility] Medicine 04/29/21 Carbon Plant Grinder Relationship Specialty Start Date End Date Bunny Benito MD [address] [facility] [place], [place] [address] PCP - [facility] Medicine 04/29/21 Team Status: Active Member Role Status Dates Dr. Bunny Benito MD Primary Care Provider Acti ve Team Status: Inactive Member Role Status Dates Dr. Bunny Benito MD Primary Care Provider Acti ve Start: January 05, 2025 End: January 05, 2025 Dr. Bunny Benito MD Referring Provider Active Start: January 05, 2025 End: January 05, 2025 Rogers Glass ASSESSMENT MANAGER, ASSESSMENT MANAGER-C Attending Provider Active S tart: January 05, 2025 End: January 05, 2025 Team Status: Active Member Role Status Dates Dr. Bunny Benito MD Primary Care Provider Acti ve Start: March 13, 2025 Dr. Bunny Benito MD Attending Provider Active Start: March 13, 2025 Dr. Bunny Benito MD Referring Provider Active Start: March 13, 2025 Team Status: Inactive Member Role Status Dates Dr. Bunny Benito MD Primary Care Provider Acti ve Start: March 14, 2025 End: March 14, 2025 Dr. Bunny Benito MD Referring Provider Active Start: March 14, 2025 End: March 14, 2025 Rogers Glass NP, ASSESSMENT MANAGER-C Attending Provider Active S tart: March 14, 2025 End: March 14, 2025 Team Status: Active Member Role/Relationship Status Dates Dr. Bunny Benito MD Primary Care Provider Acti ve Team Status: Inactive Member Role/Relationship Status Dates Dr. Bunny Benito MD Primary Care Provider Acti ve Start: January 05, 2025 End: January 05, 2025 Dr. Bunny Benito MD Referring Provider Active Start: January 05, 2025 End: January 05, 2025 Rogers Glass ASSESSMENT MANAGER, ASSESSMENT MANAGER-C Attending Provider Active S tart: January 05, 2025 End: January 05, 2025 Team Status: Inactive Member Role/Relationship Status Dates Dr. Bunny Benito MD Primary Care Provider Acti ve Start: March 14, 2025 End: March 14, 2025 Dr. Bunny Benito MD Referring Provider Active Start: March 14, 2025 End: March 14, 2025 Rogers Glass ASSESSMENT MANAGER, ASSESSMENT MANAGER-C Attending Provider Active S tart: March 14, 2025 End: March 14, 2025 Team Status: Inactive Member Role/Relationship Status Dates Dr. Bunny Benito MD Primary Care Provider Acti ve Start: April 03, 2025 End: April 03, 2025 Dr. Bunny Benito MD Attending Provider Active Start: April 03, 2025 End: April 03, 2025 Dr. Bunny Benito MD Referring Provider Active Start: April 03, 2025 End: April 03, 2025 FOR RECORDS PERTAINING TO PATIENTS WHO ARE OR HAVE BEEN ENROLLED IN A CHEMICAL DEPENDENCY/SUBSTANCEABUSE PROGRAM, SOME INFORMATION MAY BE OMITTED. This clinical summary was aggregated from multiple sources. Caution should be exercised in using it in the provision of clinical care. This summary normalizes information from multiple sources, and as a consequence, information in this document may materially change the coding, format and clinical context of patient data. In addition, data may be omitted in some cases. CLINICAL DECISIONS SHOULD BE BASED ON THE PRIMARY CLINICAL RECORDS. [employer] provides no warranty or guarantee of the accuracy or completeness of information in this document.
--- NOTE | 2025-04-21 09:19 | MRI_ITS ---
PROCEDURE: SPINE LUMBAR (ROUTINE) 04/21/2025 REASON FOR EXAM: DDD TECHNIQUE: SPINE LUMBAR (ROUTINE) FINDINGS: Normal alignment. Normal vertebral body height. Normal conus. Posterior pedicle screw fusion at L3-4 and L4-5. No subluxation. No compression deformity. No marrow edema. No retroperitoneal mass. L1-L2 is unremarkable. Minimal annular bulging at L2-3 without spinal stenosis. No recurrent pathology at L3-4, L4-5 or L5-S1. MRI/Spine Lumbar (Routine) IMPRESSION: Prior lumbar fusion. Minimal annular bulging at L2-3. No significant spinal s tenosis or nerve root compression Reading [facility]
--- NOTE | 2025-04-21 13:53 | STRESSREP ---
Stress Test Report Date: 04/21 2025 Procedure: Exercise tolerance test/imaging study Indications: Left bundle branch block, chest pain Consent: Per the patient Procedure: The patient exercised on a Zeeshan protocol for 7 minutes achieving a peak heart rate of 129 bpm (86% predicted maximal heart rate) with a peak blood pressure 160/70 mmHg and a peak MET capacity of 10.1 METs. The baseline ECG demonstrated normal sinus rhythm, left bundle branch block. The peak exercise ECG demonstrated no definite ischemic changes. EKG during recovery revealed no definite ischemic changes [There were no cardiac dysrhythmias pretest, during exercise, or recovery]. The functional capacity was considered excellent for age. Patient had chest pressure at peak exertion that improved in the recovery phase.. The examination was discontinued secondary to achieving target heart rate, dyspnea. Impression: 1. Technically adequate (percent predicted maximal heart rate greater than 85%) exercise tolerance test 2. Stress test is negative for exercise-induced EKG changes of ischemia 3. The test test is positive for exercise-induced chest pain 4. Functional capacity is excellent for age 5. Nuclear images pending Myocardial perfusion imaging study: Technique: The patient was injected with 11.6 mCi of technetium 99m Cardiolite and subsequently rest SPECT Cardiolite nuclear imaging was obtained in the horizontal long, vertical long, and short axis views. The patient exercised on a Zeeshan protocol. Please see above for details. The patient was injected with 32.1 mCi of technetium 99m Cardiolite and subsequently stress SPECT Cardiolite nuclear imaging was obtained in the horizontal long, vertical long, and short axis views. A gated Cardiolite study at peak stress was obtained. Interpretation: Rest and stress SPECT Cardiolite nuclear imaging status post realignment, normalization, and attenuation correction, demonstrates mild decrease in the radioisotope uptake in the septum that is worse on the stress images compared to the rest images. There is also small area of the apex with slightly worse uptake on the stress images compared to the rest images. While the findings could be related to left bundle branch block, mild ischemia involving the septum and apex cannot be excluded. The gated Cardiolite study demonstrates no significant regional wall motion abnormalities. The reported LVEF is 67%. Impression: 1. Mild septal and apical ischemia cannot be excluded. 2. The gated Cardiolite study reports an LVEF of 67%. This note was generated with [employer] software. It may contain incorrect words, spelling, and punctuation that were not noted in checking the note before signing.
== END | disposition home or self-care (01) ==
PROVIDERS: PCP Family Medicine; Referring Provider Nurse Practitioner Family; Visit Provider Nurse Practitioner Family
DX: M51.369 Other intervertebral disc degeneration, lumbar region without mention of lumbar back pain or lower extremity pain (principal); I44.7 Left bundle-branch block, unspecified; I25.10 Atherosclerotic heart disease of native coronary artery without angina pectoris; E78.2 Mixed hyperlipidemia; I10 Essential (primary) hypertension; R07.9 Chest pain, unspecified
CPT/HCPCS: 72148; 78452; 93017; 93306; A9500; A4216

== ENCOUNTER 2025-07-10 06:59 | Day surgery (SDC) | payer MEDICARE, SELFPAY ==
[2025-07-07 08:32] VITALS: BMI 20.7
[2025-07-10 07:13] LABS: Hematocrit 43.8 % (37-47); Hemoglobin 14.4 g/dL (12.0-15.0); Immature Granulocytes Count 0.010 X10^3/uL (0.0-0.0); Mean Corp Hgb Conc 32.9 g/dL (32-36); Mean Corpuscular Volume 93.6 fL (81-99); Mean Platelet Vol. 10.6 fl (6.2-12.0); NRBC Flagged by Analyzer 0 % (0-5); Platelet Count 254 K/mm3 (150-450); RBC Distribution Width CV 14.2 % (11.6-14.6); RBC Distribution Width SD 48.9 fl (35.1-43.9); Red Blood Count 4.68 M/mm3 (4.2-5.4); White Blood Count 5.4 K/mm3 (4.4-11.0)
[2025-07-10 08:09] LABS: Anion Gap 7 (5-15); BUN 25 mg/dL (4-19); BUN/Creat Ratio 31.3 RATIO (10-20); Calcium,Total 9.9 mg/dL (7.6-11.0); Carbon Dioxide 28.0 mmol/L (21.0-32.0); Chloride 103 mmol/L (98-108); Estimated Creatinine Clearance 55.70 ml/min (50-250); Glucose 100 mg/dL (70-99); Potassium 4.9 mmol/L (3.3-5.1)
--- NOTE | 2025-07-10 08:55 | CL.D_ITS ---
Patient Name: SHYANNE ZEPEDA Study Date: 07/10/2025 Performing: Kirill Robledo MD Ht: 64 inches 162.56 cm : 1955 Wt: 120.99 lbs 54.88 kg Age: 70 Gender: female BSA: 1.58 PROCEDURE(S) PERFORMED [id number])LHC/COR/LV CLINICAL PROFILE AND INDICATIONS Indications: Suspected CAD Heart Failure: None Stress/Imaging Date: 04/18/25Stress Test with SPECT MPI: Positive Low Risk CAD Presentations: Symptom unlikely to be ischemic. CONCLUSIONS Nonobstructive coronary artery disease with almost 50% right coronary artery stenosis and 40% proximal to mid LAD stenosis with a left bundle branch block RECOMMENDATIONS Recommend aggressive blood pressure treatment, and risk factor modification. DESCRIPTION OF PROCEDURE The patient arrived to the procedure lab. The risks and benefits of the procedure as well as a full description of our services here and current unavailability of surgical backup were fully explained to the patient and/or their significant other prior to the catheterization. The Timeout was completed, verifying the correct patient and procedure. The patient's procedural site was prepped and draped in the usual fashion. Local anesthetic was given subcutaneously to right radial region with Lidocaine 2%. Using a modified Seldinger technique, arterial access was obtained via the right radial artery, a 6Fr sheath was inserted. Right Coronary Artery selective angiography was then performed in multiple views using a 5 Fr. 4.0 Hartland catheter. Left Coronary Artery selective angiography was performed in multiple views using a 5 Fr. 4.0 Hartland catheter. Left Ventriculography was performed in MARTINEZ projection using a 5 Fr. Pigtail catheter. LV to AO pullback pressures were then recorded.The arterial sheath was pulled and a TR Band was applied for hemostasis - 10cc air CORONARY ANGIOGRAPHY DOMINANCE: Right Dominant LEFT HEART ASSESSMENT Left Ventricular Ejection Fraction: by LV Gram 60 % Normal LV wall motion Normal Left Ventricular systolic function LEFT MAIN: Angiographically normal LEFT ANTERIOR DESCENDING ARTERY: Mild calcification, There is mild calcification with proximal eccentric 40% LAD stenosis and a diagonal vessel with a 60% ostial stenosis present. CIRCUMFLEX ARTERY: Eccentric mild 20 to 30% stenosis present. The rest of the vessel does not appear to have significant stenosis. RIGHT CORONARY ARTERY: Dominant vessel with proximal and mid 50% eccentric stenosis present. COMPLICATIONS No Complications PROCEDURE MEDICATIONS Fentanyl 50 mcg IV Versed 1 mg IV Versed 1 mg IV Oxygen: 2 L/min via nasal cannula Heparin given IA 07/10/2025 08:19:55 Verapamil 2.5mg, Ntg 100mcgs, 3000 units of Heparin given IA 07/10/2025 08:19:55 SUMMARY OF HEMODYNAMIC DATA Time AIR REST AO 163/64 (101) SA 08:32:33 LV 168/6, 14 08:38:19 LV 173/7, 14 08:38:26 LV 146/4, 17 08:39:21 LV 139/3, 18 08:39:27 LVp 142/-3, 18 08:39:31 AOp 165/64 (102) 08:39:36 ECG 08:54:43 08:54:43
== END 2025-07-10 10:35 | disposition home or self-care (01) ==
PROVIDERS: Nurse Practitioner Family; PCP Family Medicine; Referring Provider Internal Medicine Cardiovascular Disease; Visit Provider Internal Medicine Cardiovascular Disease
DX: I25.10 Atherosclerotic heart disease of native coronary artery without angina pectoris (principal); E78.2 Mixed hyperlipidemia; I10 Essential (primary) hypertension; R07.9 Chest pain, unspecified; I44.7 Left bundle-branch block, unspecified
CPT/HCPCS: 36415; 80048; 85025; 93458; 99152; 99153; Q9967; C1769; C1894